=== PATIENT | male | born 1975 | race African-American/Black ===

== ENCOUNTER 2016-06-21 06:14 | Day surgery (SDC) | payer OTHER ==
[2016-06-21] MEDS ORDERED: LACTATED RINGERS 1,000 ML IV ONE (07:03)
[2016-06-21] MEDS: INSULIN REGULAR HUMAN 100 UNIT/1 ML 10 ML MDV ONE ×2 (07:48→08:15)
[2016-06-21] MEDS ORDERED: fentaNYL 250 MCG/5 ML VIAL IVP ONE (09:16)
[2016-06-21] MEDS ORDERED: MIDAZOLAM 2 MG/2 ML VIAL IVP ONE (09:16)
== END 2016-06-21 06:15 | disposition home or self-care (01) ==
PROC: 0DJD8ZZ Inspection of Lower Intestinal Tract, Via Natural or Artificial Opening Endoscopic (ICD-10-PCS; principal; 2016-06-21 07:30)
DX: K62.5 Hemorrhage of anus and rectum (principal); K60.2 Anal fissure, unspecified; K64.8 Other hemorrhoids; I10 Essential (primary) hypertension; E11.43 Type 2 diabetes mellitus with diabetic autonomic (poly)neuropathy; Z79.4 Long term (current) use of insulin
CPT/HCPCS: 45378; J1815; J3010; J7120

== ENCOUNTER 2016-09-07 19:34 | Outpatient (CLI) | payer OTHER | END 2016-09-07 19:35 | disposition home or self-care (01) | DX: I10 Essential (primary) hypertension (principal); J01.90 Acute sinusitis, unspecified; M54.5 Low back pain; E11.9 Type 2 diabetes mellitus without complications ==

== ENCOUNTER 2016-10-25 14:41 | Outpatient (CLI) | payer OTHER ==
--- NOTE | 2016-10-25 16:03 | Ultrasound Report ---
SCROTAL DUPLEX: 10/25/2016 CLINICAL INDICATION: Intermittent left testicular pain. TECHNIQUE: Real-time sonographic vascular imaging was performed by the event sales assistant through the scrotum utilizing both color-flow and Doppler spectral analysis. Multiple technical services representative static images were saved for review. FINDINGS: The right testicle measures 3.6 x 3.0 x 1.3 cm. Small calcifications are seen within the testicular parenchyma. No definite mass or abnormal blood flow is seen. No hydrocele or varicocele is appreciated. The right epididymis is unremarkable. The left testicle measures 4.2 x 2.8 x 2.1 cm. The testicle demonstrates normal echotexture and blood flow. No hydrocele or varicocele is seen. The epididymis is unremarkable. IMPRESSION: RIGHT TESTICULAR MICROLITHIASIS. SURVEILLANCE ULTRASOUND IN ONE YEAR IS RECOMMENDED. NORMAL APPEARANCE OF THE LEFT TESTICLE. JOB #: [id number] EXT JOB #: [id number] MARIUSZ
== END 2016-10-25 14:42 | disposition home or self-care (01) ==
LOC: DI 14:41
PROVIDERS: ATTEND Family Medicine
DX: N50.89 Other specified disorders of the male genital organs (principal)
CPT/HCPCS: 76870; 93975

== ENCOUNTER 2017-01-25 07:45 | Outpatient (CLI) | payer OTHER ==
[2017-01-25 12:54] LABS: BASOPHILS # (AUTO) 0.1 10^3/uL (0.0-0.1); BASOPHILS % (AUTO) 0.8 %; EOSINOPHILS # (AUTO) 0.3 10^3/uL (0.0-0.7); EOSINOPHILS % (AUTO) 3.5 %; HCT - HEMATOCRIT 41.2 % (42.0-52.0); LYMPHOCYTES # (AUTO) 2.5 10^3/uL (1.5-3.5); LYMPHOCYTES % (AUTO) 35.4 %; MEAN CORPUSCULAR HEMOGLOBIN 31.4 pg (27.0-31.0); MEAN CORPUSCULAR VOLUME 92.4 fL (80.0-94.0); MEAN PLATELET VOLUME 10.1 fL (7.4-11.4); MONOCYTES # (AUTO) 0.6 10^3/uL (0.0-1.0); MONOCYTES % (AUTO) 8.5 %; NEUTROPHILS # (AUTO) 3.7 10^3/uL (1.5-6.6); NEUTROPHILS % (AUTO) 51.8 %; NUCLEATED RED BLOOD CELLS AUTO 0.1 /100WBC; RED BLOOD COUNT 4.46 10^6/uL (4.70-6.10); UNCORRECTED WHITE BLOOD COUNT 7.1 x10^3/uL; WHITE BLOOD COUNT 7.1 x10^3/uL (4.8-10.8)
[2017-01-25 13:36] LABS: HEMOGLOBIN A1C 1.46 g/dL
[2017-01-25 13:53] LABS: ALBUMIN/GLOBULIN RATIO 1.7 (1.0-2.2); BILIRUBIN,TOTAL 0.4 mg/dL (0.2-1.0); BUN - BLOOD UREA NITROGEN 10 mg/dL (6-20); CALCIUM 8.8 mg/dL (8.5-10.3); CARBON DIOXIDE - CO2 26 mmol/L (21-32); CHLORIDE 107 mmol/L (101-111); CHOL/HDL RATIO 2.9 (<5.0); CHOLESTEROL 149 mg/dL; CREATININE 0.7 mg/dL (0.6-1.2); GFR - MDRD 150 (>89); GLUCOSE 153 mg/dL (70-100); HDL CHOLESTEROL 51 mg/dL; LDL/HDL RATIO 1.7 (<3.6); POTASSIUM 3.8 mmol/L (3.5-5.0); SODIUM 138 mmol/L (135-145); TOTAL PROTEIN 6.4 g/dL (6.7-8.2); TRIGLYCERIDES 56 mg/dL; VLDL CHOLESTEROL 11 mg/dL
== END 2017-01-25 07:46 | disposition home or self-care (01) ==
LOC: LAB.WCP 07:45
PROVIDERS: ATTEND Internal Medicine
DX: E11.40 Type 2 diabetes mellitus with diabetic neuropathy, unspecified (principal)
CPT/HCPCS: 36415; 80053; 80061; 82043; 82570; 83036; 84443; 85025

== ENCOUNTER 2017-01-28 18:10 | Outpatient (CLI) | payer OTHER | END 2017-01-28 18:11 | disposition home or self-care (01) | LOC: DI 18:10 | PROVIDERS: ATTEND Internal Medicine | DX: Z53.9 Procedure and treatment not carried out, unspecified reason (principal) ==

== ENCOUNTER 2017-03-04 15:45 | Outpatient (CLI) | payer OTHER ==
[2017-03-04] MEDS ORDERED: IOPAMIDOL-300 100 ML VIAL IVP ONE (18:44)
[2017-03-04] MEDS ORDERED: IOPAMIDOL-300 50 ML VIAL PO ONE (18:44)
--- NOTE | 2017-03-05 16:39 | CT Report ---
EXAM: CT ABDOMEN AND PELVIS EXAM DATE: 03/04/2017 06:44 p.m. CLINICAL HISTORY: Suprapubic abdomen pain. COMPARISONS: None. TECHNIQUE: Routine helical CT imaging was performed through the abdomen and pelvis. IV contrast: 100 mL of Isovue-300. Enteric contrast: Yes. Reconstructions: Coronal and sagittal. In accordance with CT protocol optimization, one or more of the following dose reduction techniques w ere utilized for this exam: automated exposure control, adjustment of mA and/or KV based on patient s ize, or use of iterative reconstructive technique. FINDINGS: Lung Bases: Unremarkable. Liver: Normal. No masses. Gallbladder/Bile Ducts: Unremarkable. Spleen: Normal. Pancreas: Normal. Adrenal Glands: Normal. Kidneys: Normal. No masses or hydronephrosis. Peritoneal Cavity/Bowel: Normal. No free fluid, free air or adenopathy. No masses or acute inflammato ry process. The appendix is well visualized and normal. Pelvic Organs: The prostate and bladder are unremarkable. Vasculature: No aneurysms or other significant abnormality. Bones: Anterior sacroiliac joint bridging noted. Other: None. IMPRESSION: Normal abdomen and pelvis CT. [facility] Referring Provider Line: [phone] SITE ID: [id number]
== END 2017-03-04 15:46 | disposition home or self-care (01) ==
LOC: DI 15:45
PROVIDERS: ATTEND Family Medicine
DX: R10.9 Unspecified abdominal pain (principal)
CPT/HCPCS: 74177

== ENCOUNTER 2017-06-12 20:21 | Emergency (ER) | payer OTHER ==
[2017-06-12 21:24] LABS: BASOPHILS # (AUTO) 0.1 10^3/uL (0.0-0.1); BASOPHILS % (AUTO) 1.3 %; EOSINOPHILS # (AUTO) 0.3 10^3/uL (0.0-0.7); EOSINOPHILS % (AUTO) 4.2 %; HGB - HEMOGLOBIN 14.5 g/dL (14.0-18.0); LYMPHOCYTES # (AUTO) 2.1 10^3/uL (1.5-3.5); LYMPHOCYTES % (AUTO) 28.8 %; MEAN CORPUSCULAR HEMOGLOBIN 31.3 pg (27.0-31.0); MEAN CORPUSCULAR HGB CONC 34.7 g/dL (32.0-36.0); MEAN CORPUSCULAR VOLUME 90.2 fL (80.0-94.0); MEAN PLATELET VOLUME 8.2 fL (7.4-11.4); MONOCYTES # (AUTO) 0.6 10^3/uL (0.0-1.0); MONOCYTES % (AUTO) 8.5 %; NEUTROPHILS # (AUTO) 4.1 10^3/uL (1.5-6.6); NEUTROPHILS % (AUTO) 57.2 %; PLT - PLATELET COUNT 220 10^3/uL (130-450); RED BLOOD COUNT 4.63 10^6/uL (4.70-6.10); RED CELL DISTRIBUTION WIDTH 13.1 % (12.0-15.0); WHITE BLOOD COUNT 7.2 x10^3/uL (4.8-10.8)
[2017-06-12 21:33] LABS: CALCIUM 9.1 mg/dL (8.5-10.3); CREATININE 0.7 mg/dL (0.6-1.2)
[2017-06-12] MEDS ORDERED: IOPAMIDOL-300 100 ML VIAL ONE (21:52)
[2017-06-12] MEDS ORDERED: IOPAMIDOL-300 100 ML VIAL IVP ONE (22:06)
[2017-06-12 22:32] VITALS: BP 168/100
--- NOTE | 2017-06-12 22:43 | CT Preliminary Report ---
Exam: CT ABDOMEN/PELVIS W/ IMPRESSION: 1. No solid organ injury. 2. Diverticulosis. The appendix. No inflammation. 3. No pneumoperitoneum, ascites or hemoperitoneum. [facility] SITE ID: [id number]
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
== END 2017-06-12 23:03 | disposition home or self-care (01) ==
LOC: ED 20:21
DX: S30.1XXA Contusion of abdominal wall, initial encounter (principal); V43.52XA Car driver injured in collision with other type car in traffic accident, initial encounter; Y92.411 Interstate highway as the place of occurrence of the external cause; E11.65 Type 2 diabetes mellitus with hyperglycemia; E11.42 Type 2 diabetes mellitus with diabetic polyneuropathy; Z79.4 Long term (current) use of insulin; Z79.82 Long term (current) use of aspirin
CPT/HCPCS: 36415; 74177; 80048; 85025; 99283; Q9967

== ENCOUNTER 2017-09-20 08:00 | Outpatient (CLI) | payer OTHER | END 2017-09-20 08:01 | disposition home or self-care (01) | LOC: LAB.WCP 08:00 | PROVIDERS: ATTEND Family Medicine | DX: Z79.891 Long term (current) use of opiate analgesic (principal) | CPT/HCPCS: 80307; 80361; 80365; 81599 ==

== ENCOUNTER 2017-09-28 08:00 | Outpatient (CLI) | payer OTHER ==
[2017-09-28 19:23] LABS: HGB - HEMOGLOBIN 13.8 g/dL (14.0-18.0); MEAN CORPUSCULAR HEMOGLOBIN 30.6 pg (27.0-31.0); MEAN CORPUSCULAR HGB CONC 33.1 g/dL (32.0-36.0); MEAN CORPUSCULAR VOLUME 92.3 fL (80.0-94.0); MEAN PLATELET VOLUME 9.6 fL (7.4-11.4); RED BLOOD COUNT 4.51 10^6/uL (4.70-6.10); RED CELL DISTRIBUTION WIDTH 13.1 % (12.0-15.0); WHITE BLOOD COUNT 8.3 x10^3/uL (4.8-10.8)
== END 2017-09-28 08:01 | disposition home or self-care (01) ==
LOC: LAB.WCP 08:00
PROVIDERS: ATTEND Family Medicine
DX: E11.621 Type 2 diabetes mellitus with foot ulcer (principal); L97.519 Non-pressure chronic ulcer of other part of right foot with unspecified severity
CPT/HCPCS: 36415; 85027

== ENCOUNTER 2017-10-05 10:20 | Outpatient (CLI) | payer OTHER ==
[2017-10-05 12:49] LABS: MEAN RETIC VALUE 118.1; RED BLOOD COUNT 4.58 10^6/uL (4.70-6.10)
[2017-10-05 13:28] LABS: FERRITIN 221.5 ng/mL (23.9-336.2)
[2017-10-05 13:31] LABS: FOLATE 14.7 ng/mL (5.90 - >24.8)
[2017-10-05 13:34] LABS: % IRON SATURATION 31 % (20-50); IRON 80 ug/dL (45-182); TOTAL IRON BINDING CAPACITY 256 ug/dL (250-450); TRANSFERRIN 183 mg/dL (180-329)
== END 2017-10-05 10:21 ==
LOC: LAB.WCP 10:20
PROVIDERS: ATTEND Family Medicine
DX: D64.9 Anemia, unspecified (principal)
CPT/HCPCS: 36415; 82607; 82728; 82746; 83540; 84466; 85044

== ENCOUNTER 2018-04-07 11:17 | Emergency (ER) | payer OTHER ==
[2018-04-07 12:44] LABS: BASOPHILS # (AUTO) 0.1 10^3/uL (0.0-0.1); BASOPHILS % (AUTO) 0.8 %; EOSINOPHILS # (AUTO) 0.2 10^3/uL (0.0-0.7); EOSINOPHILS % (AUTO) 1.9 %; HGB - HEMOGLOBIN 14.8 g/dL (14.0-18.0); LYMPHOCYTES # (AUTO) 1.7 10^3/uL (1.5-3.5); LYMPHOCYTES % (AUTO) 14.4 %; MEAN CORPUSCULAR HEMOGLOBIN 31.8 pg (27.0-31.0); MEAN CORPUSCULAR HGB CONC 34.4 g/dL (32.0-36.0); MEAN CORPUSCULAR VOLUME 92.2 fL (80.0-94.0); MEAN PLATELET VOLUME 8.5 fL (7.4-11.4); MONOCYTES # (AUTO) 1.2 10^3/uL (0.0-1.0); MONOCYTES % (AUTO) 10.2 %; NEUTROPHILS # (AUTO) 8.6 10^3/uL (1.5-6.6); NEUTROPHILS % (AUTO) 72.7 %; PLT - PLATELET COUNT 227 10^3/uL (130-450); RED BLOOD COUNT 4.65 10^6/uL (4.70-6.10); RED CELL DISTRIBUTION WIDTH 12.8 % (12.0-15.0); WHITE BLOOD COUNT 11.8 x10^3/uL (4.8-10.8)
[2018-04-07 13:00] LABS: ALBUMIN 4.2 g/dL (3.2-5.5); ALBUMIN/GLOBULIN RATIO 1.4 (1.0-2.2); BILIRUBIN,TOTAL 0.7 mg/dL (0.2-1.0); CALCIUM 8.7 mg/dL (8.5-10.3); CREATININE 0.9 mg/dL (0.6-1.2); TOTAL PROTEIN 7.1 g/dL (6.7-8.2)
[2018-04-07] MEDS ORDERED: CIPROFLOXACIN 250 MG TABLET PO STA (13:11)
[2018-04-07] MEDS ORDERED: oxyCODONE 5 MG TABLET PO STA (13:12)
[2018-04-07 13:27] LABS: BILIRUBIN,URINE NEGATIVE (NEGATIVE); GLUCOSE, URINE (UA) >=1000 mg/dL (NEGATIVE); KETONES,URINE (UA) NEGATIVE (NEGATIVE); LEUKOCYTE ESTERASE, URINE NEGATIVE (NEGATIVE); NITRITE,URINE NEGATIVE (NEGATIVE); OCCULT BLOOD,URINE NEGATIVE (NEGATIVE); PH,URINE 6.5 PH (5.0-7.5); PROTEIN,URINE NEGATIVE (NEGATIVE); UROBILINOGEN,URINE 0.2 (NORMAL) E.U./dL (NORMAL)
[2018-04-07 13:36] LABS: CLARITY,URINE CLEAR (CLEAR)
[2018-04-07 14:02] VITALS: BP 155/90
--- NOTE | 2018-04-07 14:31 | ED Physician Documentation ---
PD HPI MALE - Stated complaint Stated Complaint: BACK PX/MALE - Chief complaint Chief Complaint: Abd Pain - History obtained from History obtained from: Patient - History of Present Illness Timing - duration: Days (2) Timing - details: Still present Associated symptoms: Testiclar pain Similar symptoms before: Diagnosis (History of prostatitis.) - Additional information Additional information: The patient is a 43-year-old insulin-dependent diabetic male who presents with left testicular pain that started yesterday and is more severe today. He denies fever, nausea, vomiting, or dysuria. He reports history of prostatitis years ago, and states that this feels the same. Review of Systems Constitutional: denies: Fever Nose: denies: Congestion Respiratory: denies: Cough GI: denies: Abdominal Pain, Nausea, Vomiting : reports: Testicular pain (left). denies: Dysuria Skin: denies: Rash PD PAST MEDICAL HISTORY - Past Medical History Past Medical History: Yes Cardiovascular: Hypertension Respiratory: None Endocrine/Autoimmune: Type 2 diabetes, Other GI: GERD : None HEENT: None Psych: Anxiety Musculoskeletal: Chronic back pain, Other Derm: None - Past Surgical History Past Surgical History: No Ortho: Other - Present Medications Home Medications: Ambulatory Orders Medication Instructions Recorded Confirmed HYDROcod/ACETAM 5/325 [Vicodin 1 each PO TID PRN 08/09/13 04/08/18 5/325] Insulin Lispro [Humalog] 72 unit [id number] DAILY 08/09/13 04/08/18 Aspirin [Aspir 81] 81 mg PO DAILY 12/12/13 04/08/18 Ergocalciferol [Vitamin D2] 50,000 units PO TH@0900 04/08/18 04/08/18 Gabapentin 300 mg PO QPM 04/08/18 04/08/18 Lisinopril 10 mg PO DAILY 04/08/18 04/08/18 Sertraline HCl 100 mg PO DAILY 04/08/18 04/08/18 - Allergies Allergies/Adverse Reactions: Allergies Allergy/AdvReac Type Severity Reaction Status Date / Time azithromycin AdvReac Nausea Verified 04/08/18 11:09 - Social History Does the pt smoke?: No Smoking Status: Never smoker Does the pt drink ETOH?: Yes Does the pt have substance abuse?: No - Immunizations Immunizations are current?: Yes - POLST Patient has POLST: No PD ED PE NORMAL - Vitals Vital signs reviewed: Yes (initially hypertensive.) - General General: Alert and oriented X 3, Well developed/nourished - HEENT HEENT: Atraumatic, Pharynx benign - Cardiac Cardiac: RRR - Respiratory Respiratory: No respiratory distress - Abdomen Abdomen: Soft, Non tender - Male Male : Other (There is no scrotal swelling or erythema. The left testicle is tender to palpation, particularly posteriorly, along the epididymis.) - Derm Derm: No rash - Neuro Neuro: Alert and oriented X 3, Normal speech Results - Vitals Vitals: Oxygen O2 Source Room air - Labs Labs: Laboratory Tests 04/07/18 04/07/18 04/07/18 12:05 12:35 12:35 WBC 11.8 H RBC 4.65 L Hgb 14.8 Hct 42.9 MCV 92.2 MCH 31.8 H MCHC 34.4 RDW 12.8 Plt Count 227 MPV 8.5 Neut # (Auto) 8.6 H Lymph # (Auto) 1.7 [place] # (Auto) 1.2 H Eos # (Auto) 0.2 Baso # (Auto) 0.1 Absolute Nucleated RBC 0.00 Nucleated RBC % 0.0 Sodium 136 Potassium 3.8 Chloride 102 Carbon Dioxide 26 Anion Gap 8.0 BUN 13 Creatinine 0.9 Estimated GFR (MDRD) 111 Glucose 280 H POC Whole Bld Glucose 287 H Calcium 8.7 Total Bilirubin 0.7 AST 20 ALT 26 Alkaline Phosphatase 68 Total Protein 7.1 Albumin 4.2 Globulin 2.9 Albumin/Globulin Ratio 1.4 Lipase 20 L Urine Color Urine Clarity Urine pH Ur Specific [place] Urine Protein Urine Glucose (UA) Urine Ketones Urine Occult Blood Urine Nitrite Urine Bilirubin Urine Urobilinogen Ur Leukocyte Esterase Ur Microscopic Review Urine Culture Comments 04/07/18 12:50 WBC RBC Hgb Hct MCV MCH MCHC RDW Plt Count MPV Neut # (Auto) Lymph # (Auto) [place] # (Auto) Eos # (Auto) Baso # (Auto) Absolute Nucleated RBC Nucleated RBC % Sodium Potassium Chloride Carbon Dioxide Anion Gap BUN Creatinine Estimated GFR (MDRD) Glucose POC Whole Bld Glucose Calcium Total Bilirubin AST ALT Alkaline Phosphatase Total Protein Albumin Globulin Albumin/Globulin Ratio Lipase Urine Color YELLOW Urine Clarity CLEAR Urine pH 6.5 Ur Specific [place] 1.015 Urine Protein NEGATIVE Urine Glucose (UA) >=1000 H Urine Ketones NEGATIVE Urine Occult Blood NEGATIVE Urine Nitrite NEGATIVE Urine Bilirubin NEGATIVE Urine Urobilinogen 0.2 (NORMAL) Ur Leukocyte Esterase NEGATIVE Ur Microscopic Review NOT INDICATED Urine Culture Comments NOT INDICATED PD MEDICAL DECISION MAKING - ED course Complexity details: considered differential, d/w patient, d/w family ED course: The patient's presentation is most consistent with left epididymitis. His presentation does not suggest testicular torsion or inguinal hernia. Treatment in the emergency department included administration of ciprofloxacin 500 mg orally and Percocet 1 tablet orally. I discussed with him and his the expected course of illness, antibiotic treatment and outpatient follow-up, as well as potentially worrisome signs or symptoms that should prompt reevaluation in the emergency department. He is being discharged with prescriptions for L evaquin and for Percocet. Departure - Departure Disposition: 01 Home, Self Care Clinical Impression: Epididymitis Condition: Stable Instructions: ED Epididymitis Follow-Up: Yaritza Obrien PA [Primary Care Provider] - Comments: Take Levaquin daily as prescribed. You can use Percocet as prescribed if needed for pain. You can also use ibuprofen, up to 800 mg 3 times daily for its anti-inflammatory effect. Elevate your scrotum on a towel roll when lying down. Follow-up with your primary physician within 1-2 weeks. Call to schedule appointment. Return to the emergency department if you develop increasing pain or testicular swelling, or otherwise worsening symptoms. Forms: Activity restrictions Discharge Date/Time: 04/07/18 14:57
== END 2018-04-07 14:57 | disposition home or self-care (01) ==
LOC: ED 11:17
DX: N45.1 Epididymitis (principal); E11.9 Type 2 diabetes mellitus without complications; Z79.4 Long term (current) use of insulin; I10 Essential (primary) hypertension; Z79.82 Long term (current) use of aspirin
CPT/HCPCS: 36415; 80053; 81003; 83690; 85025; 99283; A9270; 81001; 87086

== ENCOUNTER 2018-04-08 10:49 | Inpatient (IN) | payer OTHER ==
[2018-04-08 11:15] LABS: BILIRUBIN,URINE NEGATIVE (NEGATIVE); GLUCOSE, URINE (UA) >=1000 mg/dL (NEGATIVE); KETONES,URINE (UA) NEGATIVE (NEGATIVE); LEUKOCYTE ESTERASE, URINE NEGATIVE (NEGATIVE); NITRITE,URINE NEGATIVE (NEGATIVE); OCCULT BLOOD,URINE NEGATIVE (NEGATIVE); PH,URINE 5.5 PH (5.0-7.5); PROTEIN,URINE NEGATIVE (NEGATIVE); UROBILINOGEN,URINE 0.2 (NORMAL) E.U./dL (NORMAL)
[2018-04-08 11:16] LABS: CLARITY,URINE CLEAR (CLEAR)
--- NOTE | 2018-04-08 13:02 | ED Physician Documentation ---
PD HPI ABD PAIN - Stated complaint Stated Complaint: LOW BODY PX - Chief complaint Chief Complaint: Abd Pain - History obtained from History obtained from: Patient - History of Present Illness Timing - onset: Other (2 days L testicular pain radiating to groin and abd. Pain is severe and Percocet is not helping. He has had prostatitis in the past and this is somewhat similar. He denies fevers. He was seen yesterday and started on Levaquin for presumed epididymitis.) Review of Systems Ten Systems: 10 systems reviewed and negative Constitutional: denies: Fever, Chills Cardiac: denies: Chest pain / pressure, Palpitations Respiratory: denies: Dyspnea, Cough GI: reports: Abdominal Pain, Nausea, Vomiting. denies: Constipation, Diarrhea PD PAST MEDICAL HISTORY - Past Medical History Cardiovascular: Hypertension Respiratory: None Endocrine/Autoimmune: Type 2 diabetes, Other GI: GERD : None HEENT: None Psych: Anxiety Musculoskeletal: Chronic back pain, Other Derm: None - Past Surgical History Past Surgical History: No Ortho: Other - Present Medications Home Medications: Ambulatory Orders Medication Instructions Recorded Confirmed HYDROcod/ACETAM 5/325 [Vicodin 1 each PO TID 08/09/13 03/09/17 5/325] Insulin Lispro [Humalog] 65 unit SQ DAILY 08/09/13 03/09/17 Aspirin [Aspir 81] 1 tab.ec PO DAILY 12/12/13 03/09/17 EPINEPHrine [Epipen] 1 pkg SQ ONCE PRN 12/12/13 03/09/17 ALPRAZolam [Alprazolam] 0.5 mg PO PRN PRN 03/09/17 03/09/17 Albuterol Sulfate [Proair Hfa 1 - 2 puffs INH Q4H PRN 03/09/17 03/09/17 Inhaler] Lovastatin 10 mg PO DAILY 03/09/17 03/09/17 Omeprazole 20 mg PO BID 03/09/17 03/09/17 Sertraline HCl [Zoloft] 100 mg PO DAILY 03/09/17 03/09/17 Levofloxacin [Levaquin] 500 mg PO DAILY #10 tablet 04/07/18 Oxycodone HCl/Acetaminophen 1 - 2 each PO Q6H PRN #14 tablet 04/07/18 [Percocet 5-325 mg Tablet] - Allergies Allergies/Adverse Reactions: Allergies Allergy/AdvReac Type Severity Reaction Status Date / Time azithromycin AdvReac Nausea Verified 04/08/18 11:09 - Social History Does the pt smoke?: No Smoking Status: Never smoker Does the pt drink ETOH?: Yes Does the pt have substance abuse?: No - Family History Family history: reports: Non contributory - Immunizations Immunizations are current?: Yes - POLST Patient has POLST: No PD ED PE NORMAL - Vitals Vital signs reviewed: Yes - General General: Alert and oriented X 3, Other (He definitely appears uncomfortable, moaning in pain standing by the bedside) - HEENT HEENT: PERRL, EOMI - Neck Neck: Supple, no meningeal sign, No bony TTP - Cardiac Cardiac: RRR, No murmur - Respiratory Respiratory: No respiratory distress, Clear bilaterally - Abdomen Abdomen: Non tender - Male Male : Other (Left testicle is mildly full and tender with normal lie) - Rectal Rectal: Other (Tender prostate but the whole rectal exam is tender, it does not seem to be focally the prostate.) - Back Back: No CVA TTP, No spinal TTP - Derm Derm: Normal color, Warm and dry - Extremities Extremities: No deformity, No tenderness to palpate, No edema, No calf tenderness / cord - Neuro Neuro: Alert and oriented X 3, Normal speech Results - Vitals Vitals: Vital Signs - 24 hr 04/08/18 04/08/18 04/08/18 11:06 12:52 15:17 Temperature 35.8 C L 37.1 C Heart Rate 97 98 82 Respiratory 20 22 16 Rate Blood Pressure 148/82 H 161/93 H 140/78 H O2 Saturation 98 99 98 04/08/18 15:20 Temperature 36.9 C Heart Rate Respiratory Rate Blood Pressure O2 Saturation Oxygen O2 Source Room air - Labs Labs: Laboratory Tests 04/08/18 04/08/18 04/08/18 11:11 13:23 13:23 WBC 13.1 H RBC 4.59 L Hgb 14.6 Hct 42.0 MCV 91.4 MCH 31.8 H MCHC 34.8 RDW 12.7 Plt Count 230 MPV 8.7 Neut # (Auto) 10.1 H Lymph # (Auto) 1.4 L [place] # (Auto) 1.3 H Eos # (Auto) 0.1 Baso # (Auto) 0.1 Absolute Nucleated RBC 0.00 Nucleated RBC % 0.0 Sodium 133 L Potassium 4.3 Chloride 102 Carbon Dioxide 22 Anion Gap 9.0 BUN 11 Creatinine 0.8 Estimated GFR (MDRD) 127 Glucose 408 H POC Whole Bld Glucose Lactic Acid Calcium 8.8 Total Bilirubin 0.6 AST 22 ALT 23 Alkaline Phosphatase 67 Total Protein 7.4 Albumin 4.0 Globulin 3.4 Albumin/Globulin Ratio 1.2 Lipase 20 L Urine Color YELLOW Urine Clarity CLEAR Urine pH 5.5 Ur Specific [place] 1.010 Urine Protein NEGATIVE Urine Glucose (UA) >=1000 H Urine Ketones NEGATIVE Urine Occult Blood NEGATIVE Urine Nitrite NEGATIVE Urine Bilirubin NEGATIVE Urine Urobilinogen 0.2 (NORMAL) Ur Leukocyte Esterase NEGATIVE Ur Microscopic Review NOT INDICATED Urine Culture Comments NOT INDICATED 04/08/18 04/08/18 13:23 15:16 WBC RBC Hgb Hct MCV MCH MCHC RDW Plt Count MPV Neut # (Auto) Lymph # (Auto) [place] # (Auto) Eos # (Auto) Baso # (Auto) Absolute Nucleated RBC Nucleated RBC % Sodium Potassium Chloride Carbon Dioxide Anion Gap BUN Creatinine Estimated GFR (MDRD) Glucose POC Whole Bld Glucose 274 H Lactic Acid 1.7 Calcium Total Bilirubin AST ALT Alkaline Phosphatase Total Protein Albumin Globulin Albumin/Globulin Ratio Lipase Urine Color Urine Clarity Urine pH Ur Specific [place] Urine Protein Urine Glucose (UA) Urine Ketones Urine Occult Blood Urine Nitrite Urine Bilirubin Urine Urobilinogen Ur Leukocyte Esterase Ur Microscopic Review Urine Culture Comments - Rads (name of study) CT A/P Radiology: EMP read contemporaneously (Inflammation of the rectum and the distal perirectal space with left lateral wall rectal abscess but a small) PD MEDICAL DECISION MAKING - ED course ED course: This is a morbidly obese poorly controlled type II diabetic who presents with worsening pain in the groin. Diagnosed clinically with epididymitis yesterday but worse pain today. Differential was broad and included Rimma's. As such both ultrasound and CT were done with findings showing a rectal abscess with rectal cellulitis. Given his size and comorbidities probably needs inpatient admission for IV antibiotics, potential drainage if it does not go down on its own. Spoke with Dr. Solis, the on-call surgeon at 3:[address] Richey the fundraising sale representative for admission at 3:25 PM Departure - Departure Disposition: [facility] DC/Xfer Clinical Impression: Rectal abscess, Rectal cellulitis Condition: Stable
[2018-04-08] MEDS ORDERED: HYDROmorphone 1 MG/ML CARPUJECT IVP STA ×2 (13:09→16:46)
[2018-04-08] MEDS ORDERED: ONDANSETRON 4 MG/2 ML VIAL IVP STA (13:09)
[2018-04-08] MEDS ORDERED: IOVERSOL 320 100 ML VIAL IVP ONE ×2 (13:20→13:57)
[2018-04-08 13:29] LABS: BASOPHILS # (AUTO) 0.1 10^3/uL (0.0-0.1); BASOPHILS % (AUTO) 0.9 %; EOSINOPHILS # (AUTO) 0.1 10^3/uL (0.0-0.7); EOSINOPHILS % (AUTO) 1.1 %; HGB - HEMOGLOBIN 14.6 g/dL (14.0-18.0); LYMPHOCYTES # (AUTO) 1.4 10^3/uL (1.5-3.5); LYMPHOCYTES % (AUTO) 11.1 %; MEAN CORPUSCULAR HEMOGLOBIN 31.8 pg (27.0-31.0); MEAN CORPUSCULAR HGB CONC 34.8 g/dL (32.0-36.0); MEAN CORPUSCULAR VOLUME 91.4 fL (80.0-94.0); MEAN PLATELET VOLUME 8.7 fL (7.4-11.4); MONOCYTES # (AUTO) 1.3 10^3/uL (0.0-1.0); MONOCYTES % (AUTO) 9.9 %; NEUTROPHILS # (AUTO) 10.1 10^3/uL (1.5-6.6); PLT - PLATELET COUNT 230 10^3/uL (130-450); RED BLOOD COUNT 4.59 10^6/uL (4.70-6.10); RED CELL DISTRIBUTION WIDTH 12.7 % (12.0-15.0); WHITE BLOOD COUNT 13.1 x10^3/uL (4.8-10.8)
[2018-04-08 13:44] LABS: ALBUMIN/GLOBULIN RATIO 1.2 (1.0-2.2); BILIRUBIN,TOTAL 0.6 mg/dL (0.2-1.0); CALCIUM 8.8 mg/dL (8.5-10.3); CREATININE 0.8 mg/dL (0.6-1.2); TOTAL PROTEIN 7.4 g/dL (6.7-8.2)
--- NOTE | 2018-04-08 14:29 | CT Report ---
Reason: IV only, LLQ pain, go through mid thigh? NSTI Procedure Date: 04/08/2018 Accession Number: [id number] / [id number] Procedure: CT - Abdomen/Pelvis W/ CPT Code: FULL RESULT: EXAM: CT ABDOMEN AND PELVIS EXAM DATE: 04/08/2018 01:53 PM. CLINICAL HISTORY: IV only, LLQ pain, go through mid thigh? NSTI. COMPARISONS: ABDOMEN/PELVIS W/ 06/12/2017 10:06 PM. TECHNIQUE: Routine helical CT imaging was performed through the abdomen and pelvis. IV contrast: optiray 320 100 ml. Enteric contrast: No. Reconstructions: Coronal and sagittal. In accordance with CT protocol optimization, one or more of the following dose reduction techniques were utilized for this exam: automated exposure control, adjustment of mA and/or KV based on patient size, or use of iterative reconstructive technique. FINDINGS: Lung Bases: There is a small clustered nodular density in the left lower lobe on images 2 and 3. Liver: Normal. No masses. Gallbladder/Bile Ducts: Unremarkable. Spleen: Normal. Pancreas: Normal. Adrenal Glands: Normal. Kidneys: There is a small cyst in the upper pole of the left kidney. Kidneys appear otherwise normal. Peritoneal Cavity/Bowel: The stomach and small bowel appear within normal limits. There is no colonic dilation or obstruction. The appendix appears normal. There is new thickening of the wall of the rectum. There is a moderate amount of perirectal fat stranding. There is a small hypodense structure in the left lateral wall of the lower rectum measuring 23 x 9 x 21 mm on series 3 image 84, possible intramural abscess. No perianal abscess. Pelvic Organs: Normal. The bladder and visualized pelvic organs are within normal limits. Vasculature: No aneurysms or other significant abnormality. Bones: No significant abnormality. Other: None. IMPRESSION: 1. New acute inflammatory changes of the rectum and distal perirectal space. 2. New small hypodense intramural structure in the left lateral wall of the rectum, possible small intramural abscess measuring 23 x 9 x 21 mm. 3. No intraperitoneal abscess. No perianal abscess. RADIA
--- NOTE | 2018-04-08 15:15 | Ultrasound Report ---
Reason: L testicle pain Procedure Date: 04/08/2018 Accession Number: [id number] / [id number] Procedure: US - Testicle w/Doppler CPT Code: FULL RESULT: EXAM: SCROTAL ULTRASOUND EXAM DATE: 04/08/2018 03:02 PM. CLINICAL HISTORY: L testicle pain. COMPARISON: 10/25/2016. TECHNIQUE: Real-time scanning was performed with static images obtained. Color-flow images were utilized. FINDINGS: Right: Testis: 3.1 x 2.2 x 2.2 cm. Small nodular intratesticular calcifications and some calcification in the region of the tunica albuginea are without juany change. Otherwise, normal size and echotexture. No mass or abnormal blood flow. Epididymis: 0.9 x 0.6 x 1.1 cm. Normal size and echotexture. No mass or abnormal blood flow. Hydrocele: None. Varicocele: None. Left: Testis: 3.6 x 2.1 x 2.8 cm. Normal size and echotexture. No mass, calcification, or abnormal blood flow. Epididymis: 1.1 x 0.7 x 1.2 cm. Normal size and echotexture. No mass or abnormal blood flow. Hydrocele: None. Varicocele: None. IMPRESSION: 1. No acute abnormality of the testicle/scrotum demonstrated. 2. Right testicular calcifications are without gross change. RADIA
[2018-04-08] MEDS ORDERED: levoFLOXacin 750 MG/150 ML 750 MG/150 ML BAG IV ONE (15:19)
[2018-04-08] MEDS ORDERED: metroNIDAZOLE 500 MG/100 ML 500 MG/100 ML BAG IV ONE (15:19)
[2018-04-08] MEDS ORDERED: TEMAZEPAM 15 MG CAPSULE PO PRN (15:32)
[2018-04-08] MEDS ORDERED: PROCHLORPERAZINE 10 MG/2 ML VIAL IVP PRN (15:32)
[2018-04-08] MEDS ORDERED: SODIUM CHLORIDE FLUSH 0.9% 10 ML SYRINGE IVP PRN (15:32)
[2018-04-08] MEDS ORDERED: ACETAMINOPHEN 325 MG TABLET PO PRN (15:32)
[2018-04-08] MEDS ORDERED: SODIUM CHLORIDE 0.9% 1,000 ML IV SCH (16:00)
[2018-04-08] MEDS ORDERED: HYDROcod/ACETAM 5/325 MG TABLET PO PRN (16:14)
[2018-04-08] MEDS ORDERED: HYDROmorphone 2 MG/ML VIAL IVP PRN (17:00)
--- NOTE | 2018-04-08 17:02 | CONSULTATION NOTE ---
Referring Provider Name of Referring Provider:: Dr. Granda Consult Date: 04/08/18 Chief Complaint - Chief Complaint Chief Complaint: left sided pelvic pain History of Present Illness - Admitted From Admitted From:: er - History Obtained From Records Reviewed: yes History obtained from: pt, records Exam Limitations: none - History of Present Illness HPI Comment/Other: 43 yo male with 2 day hx of left sided pelvic pain, described as pain in his left testis, left hip, and rectum, similar to pain when he was diagnosed with prostatitis several years ago. No fever, chills, change in bowel habits, melena, BRBPR, wt changes. Only thing that alleviates sx is sitz baths. Most comfortable standing when sx are severe. He is an IDDM using an insulin pump and his blood sugars have been in the 250-400 range the past several days. Recent A1c of 9 per pt. No dysuria, frequency, hematuria. Hx nl colonoscopy several years ago during evaluation of rectal bleeding. Evaluation in the ER yesterday was nondiagnostic and he returned today with persistent/worsening pain; Reevaluation today included non focal exam and a rectal exam showing diffuse tenderness. Scrotal US was neg and an abd/pelvic CT showed an intramural lower rectal wall abscess in the left lateral position. Surgical consult was requested. History - Past Medical History Cardiovascular: reports: Hypertension Respiratory: reports: None Endocrine/Autoimmune: reports: Type 2 diabetes, Other GI: reports: GERD : reports: Other (hx prostatitis) HEENT: reports: None Psych: reports: Anxiety Musculoskeletal: reports: Chronic back pain, Other Derm: reports: None MRSA Hx?: No - Past Surgical History Ortho: reports: Other (right shoulder and right wrist surgery) HEENT: reports: Tonsil/Adenoidectomy - Substance History Use: Uses substance without health or social issues: Alcohol (12 pack beer/week), Cannabis (daily) - POLST Patient has POLST: No Meds/Allgy - Home Medications Home Medications: Ambulatory Orders Medication Instructions Recorded Confirmed HYDROcod/ACETAM 5/325 [Vicodin 1 each PO TID PRN 08/09/13 04/08/18 5/325] Insulin Lispro [Humalog] 72 unit [id number] DAILY 08/09/13 04/08/18 Aspirin [Aspir 81] 81 mg PO DAILY 12/12/13 04/08/18 Ergocalciferol [Vitamin D2] 50,000 units PO TH@0900 04/08/18 04/08/18 Gabapentin 300 mg PO QPM 04/08/18 04/08/18 Lisinopril 10 mg PO DAILY 04/08/18 04/08/18 Sertraline HCl 100 mg PO DAILY 04/08/18 04/08/18 - Allergies Allergies/Adverse Reactions: Allergies Allergy/AdvReac Type Severity Reaction Status Date / Time azithromycin AdvReac Nausea Verified 04/08/18 11:09 Review of Systems - Constitutional Constitutional: denies: Fatigue, Fever, Chills - Gastrointestinal Gastrointestinal: reports: Reflux/heartburn. denies: Abdominal pain, Abdominal distention, Constipation, Diarrhea, Change in bowel habits, Rectal bleeding, Black stools, Bloody stools, Nausea, Vomiting, Coffee grounds emesis - Genitourinary Genitourinary: denies: Dysuria, Frequency, Urgency, Hematuria - Musculoskeletal Musculoskeletal: reports: Back pain (chronic, worse lower back past few days) - Hematologic/Lymphatic Hematologic/Lymphatic: denies: Bruising, Blood clots, Bleeding tendencies - All Other Systems All Other Systems: reports: Reviewed and negative Exam - Vital Signs Reviewed Vital Signs: Yes Vital Signs: Vital Signs x48h Temp Pulse Resp BP Pulse Ox 04/08/18 15:20 36.9 C 04/08/18 15:17 82 16 140/78 H 98 04/08/18 12:52 37.1 C 98 22 161/93 H 99 04/08/18 11:06 35.8 C L 97 20 148/82 H 98 - Physical Exam General Appearance: positive: Alert, Moderate distress Eyes Bilateral: positive: Normal inspection, PERRL, EOMI, Conjunctivae nml, No scleral icterus ENT: positive: ENT inspection nml, Pharynx nml, No signs of dehydration Neck: positive: Nml inspection, No JVD, Trachea midline. negative: Lymphadenopathy (R), Lymphadenopathy (L) Respiratory: positive: Chest non-tender, No respiratory distress, Breath sounds nml. negative: Wheezes, Rales, Rhonchi Cardiovascular: positive: Regular rate & rhythm, No murmur, No gallop Peripheral Pulses: positive: 2+ (DP bilat) Abdomen: positive: Non-tender, No organomegaly, Nml bowel sounds, No distention, Other (obese) Rectal: positive: Tenderness (exquisitely tender fluctuant lower rectal mass, 2 cm diameter, left anterolateral quadrant), Mass (exquisitely tender fluctuant l ower rectal mass, 2 cm diameter, left anterolateral quadrant) Back: positive: Nml inspection Skin: positive: Color nml, No rash, Warm, Dry Extremities: positive: Non-tender, Nml appearance, No pedal edema. negative: Calf tenderness Neurologic/Psychiatric: positive: Oriented x3 Conclusion/Plan - Diagnosis Diagnosis: Rectal wall abscess. IDDM with poor control, exacerbated by abscess - Plan Plan: To OR for EUA, I & D. PAR conf with pt and consent obtained. Procedure will be performed as soon as it can be arranged. - Lab Results Fish Bones: 04/08/18 13:23 04/08/18 13:23 - Diagnostic Imaging Results Diagnostic Imaging Results: positive: Final report reviewed, Read independently Diagnostic Imaging Results Comments: See HPI
--- NOTE | 2018-04-08 17:22 | ANESTHESIA ---
Pre-Anesthesia VS, & Labs - Diagnosis Diagnosis Rectal wall abscess IDDM with poor control, exacerbated by abscess - Procedure I&D rectal abcess Vital Signs: Temp Pulse Resp BP Pulse Ox 36.9 C 82 16 140/78 H 98 04/08/18 15:20 04/08/18 15:17 04/08/18 15:17 04/08/18 15:17 04/08/18 15:17 Height 6 ft Weight (kg) 133.81 kg Body Mass Index 40.0 - NPO >8 hours - Lab Results Current Lab Results: Laboratory Tests 04/08/18 16:54: POC Whole Bld Glucose 260 H 04/08/18 15:16: POC Whole Bld Glucose 274 H 04/08/18 13:23: Lactic Acid 1.7 04/08/18 13:23: Sodium 133 L, Potassium 4.3, Chloride 102, Carbon Dioxide 22, Anion Gap 9.0, BUN 11, Creatinine 0.8, Estimated GFR (MDRD) 127, Glucose 408 H, Calcium 8.8, Total Bilirubin 0.6, AST 22, ALT 23, Alkaline Phosphatase 67, Total Protein 7.4, Albumin 4.0, Globulin 3.4, Albumin/Globulin Ratio 1.2, Lipase 20 L 04/08/18 13:23: WBC 13.1 H, RBC 4.59 L, Hgb 14.6, Hct 42.0, MCV 91.4, MCH 31.8 H , MCHC 34.8, RDW 12.7, Plt Count 230, MPV 8.7, Neut # (Auto) 10.1 H, Lymph # (Auto) 1.4 L, [place] # (Auto) 1.3 H, Eos # (Auto) 0.1, Baso # (Auto) 0.1, Absolute Nucleated RBC 0.00, Nucleated RBC % 0.0 Lab results reviewed: Yes Fish Bones: 04/08/18 13:23 04/08/18 13:23 Home Medications and Allergies Home Medications: Ambulatory Orders Ergocalciferol [Vitamin D2] 50,000 units PO TH@0900 04/08/18 Gabapentin 300 mg PO QPM 04/08/18 Lisinopril 10 mg PO DAILY 04/08/18 Sertraline HCl 100 mg PO DAILY 04/08/18 Active Medications Acetaminophen (Tylenol) 650 mg PO Q4HR PRN PRN Reason: Pain or Fever > 38C (100.4F) Hydrocodone Bitart/Acetaminophen ([place] 5/325) 1 tab PO TID PRN PRN Reason: PAIN Famotidine (Pepcid) 20 mg PO BID KATHERIN Gabapentin (Neurontin) 300 mg PO QPM KATHERIN Hydromorphone HCl (Dilaudid (Vial)) 2 mg IVP Q2H PRN PRN Reason: PAIN 8-10 Last Admin: 04/08/18 16:49 Dose: 2 mg Sodium Chloride (Normal Saline 0.9%) 1,000 mls @ 80 mls/hr IV .[id number] [facility] Insulin Aspart (Novolog) 1 - 9 unit SUBQ 0800,1200,1700,2100 KATHERIN; Protocol Lisinopril (Zestril) 10 mg PO DAILY KATHERIN Polyethylene Glycol (Miralax) 17 gm PO DAILY [facility] Prochlorperazine Edisylate (Compazine Inj) 10 mg IVP Q6HR PRN PRN Reason: Nausea / Vomiting Sertraline HCl (Zoloft) 100 mg PO DAILY [facility] Sodium Chloride (Normal Saline Flush 0.9%) 10 ml IVP PRN PRN PRN Reason: NEEDED PER PROVIDER ORDERS Sodium Chloride (Normal Saline Flush 0.9%) 10 ml IVP 0100,0900,1700 KATHERIN Temazepam (Restoril) 15 mg PO QPM PRN PRN Reason: Insomnia HYDROcod/ACETAM 5/325 [Vicodin 5/325] 1 each PO TID PRN 08/09/13 Insulin Lispro [Humalog] 72 unit [id number] DAILY 08/09/13 Aspirin [Aspir 81] 81 mg PO DAILY 12/12/13 Ergocalciferol [Vitamin D2] 50,000 units PO TH@0900 04/08/18 Gabapentin 300 mg PO QPM 04/08/18 Lisinopril 10 mg PO DAILY 04/08/18 Sertraline HCl 100 mg PO DAILY 04/08/18 Allergies/Adverse Reactions: Allergies Allergy/AdvReac Type Severity Reaction Status Date / Time azithromycin AdvReac Nausea Verified 04/08/18 11:09 Anes History & Medical History - Anesthetic History Anesthesia Complications: reports: No previous complications Family history of Anesthesia Complications: Denies Family history of Malignant Hyperthermia: Denies - Medical History Cardiovascular: reports: Hypertension Pulmonary: reports: None Gastrointestinal: reports: GERD Urinary: reports: Other (hx prostatitis) Musculoskeletal: reports: Chronic back pain, Other Endocrine/Autoimmune: reports: Type 2 diabetes, Other Blood Disorders: reports: None Skin: reports: None Smoking Status: Never smoker - Surgical History Eyes Ears Nose Throat (EENT): Tonsil/Adenoidectomy Orthopedic: Other (right shoulder and right wrist surgery) Exam General: Alert, Oriented x3, Cooperative Dental: WNL Mouth Opening: Greater than 4 Fingerbreadths Neck Mobility: Normal Mallampati classification: II Thyromental Distance: 4-6 cm Respiratory: Lungs clear, Normal breath sounds, No respiratory distress Cardiovascular: Regular rate Neurological: Normal speech Mental/Cognitive Status: Alert/Oriented X3 Plan Anesthesia Type: MAC Consent for Procedure(s) Verified and Reviewed: Yes Code Status: Attempt Resuscitation ASA classification: 2-Mild systemic disease Is this case an emergency?: Yes
[2018-04-08] MEDS ORDERED: BUPIVACAINE 0.5% PF 30 ML VIAL ONE (17:37)
[2018-04-08] MEDS ORDERED: LIDOCAINE 1%-EPI 1:100000 30 ML MDV ONE (17:38)
[2018-04-08] MEDS ORDERED: KETAMINE 500 MG/10 ML VIAL IVP ONE (18:00)
[2018-04-08] MEDS ORDERED: KETOROLAC 30 MG/ML VIAL IVP ONE (18:00)
[2018-04-08] MEDS ORDERED: LIDOCAINE-MPF 2% 5 ML VIAL IM ONE (18:00)
[2018-04-08] MEDS ORDERED: PROPOFOL 200 MG/20 ML VIAL IVP ONE (18:00)
[2018-04-08] MEDS ORDERED: MIDAZOLAM 2 MG/2 ML VIAL IVP ONE (18:00)
[2018-04-08] MEDS ORDERED: LIDOCAINE 1%-EPI 1:100000 30 ML MDV SUBQ ONE (18:01)
[2018-04-08] MEDS ORDERED: BUPIVACAINE 0.5% PF 30 ML VIAL SUBQ ONE (18:01)
[2018-04-08] MEDS ORDERED: LIDOCAINE JELLY 2% 30 ML TUBE TOP ONE (18:16)
--- NOTE | 2018-04-08 18:33 | OPERATIVE REPORT ---
Operative Report - General Procedure Date: 04/08/18 Planned Procedure: I & D Rectal abscess Pre-Op Diagnosis: Rectal Abscess Procedure Performed: I & D Perirectal Abscess Post Op Diagnosis: Rectal Abscess - Procedure Note Primary Surgeon: Kenn Solis MD [facility] Anesthesia Provider: Prem Taylor CRNA Anesthesia Technique: Local, MAC Pathology: none Estimated Blood Loss (mL): 25 Complications: None - Other Other Information/Narrative: After informed consent, pt was taken to the OR, placed prone/jacknife with buttocks taped apart, sedated and monitored. He perianal skin was prepped with iodophor solution and 30 ml of a 50:50 combination of lidocaine 1% plain and bupivicaine 0.50% with epi was used for local anesthesia. He was reprepped and draped in the usual sterile fashion. His anal canal was gently dilated and a univalved anal speculum was used to perform anoscopy with findings of an antramural suprasphincteric left lateral fluctuant mass consistent witha perirectal abscess. Using a 15# blade and metzenbaum scissors the abscess cavity was entered and drained into the lumen of the lower rectum. Loculations were broken up bluntly with a finger. Hemostasis was achieved with pressure and time. A wick of Gel-foam soaked in viscous lidocaine was inserted into the anal canal and lower rectum and the procedure was terminated without apparent complication. Dry sterile dressings were applied, the procedure was terminated and patient transferred to the [facility] in satisfactory condition. Sponge and needle and instrument counts were correct x 2. No drains were used.
[2018-04-08] MEDS ORDERED: ONDANSETRON 4 MG/2 ML VIAL IVP PRN (18:36)
[2018-04-08] MEDS ORDERED: PIPERACILLIN/TAZOBACTAM 4.5 GM in SODIUM CHLORIDE 0.9% MINIBAG 100 ML IV SCH (19:00)
[2018-04-08] MEDS: SODIUM CHLORIDE FLUSH 0.9% 10 ML SYRINGE IVP SCH (19:02)
[2018-04-08] MEDS: INSULIN ASPART 300 UNIT/3 ML PEN SUBQ SCH ×2 (19:30→21:54)
[2018-04-08] MEDS ORDERED: FAMOTIDINE 20 MG TABLET PO SCH (21:00)
[2018-04-08] MEDS ORDERED: GABAPENTIN 300 MG CAPSULE PO SCH (21:00)
[2018-04-08] MEDS ORDERED: FAMOTIDINE 20 MG TABLET ONE (21:49)
[2018-04-08] MEDS ORDERED: GABAPENTIN 300 MG CAPSULE ONE (21:50)
[2018-04-08] MEDS ORDERED: INSULIN ASPART 300 UNIT/3 ML PEN SUBQ ONE (21:50)
[2018-04-08] MEDS: INSULIN GLARGINE 300 UNIT/3 ML PEN SUBQ SCH (21:53)
--- NOTE | 2018-04-08 23:04 | HISTORY & PHYSICAL EXAMINATION ---
DATE OF SERVICE: 04/08/2018 Physician: Monserrat Chaudhari MD CHIEF COMPLAINT: Back pain and buttock pain. HISTORY OF PRESENT ILLNESS: The patient is a pleasant 43-year-old male with past medical history of poorly controlled insulin-dependent diabetes with complications of neuropathy and diabetic foot. He also has chronic back pain and degenerative disk disease of the spine. Often has low back pain radiating to his left side, lower extremity and testis; therefore, when he started to develop back pain a few days ago initially he thought it was due to chronic degenerative disk problem. In any case, he developed low back pain about 3 days ago. The pain radiated to his testes and subsequently started to localize more into deep in his buttock. He came to the ER first on 04/07/2018 at which time he was diagnosed with epididymitis and was started on Levaquin. He was hemodynamically stable; therefore, he was discharged from the ER. Subsequently, his pain got worse and he came back on 04/08/2018. At that time, he underwent ultrasound of the testes which did not show any acute abnormality. Therefore, he was further imaged with a CT scan of the abdomen and pelvis. There was new acute inflammatory change in the rectum and in the distal perirectal space. There was a 2.3 x 0.9 x 2.1 cm small intramural rectal abscess. Regarding laboratory, his white blood cell count was elevated at 13.1, went up from previous day being 11.8. Blood glucose on admission was 408, subsequently checked,it was 274. Lactic acid was 17. Vital signs showed a heart rate of 106, blood pressure was 150/87, respiratory rate was 16, oxygen saturation 100% on room air. Patient was taken to the OR by Dr. Kenn Solis and the abscess was drained. Initially, the patient was on Levaquin and Flagyl. Subsequently following the surgery, Dr. Solis started Zosyn. I saw the patient after he was out of the OR. He felt somewhat better. We discussed his diabetic control. He told me that his most recent hemoglobin A1c was 9.5. He usually runs an insulin pump with about 90 units daily insulin use. Currently, the insulin pump is actually out of insulin and it was turned off prior to surgery. The patient reported that most recently he had been fighting upper respiratory infections, plus he had a diabetic foot a few months ago; therefore, his most recent A1c is higher than usual all these problems he has been dealing with likely caused his poor diabetic control. PAST MEDICAL HISTORY 1. Obesity. 2. Insulin-dependent diabetes diagnosed at age 22 possibly late onset type 1. 3. Neuropathy. 4. Diabetic foot. 5. Chronic back pain secondary to degenerative disk disease of the spine. 6. Prostatitis. 7. Hypertension. 8. Dyslipidemia. OUTPATIENT MEDICATIONS 1. Insulin pump delivering about 90 units insulin daily. 2. Lisinopril. 3. Aspirin. 4. Gabapentin. 5. Vitamin D. 6. Vicodin. 7. Zoloft. SOCIAL HISTORY: The patient used to smoke cigars, currently he is not a smoker. 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 CODE STATUS: FULL CODE. FAMILY HISTORY: Positive for diabetes, coronary artery disease and cerebrovascular accident in the mother and coronary artery disease in the father. PRIMARY CARE PROVIDER: AIRAM Menjivar REVIEW OF SYSTEMS: Please see pertinent positives listed above at history of present illness, the patient did not report additional complaints on the 12- point review. In particular, he denied fever, and he reported regular bowel movements. PHYSICAL EXAMINATION VITAL SIGNS: Please see listed above at history of present illness. GENERAL: The patient is a well-developed male who was not in distress. NEUROLOGIC: Alert and oriented, nonfocal. PSYCHIATRIC: Cooperative, pleasant to talk to. SKIN: The patient had dark skin, I could not appreciate jaundice or rash. CVS: S1, S2 regular, no pathologic murmur. RESPIRATORY: Clear to auscultation bilaterally without wheeze or crackles. ABDOMEN: Benign, nontender, without guarding or rebound. Bowel tones hypoactive. LYMPH: No lymphedema. NAILS: With onychomycosis and some broken nails. MUSCULOSKELETAL: On the feet there are some calluses and healed wounds. No open wound. ASSESSMENT AND PLAN: The patient is a 43-year-old male with poorly controlled diabetes, who is getting admitted with a rectal abscess. ACTIVE ISSUE/PLAN 1. Regarding, poorly controlled diabetes it is, probably late onset type 1. The patient is using an insulin pump with usually 90 units insulin per 24 hours. Considering that he is insulin-dependent, his basal insulin requirement would be anywhere between 50%-30% of the daily use. Therefore, even if he would not be eating, he would use at least 30 units of insulin. Considering that, as his insulin pump ran out and he cannot restart it tonight, we will cover him with long-acting insulin. I ordered 20 units insulin Lantus twice daily, that will give about 40 units daily insulin, and the rest of his need will be covered on insulin sliding scale. 2. Rectal abscess, status post surgical drainage. Currently on Zosyn, which will be continued. We will add lactobacillus for bowel prophylaxis. 3. Systemic inflammatory response, the patient was tachycardic on admission. He has leukocytosis, and the source of infection is rectal abscess. He will be borderline for the diagnosis of sepsis, but he definitely rules in for systemic inflammatory response. 4. Hyperglycemia without electrolyte abnormality, no diabetic ketoacidosis, will be managed with insulin. 5. Multiple chronic medical problems including back pain, hypertension, dyslipidemia. Hemodynamically stable. Spent in the care of this patient was 50 minutes. ATTESTATION: I certify that the reasonable expectation for this patient is to stay in the hospital for at least 2 days. He meets inpatient criteria, having a rectal abscess, poorly controlled diabetes, and systemic inflammatory response. He will most likely be discharged within 96 hours or transferred to another facility. TD: 04/08/2018 20:49 MARIUSZ
[2018-04-08] MEDS ORDERED: SODIUM CHLORIDE FLUSH 0.9% 10 ML SYRINGE ONE (23:41)
[2018-04-09] MEDS: SODIUM CHLORIDE FLUSH 0.9% 10 ML SYRINGE IVP SCH ×3 (02:16→16:26)
[2018-04-09] MEDS ORDERED: SODIUM CHLORIDE FLUSH 0.9% 10 ML SYRINGE ONE (03:44)
[2018-04-09] MEDS ORDERED: HYDROcod/ACETAM 5/325 MG TABLET ONE (03:52)
[2018-04-09] MEDS ORDERED: PIPERACILLIN/TAZOBACTAM 4.5 GM in SODIUM CHLORIDE 0.9% MINIBAG 100 ML IV SCH (04:00)
[2018-04-09 06:08] LABS: BASOPHILS # (AUTO) 0.1 10^3/uL (0.0-0.1); BASOPHILS % (AUTO) 0.8 %; EOSINOPHILS # (AUTO) 0.2 10^3/uL (0.0-0.7); EOSINOPHILS % (AUTO) 1.7 %; HGB - HEMOGLOBIN 13.8 g/dL (14.0-18.0); LYMPHOCYTES # (AUTO) 1.7 10^3/uL (1.5-3.5); LYMPHOCYTES % (AUTO) 18.7 %; MEAN CORPUSCULAR HEMOGLOBIN 32.2 pg (27.0-31.0); MEAN CORPUSCULAR HGB CONC 34.3 g/dL (32.0-36.0); MEAN CORPUSCULAR VOLUME 93.8 fL (80.0-94.0); MEAN PLATELET VOLUME 8.7 fL (7.4-11.4); MONOCYTES # (AUTO) 1.1 10^3/uL (0.0-1.0); NEUTROPHILS # (AUTO) 6.1 10^3/uL (1.5-6.6); NEUTROPHILS % (AUTO) 66.8 %; PLT - PLATELET COUNT 214 10^3/uL (130-450); RED BLOOD COUNT 4.28 10^6/uL (4.70-6.10); RED CELL DISTRIBUTION WIDTH 12.9 % (12.0-15.0); WHITE BLOOD COUNT 9.1 x10^3/uL (4.8-10.8)
[2018-04-09 06:22] LABS: CALCIUM 8.4 mg/dL (8.5-10.3); CREATININE 0.8 mg/dL (0.6-1.2)
[2018-04-09 06:30] LABS: HB2 TOTAL 14.9 g/dL; HEMOGLOBIN A1C 1.34 g/dL; HEMOGLOBIN A1C % 10.4 % (4.6-6.2)
[2018-04-09] MEDS ORDERED: INSULIN ASPART 300 UNIT/3 ML PEN SUBQ SCH ×2 (08:00→17:00)
--- NOTE | 2018-04-09 08:09 | PROVIDER PROGRESS NOTE ---
Subjective - General Admit Date: 04/08/18 Procedure Date: 04/08/18 Post Op Days: 1 Procedure Performed: I & D Rectal abscess - Review of Systems Wound/Incisions: positive: Drainage (minimal bloody drainage per pt) General: positive: No symptoms Gastrointestinal: positive: No symptoms, Hematochezia (minimal), Other (mild rectal discomfot at this time) Genitourinary: positive: No symptoms All Other Systems: positive: Reviewed and negative Objective - Patient Data Reviewed Vital Signs: Yes Vital Signs: Vital Signs x48h Temp Pulse Resp BP Pulse Ox 04/09/18 04:34 36.5 C 87 18 140/79 H 99 Weight: Weight 04/07/18 04/08/18 04/09/18 23:59 23:59 23:59 Weight (kg) 128.5 kg 129.5 kg Intake & Output: Intake and Output Totals x24h 04/07/18 04/08/18 04/09/18 23:59 23:59 23:59 Intake Total 921.3 300 Balance 921.3 300 - Lab Results Lab Results: 04/09/18 05:35 04/09/18 05:35 Other Lab Results: Lab Results x24hrs 04/09/18 04/09/18 04/09/18 Range/Units 05:35 05:35 05:35 WBC 9.1 (4.8-10.8) x10^3/uL RBC 4.28 L (4.70-6.10) 10^6/uL Hgb 13.8 L (14.0-18.0) g/dL Hct 40.1 L (42.0-52.0) % MCV 93.8 (80.0-94.0) fL MCH 32.2 H (27.0-31.0) pg MCHC 34.3 (32.0-36.0) g/dL RDW 12.9 (12.0-15.0) % Plt Count 214 (130-450) 10^3/uL MPV 8.7 (7.4-11.4) fL Neut # (Auto) 6.1 (1.5-6.6) 10^3/uL Lymph # (Auto) 1.7 (1.5-3.5) 10^3/uL [place] # (Auto) 1.1 H (0.0-1.0) 10^3/uL Eos # (Auto) 0.2 (0.0-0.7) 10^3/uL Baso # (Auto) 0.1 (0.0-0.1) 10^3/uL Absolute Nucleated RBC 0.01 x10^3/uL Nucleated RBC % 0.1 /100WBC Sodium 132 L (135-145) mmol/L Potassium 3.9 (3.5-5.0) mmol/L Chloride 101 (101-111) mmol/L Carbon Dioxide 23 (21-32) mmol/L Anion Gap 8.0 (6-13) BUN 8 (6-20) mg/dL Creatinine 0.8 (0.6-1.2) mg/dL Estimated GFR (MDRD) 127 (>89) Glucose 262 H (70-100) mg/dL POC Whole Bld Glucose (70 - 100) mg/dL Glycated Hemoglobin 10.4 H (4.6-6.2) % Estim Average Glucose 252 H (70-100) Lactic Acid (0.5-2.2) mmol/L Calcium 8.4 L (8.5-10.3) mg/dL Total Bilirubin (0.2-1.0) mg/dL AST (10-42) IU/L ALT (10-60) IU/L Alkaline Phosphatase (42-121) IU/L Total Protein (6.7-8.2) g/dL Albumin (3.2-5.5) g/dL Globulin (2.1-4.2) g/dL Albumin/Globulin Ratio (1.0-2.2) Lipase (22-51) U/L Urine Color Urine Clarity (CLEAR) Urine pH (5.0-7.5) PH Ur Specific [place] (1.002-1.030) Urine Protein (NEGATIVE) mg/dL Urine Glucose (UA) (NEGATIVE) mg/dL Urine Ketones (NEGATIVE) mg/dL Urine Occult Blood (NEGATIVE) Urine Nitrite (NEGATIVE) Urine Bilirubin (NEGATIVE) Urine Urobilinogen (NORMAL) E.U./dL Ur Leukocyte Esterase (NEGATIVE) Ur Microscopic Review Urine Culture Comments 04/09/18 04/08/18 04/08/18 Range/Units 03:52 21:53 19:14 WBC (4.8-10.8) x10^3/uL RBC (4.70-6.10) 10^6/uL Hgb (14.0-18.0) g/dL Hct (42.0-52.0) % MCV (80.0-94.0) fL MCH (27.0-31.0) pg MCHC (32.0-36.0) g/dL RDW (12.0-15.0) % Plt Count (130-450) 10^3/uL MPV (7.4-11.4) fL Neut # (Auto) (1.5-6.6) 10^3/uL Lymph # (Auto) (1.5-3.5) 10^3/uL [place] # (Auto) (0.0-1.0) 10^3/uL Eos # (Auto) (0.0-0.7) 10^3/uL Baso # (Auto) (0.0-0.1) 10^3/uL Absolute Nucleated RBC x10^3/uL Nucleated RBC % /100WBC Sodium (135-145) mmol/L Potassium (3.5-5.0) mmol/L Chloride (101-111) mmol/L Carbon Dioxide (21-32) mmol/L Anion Gap (6-13) BUN (6-20) mg/dL Creatinine (0.6-1.2) mg/dL Estimated GFR (MDRD) (>89) Glucose (70-100) mg/dL POC Whole Bld Glucose 308 H 331 H 282 H (70 - 100) mg/dL Glycated Hemoglobin (4.6-6.2) % Estim Average Glucose (70-100) Lactic Acid (0.5-2.2) mmol/L Calcium (8.5-10.3) mg/dL Total Bilirubin (0.2-1.0) mg/dL AST (10-42) IU/L ALT (10-60) IU/L Alkaline Phosphatase (42-121) IU/L Total Protein (6.7-8.2) g/dL Albumin (3.2-5.5) g/dL Globulin (2.1-4.2) g/dL Albumin/Globulin Ratio (1.0-2.2) Lipase (22-51) U/L Urine Color Urine Clarity (CLEAR) Urine pH (5.0-7.5) PH Ur Specific [place] (1.002-1.030) Urine Protein (NEGATIVE) mg/dL Urine Glucose (UA) (NEGATIVE) mg/dL Urine Ketones (NEGATIVE) mg/dL Urine Occult Blood (NEGATIVE) Urine Nitrite (NEGATIVE) Urine Bilirubin (NEGATIVE) Urine Urobilinogen (NORMAL) E.U./dL Ur Leukocyte Esterase (NEGATIVE) Ur Microscopic Review Urine Culture Comments 04/08/18 04/08/18 04/08/18 Range/Units 17:27 16:54 15:16 WBC (4.8-10.8) x10^3/uL RBC (4.70-6.10) 10^6/uL Hgb (14.0-18.0) g/dL Hct (42.0-52.0) % MCV (80.0-94.0) fL MCH (27.0-31.0) pg MCHC (32.0-36.0) g/dL RDW (12.0-15.0) % Plt Count (130-450) 10^3/uL MPV (7.4-11.4) fL Neut # (Auto) (1.5-6.6) 10^3/uL Lymph # (Auto) (1.5-3.5) 10^3/uL [place] # (Auto) (0.0-1.0) 10^3/uL Eos # (Auto) (0.0-0.7) 10^3/uL Baso # (Auto) (0.0-0.1) 10^3/uL Absolute Nucleated RBC x10^3/uL Nucleated RBC % /100WBC Sodium (135-145) mmol/L Potassium (3.5-5.0) mmol/L Chloride (101-111) mmol/L Carbon Dioxide (21-32) mmol/L Anion Gap (6-13) BUN (6-20) mg/dL Creatinine (0.6-1.2) mg/dL Estimated GFR (MDRD) (>89) Glucose (70-100) mg/dL POC Whole Bld Glucose 251 H 260 H 274 H (70 - 100) mg/dL Glycated Hemoglobin (4.6-6.2) % Estim Average Glucose (70-100) Lactic Acid (0.5-2.2) mmol/L Calcium (8.5-10.3) mg/dL Total Bilirubin (0.2-1.0) mg/dL AST (10-42) IU/L ALT (10-60) IU/L Alkaline Phosphatase (42-121) IU/L Total Protein (6.7-8.2) g/dL Albumin (3.2-5.5) g/dL Globulin (2.1-4.2) g/dL Albumin/Globulin Ratio (1.0-2.2) Lipase (22-51) U/L Urine Color Urine Clarity (CLEAR) Urine pH (5.0-7.5) PH Ur Specific [place] (1.002-1.030) Urine Protein (NEGATIVE) mg/dL Urine Glucose (UA) (NEGATIVE) mg/dL Urine Ketones (NEGATIVE) mg/dL Urine Occult Blood (NEGATIVE) Urine Nitrite (NEGATIVE) Urine Bilirubin (NEGATIVE) Urine Urobilinogen (NORMAL) E.U./dL Ur Leukocyte Esterase (NEGATIVE) Ur Microscopic Review Urine Culture Comments 04/08/18 04/08/18 04/08/18 Range/Units 13:23 13:23 13:23 WBC 13.1 H (4.8-10.8) x10^3/uL RBC 4.59 L (4.70-6.10) 10^6/uL Hgb 14.6 (14.0-18.0) g/dL Hct 42.0 (42.0-52.0) % MCV 91.4 (80.0-94.0) fL MCH 31.8 H (27.0-31.0) pg MCHC 34.8 (32.0-36.0) g/dL RDW 12.7 (12.0-15.0) % Plt Count 230 (130-450) 10^3/uL MPV 8.7 (7.4-11.4) fL Neut # (Auto) 10.1 H (1.5-6.6) 10^3/uL Lymph # (Auto) 1.4 L (1.5-3.5) 10^3/uL [place] # (Auto) 1.3 H (0.0-1.0) 10^3/uL Eos # (Auto) 0.1 (0.0-0.7) 10^3/uL Baso # (Auto) 0.1 (0.0-0.1) 10^3/uL Absolute Nucleated RBC 0.00 x10^3/uL Nucleated RBC % 0.0 /100WBC Sodium 133 L (135-145) mmol/L Potassium 4.3 (3.5-5.0) mmol/L Chloride 102 (101-111) mmol/L Carbon Dioxide 22 (21-32) mmol/L Anion Gap 9.0 (6-13) BUN 11 (6-20) mg/dL Creatinine 0.8 (0.6-1.2) mg/dL Estimated GFR (MDRD) 127 (>89) Glucose 408 H (70-100) mg/dL POC Whole Bld Glucose (70 - 100) mg/dL Glycated Hemoglobin (4.6-6.2) % Estim Average Glucose (70-100) Lactic Acid 1.7 (0.5-2.2) mmol/L Calcium 8.8 (8.5-10.3) mg/dL Total Bilirubin 0.6 (0.2-1.0) mg/dL AST 22 (10-42) IU/L ALT 23 (10-60) IU/L Alkaline Phosphatase 67 (42-121) IU/L Total Protein 7.4 (6.7-8.2) g/dL Albumin 4.0 (3.2-5.5) g/dL Globulin 3.4 (2.1-4.2) g/dL Albumin/Globulin Ratio 1.2 (1.0-2.2) Lipase 20 L (22-51) U/L Urine Color Urine Clarity (CLEAR) Urine pH (5.0-7.5) PH Ur Specific [place] (1.002-1.030) Urine Protein (NEGATIVE) mg/dL Urine Glucose (UA) (NEGATIVE) mg/dL Urine Ketones (NEGATIVE) mg/dL Urine Occult Blood (NEGATIVE) Urine Nitrite (NEGATIVE) Urine Bilirubin (NEGATIVE) Urine Urobilinogen (NORMAL) E.U./dL Ur Leukocyte Esterase (NEGATIVE) Ur Microscopic Review Urine Culture Comments 04/08/18 Range/Units 11:11 WBC (4.8-10.8) x10^3/uL RBC (4.70-6.10) 10^6/uL Hgb (14.0-18.0) g/dL Hct (42.0-52.0) % MCV (80.0-94.0) fL MCH (27.0-31.0) pg MCHC (32.0-36.0) g/dL RDW (12.0-15.0) % Plt Count (130-450) 10^3/uL MPV (7.4-11.4) fL Neut # (Auto) (1.5-6.6) 10^3/uL Lymph # (Auto) (1.5-3.5) 10^3/uL [place] # (Auto) (0.0-1.0) 10^3/uL Eos # (Auto) (0.0-0.7) 10^3/uL Baso # (Auto) (0.0-0.1) 10^3/uL Absolute Nucleated RBC x10^3/uL Nucleated RBC % /100WBC Sodium (135-145) mmol/L Potassium (3.5-5.0) mmol/L Chloride (101-111) mmol/L Carbon Dioxide (21-32) mmol/L Anion Gap (6-13) BUN (6-20) mg/dL Creatinine (0.6-1.2) mg/dL Estimated GFR (MDRD) (>89) Glucose (70-100) mg/dL POC Whole Bld Glucose (70 - 100) mg/dL Glycated Hemoglobin (4.6-6.2) % Estim Average Glucose (70-100) Lactic Acid (0.5-2.2) mmol/L Calcium (8.5-10.3) mg/dL Total Bilirubin (0.2-1.0) mg/dL AST (10-42) IU/L ALT (10-60) IU/L Alkaline Phosphatase (42-121) IU/L Total Protein (6.7-8.2) g/dL Albumin (3.2-5.5) g/dL Globulin (2.1-4.2) g/dL Albumin/Globulin Ratio (1.0-2.2) Lipase (22-51) U/L Urine Color YELLOW Urine Clarity CLEAR (CLEAR) Urine pH 5.5 (5.0-7.5) PH Ur Specific [place] 1.010 (1.002-1.030) Urine Protein NEGATIVE (NEGATIVE) mg/dL Urine Glucose (UA) >=1000 H (NEGATIVE) mg/dL Urine Ketones NEGATIVE (NEGATIVE) mg/dL Urine Occult Blood NEGATIVE (NEGATIVE) Urine Nitrite NEGATIVE (NEGATIVE) Urine Bilirubin NEGATIVE (NEGATIVE) Urine Urobilinogen 0.2 (NORMAL) (NORMAL) E.U./dL Ur Leukocyte Esterase NEGATIVE (NEGATIVE) Ur Microscopic Review NOT INDICATED Urine Culture Comments NOT INDICATED - Current Medications Current Medications: Current Medications Generic Name Dose Route Start Last Admin Trade Name Freq PRN Reason Stop Dose Admin Famotidine 20 mg 04/08/18 21:00 04/08/18 21:52 Pepcid PO 20 mg BID KATHERIN Administration Gabapentin 300 mg 04/08/18 21:00 04/08/18 21:52 Neurontin PO 300 mg QPM KATHERIN Administration Piperacillin Sod/Tazobactam 100 mls @ 25 mls/hr 04/09/18 04:00 04/09/18 03:55 Sod 4.5 gm/ Sodium Chloride IV 25 mls/hr Q8H KATHERIN Administration Insulin Glargine 20 unit 04/08/18 21:00 04/08/18 21:53 Lantus Solostar SUBQ 20 unit BID KATHERIN Administration Sodium Chloride 10 ml 04/08/18 17:00 04/09/18 02:16 Normal Saline Flush 0.9% IVP Not Given 0100,0900,1700 KATHERIN - Physical Exam General Appearance: positive: No acute distress Abdomen: positive: Non-tender ABX Reporting Has patient been on IV antibiotics over the past 48 hours?: No Impression/Plan - Problem List Problem List: PO Day #1 s/p I & D rectal abscess; doing well. Rec: advance diet and activity as tolerated; sitz baths; oral analgesics prn. prophylaxis against thrush (pt had in past with antibiotics).
[2018-04-09] MEDS ORDERED: ACETAMINOPHEN 325 MG TABLET PO PRN (08:30)
[2018-04-09] MEDS ORDERED: PROCHLORPERAZINE 10 MG/2 ML VIAL IVP PRN (08:30)
[2018-04-09] MEDS ORDERED: TEMAZEPAM 15 MG CAPSULE PO PRN (08:31)
[2018-04-09] MEDS: HYDROcod/ACETAM 5/325 MG TABLET PO PRN ×3 (08:31→19:23)
[2018-04-09] MEDS: INSULIN GLARGINE 300 UNIT/3 ML PEN SUBQ SCH ×2 (08:32→20:49)
[2018-04-09] MEDS ORDERED: POLYETHYLENE GLYCOL 3350 17 GM PACKET PO SCH (09:00)
[2018-04-09] MEDS ORDERED: SERTRALINE 50 MG TABLET PO SCH (09:00)
[2018-04-09] MEDS ORDERED: LISINOPRIL 5 MG TABLET PO SCH (09:00)
[2018-04-09] MEDS: FAMOTIDINE 20 MG TABLET PO SCH ×2 (09:25→20:19)
[2018-04-09] MEDS: LISINOPRIL 5 MG TABLET PO SCH (09:26)
[2018-04-09] MEDS: SERTRALINE 50 MG TABLET PO SCH (09:26)
[2018-04-09] MEDS: POLYETHYLENE GLYCOL 3350 17 GM PACKET PO SCH (09:26)
[2018-04-09] MEDS: HYDROmorphone 2 MG/ML VIAL IVP PRN (09:33)
[2018-04-09] MEDS: metroNIDAZOLE 500 MG/100 ML 500 MG/100 ML BAG IV SCH ×2 (09:33→16:25)
[2018-04-09] MEDS: ONDANSETRON 4 MG/2 ML VIAL IVP PRN (10:01)
[2018-04-09] MEDS: PIPERACILLIN/TAZOBACTAM 4.5 GM in SODIUM CHLORIDE 0.9% MINIBAG 100 ML IV SCH ×2 (11:14→20:19)
[2018-04-09] MEDS: SACCHAROMYCES BOULARDII 250 MG CAPSULE PO SCH ×2 (11:14→16:25)
[2018-04-09] MEDS: INSULIN ASPART 300 UNIT/3 ML PEN SUBQ SCH ×3 (12:08→20:50)
[2018-04-09] MEDS: NYSTATIN 500000 UNITS/5 ML UDC PO SCH ×3 (13:55→20:19)
--- NOTE | 2018-04-09 13:56 | PROVIDER PROGRESS NOTE ---
Assessment/Plan - Problem List (1) Rectal abscess Assessment/Plan: Surgeon input appreciated. Pt to have Sitz baths, may eat solids, ambulate. Narcotics for pain control. Continue iv antibiotics for 2-3 days then transition to Cipro and Flagyl po for a planned 10 day total course. (2) Uncontrolled diabetes mellitus Assessment/Plan: Ciontinue carb-controlled diet, fingerstick checks and Insulin coverage. No resumption of Insulin pump yet. (3) Nasal sinus congestion Assessment/Plan: Wif and children also have URI symptoms. Will treat symptomatically for a viral sunusitis with Afrin nasal spray decongestant. - Current Meds Current Meds: Current Medications Generic Name Dose Route Start Last Admin Trade Name Freq PRN Reason Stop Dose Admin Hydrocodone Bitart/Acetaminophen 1 tab 04/09/18 07:34 04/09/18 13:53 [place] 5/325 PO 1 tab TID PRN Administration PAIN Famotidine 20 mg 04/09/18 09:00 04/09/18 09:25 Pepcid PO 20 mg BID KATHERIN Administration Hydromorphone HCl 2 mg 04/09/18 07:37 04/09/18 09:33 Dilaudid (Vial) IVP 2 mg Q2H PRN Administration PAIN 8-10 Piperacillin Sod/Tazobactam 100 mls @ 25 mls/hr 04/09/18 12:00 04/09/18 11:14 Sod 4.5 gm/ Sodium Chloride IV 25 mls/hr Q8H KATHERIN Administration Metronidazole 500 mg in 100 mls @ 100 mls/hr 04/09/18 09:00 04/09/18 10:38 Flagyl 500 Mg/100 Ml IV Infused Q8H KATHERIN Infusion Insulin Aspart 3 - 11 unit 04/09/18 12:07 04/09/18 12:08 Novolog SUBQ 7 unit 0800,1200,1700,2100 KATHERIN Administration Protocol Insulin Glargine 20 unit 04/08/18 21:00 04/09/18 08:32 Lantus Solostar SUBQ 20 unit BID KATHERIN Administration Lisinopril 10 mg 04/09/18 09:00 04/09/18 09:26 Zestril PO 10 mg DAILY KATHERIN Administration Nystatin 5 ml 04/09/18 13:00 04/09/18 13:55 Mycostatin PO 5 ml QID KATHERIN Administration Ondansetron HCl 4 mg 04/09/18 08:31 04/09/18 10:01 Zofran Inj IVP 4 mg Q6HR PRN Administration Nausea / Vomiting Polyethylene Glycol 17 gm 04/09/18 09:00 04/09/18 09:26 Miralax PO 17 gm DAILY KATHERIN Administration Saccharomyces Boulardii 250 mg 04/09/18 10:50 04/09/18 11:14 Florastor PO 250 mg BIDWM KATHERIN Administration Sertraline HCl 100 mg 04/09/18 09:00 04/09/18 09:26 Zoloft PO 100 mg DAILY KATHERIN Administration Sodium Chloride 10 ml 04/09/18 09:00 04/09/18 09:27 Normal Saline Flush 0.9% IVP 10 ml 0100,0900,1700 KATHERIN Administration - Lab Result Fish Bone Diagrams: 04/10/18 05:42 04/10/18 05:42 - Additional Planning My Orders: My Active Orders 04/08/18 15:32 IO [RC] IOSHIFT Initiate Bowel Care Protocol [RC] .protocol Initiate Line Care Protocol [RC] .protocol Initiate Line Care Protocol [RC] QSHIFT Initiate Personal Care Protoco [RC] .protocol Oxygen Therapy [RC] Routine Vital Signs [RC] 0800,1600,0000 Code Status [OTHERS] Routine Condition of Patient [OTHERS] Routine DVT Prophylaxis [OTHERS] Routine 04/08/18 15:35 Daily Weight [RC] 0600 IV Insert [RC] .ONCE 04/08/18 15:36 SCDs [RC] QSHIFT Telemetry- [RC] Routine 04/08/18 15:37 General Surgery Consult [CONS] Routine 04/08/18 15:38 Blood Glucose Checks - Eating [RC] 0800,1200,1700,2100 Initiate Hypoglycemia Protocol [RC] .protocol 04/08/18 Dinner Carb-controlled Diet [DIET] 04/09/18 07:34 HYDROcod/ACETAM 5/325 [[place] 5/325] 1 tab PO TID PRN 04/09/18 07:37 HYDROmorphone (VIAL) [Dilaudid (Vial)] 2 mg IVP Q2H PRN 04/09/18 08:30 Acetaminophen [Tylenol] 650 mg PO Q4HR PRN Prochlorperazine Inj [Compazine Inj] 10 mg IVP Q6HR PRN 04/09/18 08:31 Sodium Chloride Flush 0.9% [Normal Saline Flush 0.9%] 10 ml IVP PRN PRN Temazepam [Restoril] 15 mg PO QPM PRN 04/09/18 09:00 Famotidine [Pepcid] 20 mg PO BID Lisinopril [Zestril] 10 mg PO DAILY Polyethylene Glycol 3350 [Miralax] 17 gm PO DAILY Sertraline [Zoloft] 100 mg PO DAILY Sodium Chloride Flush 0.9% [Normal Saline Flush 0.9%] 10 ml IVP 0100,0900,1700 metroNIDAZOLE 500 MG/100 ML [Flagyl 500 mg/100 ml] 500 mg in 100 ml IV Q8H 04/09/18 10:50 Saccharomyces Boulardii [Florastor] 250 mg PO BIDWM 04/09/18 12:07 Insulin Aspart [NovoLOG] 3 - 11 unit SUBQ 0800,1200,1700,2100 04/09/18 13:00 Nystatin [Mycostatin] 5 ml PO QID 04/09/18 21:00 Gabapentin [Neurontin] 300 mg PO QPM 04/10/18 05:00 BMP - BASIC METABOLIC PANEL [CHEM] DAILYLAB CBC - COMP BLD CT W/AUTO DIFF [HEME] DAILYLAB 04/11/18 05:00 BMP - BASIC METABOLIC PANEL [CHEM] DAILYLAB CBC - COMP BLD CT W/AUTO DIFF [HEME] DAILYLAB 04/12/18 05:00 BMP - BASIC METABOLIC PANEL [CHEM] DAILYLAB CBC - COMP BLD CT W/AUTO DIFF [HEME] DAILYLAB Subjective - Subjective Patient Reports: Feeling Better, Nausea, Other (Food tastes "different" and is nauseating him. Has moderate rectal pain in certain sitting positions, no BM yet.) Nursing Reports: Other (Wants nasal decongestant) Objective Vital Signs: Vital Signs - 24 hr 04/08/18 04/08/18 04/08/18 15:17 15:20 18:25 Temperature 36.9 C 36.3 C L Heart Rate 82 106 H Heart Rate [ Brachial] Respiratory 16 16 Rate Blood Pressure 140/78 H 157/87 H Blood Pressure [Left Brachial artery] Blood Pressure [Right Brachial artery] O2 Saturation 98 100 04/08/18 04/08/18 04/08/18 18:35 18:45 19:00 Temperature 36.8 C 36.7 C Heart Rate 106 H 98 Heart Rate [ 83 Brachial] Respiratory 16 16 16 Rate Blood Pressure 150/91 H 153/86 H Blood Pressure 148/70 H [Left Brachial artery] Blood Pressure [Right Brachial artery] O2 Saturation 99 99 99 04/08/18 04/08/18 04/09/18 20:12 22:11 00:00 Temperature 36.6 C 36.6 C 36.6 C Heart Rate Heart Rate [ 78 95 79 Brachial] Respiratory 16 16 18 Rate Blood Pressure Blood Pressure 152/79 H 147/91 H 141/81 H [Left Brachial artery] Blood Pressure [Right Brachial artery] O2 Saturation 97 100 99 04/09/18 04/09/18 04/09/18 04:34 08:00 12:45 Temperature 36.5 C 36.4 C L 36.6 C Heart Rate Heart Rate [ 87 94 83 Brachial] Respiratory 18 18 20 Rate Blood Pressure Blood Pressure [Left Brachial artery] Blood Pressure 140/79 H 149/89 H 168/108 H [Right Brachial artery] O2 Saturation 99 100 99 Oxygen O2 Source Room air I&O (Last 24 Hrs): Intake and Output Totals x24h 04/07/18 04/08/18 04/09/18 23:59 23:59 23:59 Intake Total 921.3 920 Output Total 400 Balance 921.3 520 General: Alert, Oriented x3 HEENT: Mucous membr. moist/pink Neck: Supple, No JVD Neuro: Non Focal Cardiovascular: Regular rate, No murmurs Respiratory: No respiratory distress, Breath sounds nml Abdomen: Normal bowel sounds, Soft, No tenderness Extremities: No edema - Results Results: Laboratory Results WBC 9.1 x10^3/uL (4.8-10.8) 04/09/18 05:35 RBC 4.28 10^6/uL (4.70-6.10) L 04/09/18 05:35 Hgb 13.8 g/dL (14.0-18.0) L 04/09/18 05:35 Hct 40.1 % (42.0-52.0) L 04/09/18 05:35 MCV 93.8 fL (80.0-94.0) 04/09/18 05:35 MCH 32.2 pg (27.0-31.0) H 04/09/18 05:35 MCHC 34.3 g/dL (32.0-36.0) 04/09/18 05:35 RDW 12.9 % (12.0-15.0) 04/09/18 05:35 Plt Count 214 10^3/uL (130-450) 04/09/18 05:35 MPV 8.7 fL (7.4-11.4) 04/09/18 05:35 Neut # (Auto) 6.1 10^3/uL (1.5-6.6) 04/09/18 05:35 Lymph # (Auto) 1.7 10^3/uL (1.5-3.5) 04/09/18 05:35 [place] # (Auto) 1.1 10^3/uL (0.0-1.0) H 04/09/18 05:35 Eos # (Auto) 0.2 10^3/uL (0.0-0.7) 04/09/18 05:35 Baso # (Auto) 0.1 10^3/uL (0.0-0.1) 04/09/18 05:35 Absolute Nucleated RBC 0.01 x10^3/uL 04/09/18 05:35 Nucleated RBC % 0.1 /100WBC 04/09/18 05:35 Sodium 132 mmol/L (135-145) L 04/09/18 05:35 Potassium 3.9 mmol/L (3.5-5.0) 04/09/18 05:35 Chloride 101 mmol/L (101-111) 04/09/18 05:35 Carbon Dioxide 23 mmol/L (21-32) 04/09/18 05:35 Anion Gap 8.0 (6-13) 04/09/18 05:35 BUN 8 mg/dL (6-20) 04/09/18 05:35 Creatinine 0.8 mg/dL (0.6-1.2) 04/09/18 05:35 Estimated GFR (MDRD) 127 (>89) 04/09/18 05:35 Glucose 262 mg/dL (70-100) H 04/09/18 05:35 POC Whole Bld Glucose 256 mg/dL (70 - 100) H 04/09/18 11:40 Glycated Hemoglobin 10.4 % (4.6-6.2) H 04/09/18 05:35 Estim Average Glucose 252 (70-100) H 04/09/18 05:35 Lactic Acid 1.7 mmol/L (0.5-2.2) 04/08/18 13:23 Calcium 8.4 mg/dL (8.5-10.3) L 04/09/18 05:35 Total Bilirubin 0.6 mg/dL (0.2-1.0) 04/08/18 13:23 AST 22 IU/L (10-42) 04/08/18 13:23 ALT 23 IU/L (10-60) 04/08/18 13:23 Alkaline Phosphatase 67 IU/L (42-121) 04/08/18 13:23 Total Protein 7.4 g/dL (6.7-8.2) 04/08/18 13:23 Albumin 4.0 g/dL (3.2-5.5) 04/08/18 13:23 Globulin 3.4 g/dL (2.1-4.2) 04/08/18 13:23 Albumin/Globulin Ratio 1.2 (1.0-2.2) 04/08/18 13:23 Lipase 20 U/L (22-51) L 04/08/18 13:23 Urine Color YELLOW 04/08/18 11:11 Urine Clarity CLEAR (CLEAR) 04/08/18 11:11 Urine pH 5.5 PH (5.0-7.5) 04/08/18 11:11 Ur Specific [place] 1.010 (1.002-1.030) 04/08/18 11:11 Urine Protein NEGATIVE mg/dL (NEGATIVE) 04/08/18 11:11 Urine Glucose (UA) >=1000 mg/dL (NEGATIVE) H 04/08/18 11:11 Urine Ketones NEGATIVE mg/dL (NEGATIVE) 04/08/18 11:11 Urine Occult Blood NEGATIVE (NEGATIVE) 04/08/18 11:11 Urine Nitrite NEGATIVE (NEGATIVE) 04/08/18 11:11 Urine Bilirubin NEGATIVE (NEGATIVE) 04/08/18 11:11 Urine Urobilinogen 0.2 (NORMAL) E.U./dL (NORMAL) 04/08/18 11:11 Ur Leukocyte Esterase NEGATIVE (NEGATIVE) 04/08/18 11:11 Ur Microscopic Review NOT INDICATED 04/08/18 11:11 Urine Culture Comments NOT INDICATED 04/08/18 11:11 - Procedures Procedures: Procedures INSPECTION OF LOWER INTESTINAL TRACT, ENDO (06/21/16) ABX Reporting Has patient been on IV antibiotics over the past 48 hours?: Yes
[2018-04-09] MEDS ORDERED: OXYMETAZOLINE NASAL SPRAY NAS PRN (17:48)
[2018-04-09] MEDS: GABAPENTIN 300 MG CAPSULE PO SCH (20:19)
[2018-04-10] MEDS: metroNIDAZOLE 500 MG/100 ML 500 MG/100 ML BAG IV SCH (01:40)
[2018-04-10] MEDS: SODIUM CHLORIDE FLUSH 0.9% 10 ML SYRINGE IVP SCH ×3 (01:41→17:07)
[2018-04-10] MEDS: PIPERACILLIN/TAZOBACTAM 4.5 GM in SODIUM CHLORIDE 0.9% MINIBAG 100 ML IV SCH (04:02)
[2018-04-10] MEDS: ONDANSETRON 4 MG/2 ML VIAL IVP PRN (04:33)
[2018-04-10] MEDS: SODIUM CHLORIDE FLUSH 0.9% 10 ML SYRINGE IVP PRN ×2 (04:33→05:30)
[2018-04-10] MEDS: HYDROmorphone 2 MG/ML VIAL IVP PRN (04:33)
[2018-04-10 05:53] LABS: BASOPHILS # (AUTO) 0.1 10^3/uL (0.0-0.1); BASOPHILS % (AUTO) 0.7 %; EOSINOPHILS # (AUTO) 0.2 10^3/uL (0.0-0.7); EOSINOPHILS % (AUTO) 2.5 %; HGB - HEMOGLOBIN 14.8 g/dL (14.0-18.0); LYMPHOCYTES # (AUTO) 2.3 10^3/uL (1.5-3.5); LYMPHOCYTES % (AUTO) 31.3 %; MEAN CORPUSCULAR HEMOGLOBIN 32.3 pg (27.0-31.0); MEAN CORPUSCULAR HGB CONC 35.1 g/dL (32.0-36.0); MEAN CORPUSCULAR VOLUME 92.1 fL (80.0-94.0); MEAN PLATELET VOLUME 8.1 fL (7.4-11.4); MONOCYTES # (AUTO) 0.9 10^3/uL (0.0-1.0); MONOCYTES % (AUTO) 11.9 %; NEUTROPHILS # (AUTO) 3.9 10^3/uL (1.5-6.6); NEUTROPHILS % (AUTO) 53.6 %; PLT - PLATELET COUNT 240 10^3/uL (130-450); RED BLOOD COUNT 4.59 10^6/uL (4.70-6.10); RED CELL DISTRIBUTION WIDTH 12.7 % (12.0-15.0); WHITE BLOOD COUNT 7.2 x10^3/uL (4.8-10.8)
[2018-04-10 06:03] LABS: CALCIUM 8.8 mg/dL (8.5-10.3); CREATININE 0.9 mg/dL (0.6-1.2)
[2018-04-10] MEDS: FAMOTIDINE 20 MG TABLET PO SCH ×2 (07:48→21:42)
[2018-04-10] MEDS: SACCHAROMYCES BOULARDII 250 MG CAPSULE PO SCH ×2 (07:48→17:15)
[2018-04-10] MEDS: LISINOPRIL 5 MG TABLET PO SCH (07:48)
[2018-04-10] MEDS: POLYETHYLENE GLYCOL 3350 17 GM PACKET PO SCH ×2 (07:49→11:05)
[2018-04-10] MEDS: NYSTATIN 500000 UNITS/5 ML UDC PO SCH ×4 (07:49→21:50)
[2018-04-10] MEDS: SERTRALINE 50 MG TABLET PO SCH (07:49)
[2018-04-10] MEDS: INSULIN ASPART 300 UNIT/3 ML PEN SUBQ SCH ×4 (07:50→21:46)
[2018-04-10] MEDS: INSULIN GLARGINE 300 UNIT/3 ML PEN SUBQ SCH ×2 (07:52→21:44)
--- NOTE | 2018-04-10 08:47 | PROVIDER PROGRESS NOTE ---
Subjective - General Admit Date: 04/08/18 Procedure Date: 04/08/18 Post Op Days: 2 Procedure Performed: I & D Rectal abscess - Review of Systems Wound/Incisions: positive: No drainage General: positive: No symptoms Gastrointestinal: positive: Nausea, Vomiting, Flatus, Constipation, Other (mild rectal discomfot at this time, worse with passing flatus; no bm since admit). negative: Abdominal pain, Diarrhea, Melena, Hematochezia Genitourinary: positive: No symptoms All Other Systems: positive: Reviewed and negative Objective - Patient Data Reviewed Vital Signs: Yes Vital Signs: Vital Signs x48h Temp Pulse Resp BP Pulse Ox 04/10/18 08:00 37.2 C 84 18 144/81 H 99 Weight: Weight 04/08/18 04/09/18 04/10/18 23:59 23:59 23:59 Weight (kg) 128.5 kg 129.5 kg 130 kg Intake & Output: Intake and Output Totals x24h 04/08/18 04/09/18 04/10/18 23:59 23:59 23:59 Intake Total 921.3 1420 200 Output Total 400 Balance 921.3 1020 200 - Lab Results Lab Results: 04/10/18 05:42 04/10/18 05:42 Other Lab Results: Lab Results x24hrs 04/10/18 04/10/18 04/10/18 Range/Units 07:27 05:42 05:42 WBC 7.2 (4.8-10.8) x10^3/uL RBC 4.59 L (4.70-6.10) 10^6/uL Hgb 14.8 (14.0-18.0) g/dL Hct 42.3 (42.0-52.0) % MCV 92.1 (80.0-94.0) fL MCH 32.3 H (27.0-31.0) pg MCHC 35.1 (32.0-36.0) g/dL RDW 12.7 (12.0-15.0) % Plt Count 240 (130-450) 10^3/uL MPV 8.1 (7.4-11.4) fL Neut # (Auto) 3.9 (1.5-6.6) 10^3/uL Lymph # (Auto) 2.3 (1.5-3.5) 10^3/uL [place] # (Auto) 0.9 (0.0-1.0) 10^3/uL Eos # (Auto) 0.2 (0.0-0.7) 10^3/uL Baso # (Auto) 0.1 (0.0-0.1) 10^3/uL Absolute Nucleated RBC 0.01 x10^3/uL Nucleated RBC % 0.1 /100WBC Sodium 133 L (135-145) mmol/L Potassium 3.5 (3.5-5.0) mmol/L Chloride 103 (101-111) mmol/L Carbon Dioxide 23 (21-32) mmol/L Anion Gap 7.0 (6-13) BUN 7 (6-20) mg/dL Creatinine 0.9 (0.6-1.2) mg/dL Estimated GFR (MDRD) 111 (>89) Glucose 208 H (70-100) mg/dL POC Whole Bld Glucose 219 H (70 - 100) mg/dL Calcium 8.8 (8.5-10.3) mg/dL 04/09/18 04/09/18 04/09/18 Range/Units 20:38 16:33 11:40 WBC (4.8-10.8) x10^3/uL RBC (4.70-6.10) 10^6/uL Hgb (14.0-18.0) g/dL Hct (42.0-52.0) % MCV (80.0-94.0) fL MCH (27.0-31.0) pg MCHC (32.0-36.0) g/dL RDW (12.0-15.0) % Plt Count (130-450) 10^3/uL MPV (7.4-11.4) fL Neut # (Auto) (1.5-6.6) 10^3/uL Lymph # (Auto) (1.5-3.5) 10^3/uL [place] # (Auto) (0.0-1.0) 10^3/uL Eos # (Auto) (0.0-0.7) 10^3/uL Baso # (Auto) (0.0-0.1) 10^3/uL Absolute Nucleated RBC x10^3/uL Nucleated RBC % /100WBC Sodium (135-145) mmol/L Potassium (3.5-5.0) mmol/L Chloride (101-111) mmol/L Carbon Dioxide (21-32) mmol/L Anion Gap (6-13) BUN (6-20) mg/dL Creatinine (0.6-1.2) mg/dL Estimated GFR (MDRD) (>89) Glucose (70-100) mg/dL POC Whole Bld Glucose 252 H 234 H 256 H (70 - 100) mg/dL Calcium (8.5-10.3) mg/dL - Current Medications Current Medications: Current Medications Generic Name Dose Route Start Last Admin Trade Name Freq PRN Reason Stop Dose Admin Acetaminophen 650 mg 04/09/18 08:30 04/09/18 17:18 Tylenol PO 650 mg Q4HR PRN Administration Pain or Fever > 38C (100.4F) Hydrocodone Bitart/Acetaminophen 1 tab 04/09/18 07:34 04/09/18 19:23 [place] 5/325 PO 1 tab TID PRN Administration PAIN Famotidine 20 mg 04/09/18 09:00 04/10/18 07:48 Pepcid PO 20 mg BID KATHERIN Administration Gabapentin 300 mg 04/09/18 21:00 04/09/18 20:19 Neurontin PO 300 mg QPM KATHERIN Administration Hydromorphone HCl 2 mg 04/09/18 07:37 04/10/18 04:33 Dilaudid (Vial) IVP 2 mg Q2H PRN Administration PAIN 8-10 Piperacillin Sod/Tazobactam 100 mls @ 25 mls/hr 04/09/18 12:00 04/10/18 04:02 Sod 4.5 gm/ Sodium Chloride IV 25 mls/hr Q8H KATHERIN Administration Insulin Aspart 3 - 11 unit 04/09/18 12:07 04/10/18 07:50 Novolog SUBQ 5 unit 0800,1200,1700,2100 KATHERIN Administration Protocol Insulin Glargine 20 unit 04/08/18 21:00 04/10/18 07:52 Lantus Solostar SUBQ 20 unit BID KATHERIN Administration Lisinopril 10 mg 04/09/18 09:00 04/10/18 07:48 Zestril PO 10 mg DAILY KATHERIN Administration Nystatin 5 ml 04/09/18 13:00 04/10/18 07:49 Mycostatin PO 5 ml QID KATHERIN Administration Ondansetron HCl 4 mg 04/09/18 08:31 04/10/18 04:33 Zofran Inj IVP 4 mg Q6HR PRN Administration Nausea / Vomiting Oxymetazoline HCl 2 sprays 04/09/18 17:48 04/09/18 20:19 Afrin BERNIE 2 sprays BID PRN Administration Nasal Congestion Polyethylene Glycol 17 gm 04/09/18 09:00 04/10/18 07:49 Miralax PO 17 gm DAILY KATHERIN Administration Prochlorperazine Edisylate 10 mg 04/09/18 08:30 04/10/18 05:29 Compazine Inj IVP 10 mg Q6HR PRN Administration Nausea / Vomiting Saccharomyces Boulardii 250 mg 04/09/18 10:50 04/10/18 07:48 Florastor PO 250 mg BIDWM KATHERIN Administration Sertraline HCl 100 mg 04/09/18 09:00 04/10/18 07:49 Zoloft PO 100 mg DAILY KATHERIN Administration Sodium Chloride 10 ml 04/09/18 09:00 04/10/18 07:49 Normal Saline Flush 0.9% IVP 10 ml 0100,0900,1700 KATHERIN Administration Sodium Chloride 10 ml 04/09/18 08:31 04/10/18 05:30 Normal Saline Flush 0.9% IVP 10 ml PRN PRN Administration NEEDED PER PROVIDER ORDERS Temazepam 15 mg 04/09/18 08:31 04/09/18 20:23 Restoril PO 15 mg QPM PRN Administration Insomnia - Physical Exam General Appearance: positive: No acute distress, Alert Abdomen: positive: Non-tender ABX Reporting Has patient been on IV antibiotics over the past 48 hours?: Yes Impression/Plan - Problem List Problem List: PO Day 2 s/p I & D rectal abscess; clinically doing well. PO N/V likely due to medications (narcotics, antibiotics...) Rec: change to po antibiotics, increase dose of Miralax, hopefully home soon if continues to improve.
[2018-04-10] MEDS: CIPROFLOXACIN 250 MG TABLET PO SCH ×2 (09:37→21:42)
[2018-04-10] MEDS: metroNIDAZOLE 250 MG TABLET PO SCH ×2 (09:37→17:15)
[2018-04-10] MEDS ORDERED: metroNIDAZOLE 500 MG/100 ML 500 MG/100 ML BAG IV SCH (11:00)
--- NOTE | 2018-04-10 17:10 | PROVIDER PROGRESS NOTE ---
Assessment/Plan - Problem List (1) Rectal abscess Assessment/Plan: Switching to po antibiotics today: Cipro and Flagyl. Continue pain meds prn but off Dilaudid (due to nausea) Probable DCh home tomorrow if stable today. (2) Uncontrolled diabetes mellitus Assessment/Plan: Continue carb-controlled diet, fingerstick glu checks and Insulin coverage. (3) Nasal sinus congestion Assessment/Plan: Continue symptomatic nasal decongestant spray, which helped. - Current Meds Current Meds: Current Medications Generic Name Dose Route Start Last Admin Trade Name Freq PRN Reason Stop Dose Admin Acetaminophen 650 mg 04/09/18 08:30 04/09/18 17:18 Tylenol PO 650 mg Q4HR PRN Administration Pain or Fever > 38C (100.4F) Ciprofloxacin 500 mg 04/10/18 09:00 04/10/18 09:37 Cipro PO 500 mg BID KATHERIN Administration Famotidine 20 mg 04/09/18 09:00 04/10/18 07:48 Pepcid PO 20 mg BID KATHERIN Administration Gabapentin 300 mg 04/09/18 21:00 04/09/18 20:19 Neurontin PO 300 mg QPM KATHERIN Administration Insulin Aspart 3 - 11 unit 04/09/18 12:07 04/10/18 17:06 Novolog SUBQ 9 unit 0800,1200,1700,2100 KATHERIN Administration Protocol Insulin Glargine 20 unit 04/08/18 21:00 04/10/18 07:52 Lantus Solostar SUBQ 20 unit BID KATHERIN Administration Lisinopril 10 mg 04/09/18 09:00 04/10/18 07:48 Zestril PO 10 mg DAILY KATHERIN Administration Metronidazole 500 mg 04/10/18 09:00 04/10/18 09:37 Flagyl PO 500 mg Q8H KATHERIN Administration Nystatin 5 ml 04/09/18 13:00 04/10/18 14:19 Mycostatin PO 5 ml QID KATHERIN Administration Oxymetazoline HCl 2 sprays 04/09/18 17:48 04/09/18 20:19 Afrin BERNIE 2 sprays BID PRN Administration Nasal Congestion Polyethylene Glycol 34 gm 04/10/18 09:00 04/10/18 11:05 Miralax PO 17 gm DAILY KATHERIN Administration Prochlorperazine Edisylate 10 mg 04/09/18 08:30 04/10/18 05:29 Compazine Inj IVP 10 mg Q6HR PRN Administration Nausea / Vomiting Saccharomyces Boulardii 250 mg 04/09/18 10:50 04/10/18 07:48 Florastor PO 250 mg BIDWM KATHERIN Administration Sertraline HCl 100 mg 04/09/18 09:00 04/10/18 07:49 Zoloft PO 100 mg DAILY KATHERIN Administration Sodium Chloride 10 ml 04/09/18 09:00 04/10/18 17:07 Normal Saline Flush 0.9% IVP 10 ml 0100,0900,1700 KATHERIN Administration Sodium Chloride 10 ml 04/09/18 08:31 04/10/18 05:30 Normal Saline Flush 0.9% IVP 10 ml PRN PRN Administration NEEDED PER PROVIDER ORDERS Temazepam 15 mg 04/09/18 08:31 04/09/18 20:23 Restoril PO 15 mg QPM PRN Administration Insomnia - Lab Result Fish Bone Diagrams: 04/10/18 05:42 04/10/18 05:42 - Additional Planning My Orders: My Active Orders 04/09/18 17:48 Oxymetazoline [Afrin] 2 sprays BERNIE BID PRN 04/09/18 21:00 Gabapentin [Neurontin] 300 mg PO QPM 04/11/18 05:00 BMP - BASIC METABOLIC PANEL [CHEM] DAILYLAB CBC - COMP BLD CT W/AUTO DIFF [HEME] DAILYLAB 04/12/18 05:00 BMP - BASIC METABOLIC PANEL [CHEM] DAILYLAB CBC - COMP BLD CT W/AUTO DIFF [HEME] DAILYLAB Subjective - Subjective Patient Reports: Feeling Better, Other (Had a BM: firm nodule and streaks of brown-red blood) Objective Vital Signs: Vital Signs - 24 hr 04/10/18 04/10/18 04/10/18 00:00 08:00 15:28 Temperature 36.7 C 37.2 C 36.7 C Heart Rate [ 74 84 84 Brachial] Respiratory 16 18 24 Rate Blood Pressure 114/71 144/81 H 139/80 H [Right Brachial artery] O2 Saturation 99 99 97 Oxygen O2 Source Room air I&O (Last 24 Hrs): Intake and Output Totals x24h 04/08/18 04/09/18 04/10/18 23:59 23:59 23:59 Intake Total 921.3 1420 520 Output Total 400 Balance 921.3 1020 520 General: Alert, Oriented x3 HEENT: Mucous membr. moist/pink Neck: Supple Neuro: Non Focal Cardiovascular: Regular rate, No murmurs Respiratory: No respiratory distress, Breath sounds nml Abdomen: Normal bowel sounds Extremities: No edema - Results Results: Laboratory Results WBC 7.2 x10^3/uL (4.8-10.8) 04/10/18 05:42 RBC 4.59 10^6/uL (4.70-6.10) L 04/10/18 05:42 Hgb 14.8 g/dL (14.0-18.0) 04/10/18 05:42 Hct 42.3 % (42.0-52.0) 04/10/18 05:42 MCV 92.1 fL (80.0-94.0) 04/10/18 05:42 MCH 32.3 pg (27.0-31.0) H 04/10/18 05:42 MCHC 35.1 g/dL (32.0-36.0) 04/10/18 05:42 RDW 12.7 % (12.0-15.0) 04/10/18 05:42 Plt Count 240 10^3/uL (130-450) 04/10/18 05:42 MPV 8.1 fL (7.4-11.4) 04/10/18 05:42 Neut # (Auto) 3.9 10^3/uL (1.5-6.6) 04/10/18 05:42 Lymph # (Auto) 2.3 10^3/uL (1.5-3.5) 04/10/18 05:42 [place] # (Auto) 0.9 10^3/uL (0.0-1.0) 04/10/18 05:42 Eos # (Auto) 0.2 10^3/uL (0.0-0.7) 04/10/18 05:42 Baso # (Auto) 0.1 10^3/uL (0.0-0.1) 04/10/18 05:42 Absolute Nucleated RBC 0.01 x10^3/uL 04/10/18 05:42 Nucleated RBC % 0.1 /100WBC 04/10/18 05:42 Sodium 133 mmol/L (135-145) L 04/10/18 05:42 Potassium 3.5 mmol/L (3.5-5.0) 04/10/18 05:42 Chloride 103 mmol/L (101-111) 04/10/18 05:42 Carbon Dioxide 23 mmol/L (21-32) 04/10/18 05:42 Anion Gap 7.0 (6-13) 04/10/18 05:42 BUN 7 mg/dL (6-20) 04/10/18 05:42 Creatinine 0.9 mg/dL (0.6-1.2) 04/10/18 05:42 Estimated GFR (MDRD) 111 (>89) 04/10/18 05:42 Glucose 208 mg/dL (70-100) H 04/10/18 05:42 POC Whole Bld Glucose 279 mg/dL (70 - 100) H 04/10/18 16:37 Glycated Hemoglobin 10.4 % (4.6-6.2) H 04/09/18 05:35 Estim Average Glucose 252 (70-100) H 04/09/18 05:35 Lactic Acid 1.7 mmol/L (0.5-2.2) 04/08/18 13:23 Calcium 8.8 mg/dL (8.5-10.3) 04/10/18 05:42 Total Bilirubin 0.6 mg/dL (0.2-1.0) 04/08/18 13:23 AST 22 IU/L (10-42) 04/08/18 13:23 ALT 23 IU/L (10-60) 04/08/18 13:23 Alkaline Phosphatase 67 IU/L (42-121) 04/08/18 13:23 Total Protein 7.4 g/dL (6.7-8.2) 04/08/18 13:23 Albumin 4.0 g/dL (3.2-5.5) 04/08/18 13:23 Globulin 3.4 g/dL (2.1-4.2) 04/08/18 13:23 Albumin/Globulin Ratio 1.2 (1.0-2.2) 04/08/18 13:23 Lipase 20 U/L (22-51) L 04/08/18 13:23 Urine Color YELLOW 04/08/18 11:11 Urine Clarity CLEAR (CLEAR) 04/08/18 11:11 Urine pH 5.5 PH (5.0-7.5) 04/08/18 11:11 Ur Specific [place] 1.010 (1.002-1.030) 04/08/18 11:11 Urine Protein NEGATIVE mg/dL (NEGATIVE) 04/08/18 11:11 Urine Glucose (UA) >=1000 mg/dL (NEGATIVE) H 04/08/18 11:11 Urine Ketones NEGATIVE mg/dL (NEGATIVE) 04/08/18 11:11 Urine Occult Blood NEGATIVE (NEGATIVE) 04/08/18 11:11 Urine Nitrite NEGATIVE (NEGATIVE) 04/08/18 11:11 Urine Bilirubin NEGATIVE (NEGATIVE) 04/08/18 11:11 Urine Urobilinogen 0.2 (NORMAL) E.U./dL (NORMAL) 04/08/18 11:11 Ur Leukocyte Esterase NEGATIVE (NEGATIVE) 04/08/18 11:11 Ur Microscopic Review NOT INDICATED 04/08/18 11:11 Urine Culture Comments NOT INDICATED 04/08/18 11:11 - Procedures Procedures: Procedures INSPECTION OF LOWER INTESTINAL TRACT, ENDO (06/21/16)
[2018-04-10] MEDS: HYDROcod/ACETAM 5/325 MG TABLET PO PRN (17:14)
[2018-04-10] MEDS: GABAPENTIN 300 MG CAPSULE PO SCH (21:43)
[2018-04-11] MEDS: metroNIDAZOLE 250 MG TABLET PO SCH ×2 (00:30→08:10)
[2018-04-11] MEDS: HYDROcod/ACETAM 5/325 MG TABLET PO PRN (00:46)
[2018-04-11] MEDS: SODIUM CHLORIDE FLUSH 0.9% 10 ML SYRINGE IVP SCH ×2 (02:11→08:08)
[2018-04-11 06:05] LABS: BASOPHILS # (AUTO) 0.1 10^3/uL (0.0-0.1); EOSINOPHILS # (AUTO) 0.1 10^3/uL (0.0-0.7); EOSINOPHILS % (AUTO) 1.7 %; HGB - HEMOGLOBIN 14.9 g/dL (14.0-18.0); LYMPHOCYTES % (AUTO) 31.5 %; MEAN CORPUSCULAR HEMOGLOBIN 32.2 pg (27.0-31.0); MEAN CORPUSCULAR HGB CONC 35.5 g/dL (32.0-36.0); MEAN CORPUSCULAR VOLUME 90.9 fL (80.0-94.0); MEAN PLATELET VOLUME 7.9 fL (7.4-11.4); MONOCYTES # (AUTO) 0.8 10^3/uL (0.0-1.0); MONOCYTES % (AUTO) 11.9 %; NEUTROPHILS # (AUTO) 3.4 10^3/uL (1.5-6.6); NEUTROPHILS % (AUTO) 53.9 %; PLT - PLATELET COUNT 263 10^3/uL (130-450); RED BLOOD COUNT 4.62 10^6/uL (4.70-6.10); RED CELL DISTRIBUTION WIDTH 12.8 % (12.0-15.0); WHITE BLOOD COUNT 6.4 x10^3/uL (4.8-10.8)
[2018-04-11 06:16] LABS: CALCIUM 8.8 mg/dL (8.5-10.3); CREATININE 0.8 mg/dL (0.6-1.2)
[2018-04-11] MEDS: INSULIN ASPART 300 UNIT/3 ML PEN SUBQ SCH (08:04)
[2018-04-11] MEDS: CIPROFLOXACIN 250 MG TABLET PO SCH (08:06)
[2018-04-11] MEDS: INSULIN GLARGINE 300 UNIT/3 ML PEN SUBQ SCH (08:06)
[2018-04-11] MEDS: LISINOPRIL 5 MG TABLET PO SCH (08:06)
[2018-04-11] MEDS: SACCHAROMYCES BOULARDII 250 MG CAPSULE PO SCH (08:06)
[2018-04-11] MEDS: SERTRALINE 50 MG TABLET PO SCH (08:06)
[2018-04-11] MEDS: FAMOTIDINE 20 MG TABLET PO SCH (08:07)
[2018-04-11] MEDS: NYSTATIN 500000 UNITS/5 ML UDC PO SCH (08:07)
[2018-04-11] MEDS: POLYETHYLENE GLYCOL 3350 17 GM PACKET PO SCH (08:07)
--- NOTE | 2018-04-11 09:09 | PROVIDER PROGRESS NOTE ---
Subjective - General Admit Date: 04/08/18 Procedure Date: 04/08/18 Post Op Days: 3 Procedure Performed: I & D Rectal abscess - Review of Systems Wound/Incisions: positive: No drainage General: positive: Other (mild rectal discomfort) Gastrointestinal: positive: Nausea, Flatus, Other (several loose stools yesterday). negative: Abdominal pain, Melena, Hematochezia Genitourinary: positive: No symptoms Objective - Patient Data Reviewed Vital Signs: Yes Vital Signs: Vital Signs x48h Temp Pulse Resp BP Pulse Ox 04/11/18 08:00 37.1 C 89 18 153/87 H 98 Weight: Weight 04/09/18 04/10/18 04/11/18 23:59 23:59 23:59 Weight (kg) 129.5 kg 130 kg 127.5 kg Intake & Output: Intake and Output Totals x24h 04/09/18 04/10/18 04/11/18 23:59 23:59 23:59 Intake Total 1420 870 250 Output Total 400 50 Balance 1020 870 200 - Lab Results Lab Results: 04/11/18 05:41 04/11/18 05:41 Other Lab Results: Lab Results x24hrs 04/11/18 04/11/18 04/11/18 Range/Units 07:42 05:41 05:41 WBC 6.4 (4.8-10.8) x10^3/uL RBC 4.62 L (4.70-6.10) 10^6/uL Hgb 14.9 (14.0-18.0) g/dL Hct 42.0 (42.0-52.0) % MCV 90.9 (80.0-94.0) fL MCH 32.2 H (27.0-31.0) pg MCHC 35.5 (32.0-36.0) g/dL RDW 12.8 (12.0-15.0) % Plt Count 263 (130-450) 10^3/uL MPV 7.9 (7.4-11.4) fL Neut # (Auto) 3.4 (1.5-6.6) 10^3/uL Lymph # (Auto) 2.0 (1.5-3.5) 10^3/uL [place] # (Auto) 0.8 (0.0-1.0) 10^3/uL Eos # (Auto) 0.1 (0.0-0.7) 10^3/uL Baso # (Auto) 0.1 (0.0-0.1) 10^3/uL Absolute Nucleated RBC 0.01 x10^3/uL Nucleated RBC % 0.1 /100WBC Sodium 132 L (135-145) mmol/L Potassium 3.9 (3.5-5.0) mmol/L Chloride 100 L (101-111) mmol/L Carbon Dioxide 22 (21-32) mmol/L Anion Gap 10.0 (6-13) BUN 9 (6-20) mg/dL Creatinine 0.8 (0.6-1.2) mg/dL Estimated GFR (MDRD) 127 (>89) Glucose 244 H (70-100) mg/dL POC Whole Bld Glucose 247 H (70 - 100) mg/dL Calcium 8.8 (8.5-10.3) mg/dL 04/11/18 04/10/18 04/10/18 Range/Units 00:11 20:44 16:37 WBC (4.8-10.8) x10^3/uL RBC (4.70-6.10) 10^6/uL Hgb (14.0-18.0) g/dL Hct (42.0-52.0) % MCV (80.0-94.0) fL MCH (27.0-31.0) pg MCHC (32.0-36.0) g/dL RDW (12.0-15.0) % Plt Count (130-450) 10^3/uL MPV (7.4-11.4) fL Neut # (Auto) (1.5-6.6) 10^3/uL Lymph # (Auto) (1.5-3.5) 10^3/uL [place] # (Auto) (0.0-1.0) 10^3/uL Eos # (Auto) (0.0-0.7) 10^3/uL Baso # (Auto) (0.0-0.1) 10^3/uL Absolute Nucleated RBC x10^3/uL Nucleated RBC % /100WBC Sodium (135-145) mmol/L Potassium (3.5-5.0) mmol/L Chloride (101-111) mmol/L Carbon Dioxide (21-32) mmol/L Anion Gap (6-13) BUN (6-20) mg/dL Creatinine (0.6-1.2) mg/dL Estimated GFR (MDRD) (>89) Glucose (70-100) mg/dL POC Whole Bld Glucose 259 H 286 H 279 H (70 - 100) mg/dL Calcium (8.5-10.3) mg/dL 04/10/18 Range/Units 11:21 WBC (4.8-10.8) x10^3/uL RBC (4.70-6.10) 10^6/uL Hgb (14.0-18.0) g/dL Hct (42.0-52.0) % MCV (80.0-94.0) fL MCH (27.0-31.0) pg MCHC (32.0-36.0) g/dL RDW (12.0-15.0) % Plt Count (130-450) 10^3/uL MPV (7.4-11.4) fL Neut # (Auto) (1.5-6.6) 10^3/uL Lymph # (Auto) (1.5-3.5) 10^3/uL [place] # (Auto) (0.0-1.0) 10^3/uL Eos # (Auto) (0.0-0.7) 10^3/uL Baso # (Auto) (0.0-0.1) 10^3/uL Absolute Nucleated RBC x10^3/uL Nucleated RBC % /100WBC Sodium (135-145) mmol/L Potassium (3.5-5.0) mmol/L Chloride (101-111) mmol/L Carbon Dioxide (21-32) mmol/L Anion Gap (6-13) BUN (6-20) mg/dL Creatinine (0.6-1.2) mg/dL Estimated GFR (MDRD) (>89) Glucose (70-100) mg/dL POC Whole Bld Glucose 258 H (70 - 100) mg/dL Calcium (8.5-10.3) mg/dL - Current Medications Current Medications: Current Medications Generic Name Dose Route Start Last Admin Trade Name Freq PRN Reason Stop Dose Admin Acetaminophen 650 mg 04/09/18 08:30 04/09/18 17:18 Tylenol PO 650 mg Q4HR PRN Administration Pain or Fever > 38C (100.4F) Hydrocodone Bitart/Acetaminophen 2 tab 04/10/18 08:51 04/11/18 00:46 [place] 5/325 PO 2 tab TID PRN Administration PAIN Ciprofloxacin 500 mg 04/10/18 09:00 04/11/18 08:06 Cipro PO 500 mg BID KATHERIN Administration Famotidine 20 mg 04/09/18 09:00 04/11/18 08:07 Pepcid PO 20 mg BID KATHERIN Administration Gabapentin 300 mg 04/09/18 21:00 04/10/18 21:43 Neurontin PO 300 mg QPM KATHERIN Administration Insulin Aspart 3 - 11 unit 04/09/18 12:07 04/11/18 08:04 Novolog SUBQ 7 unit 0800,1200,1700,2100 KATHERIN Administration Protocol Insulin Glargine 20 unit 04/08/18 21:00 04/11/18 08:06 Lantus Solostar SUBQ 20 unit BID KATHERIN Administration Lisinopril 10 mg 04/09/18 09:00 04/11/18 08:06 Zestril PO 10 mg DAILY KATHERIN Administration Metronidazole 500 mg 04/10/18 09:00 04/11/18 08:10 Flagyl PO 500 mg Q8H KATHERIN Administration Nystatin 5 ml 04/09/18 13:00 04/11/18 08:07 Mycostatin PO 5 ml QID KATHERIN Administration Oxymetazoline HCl 2 sprays 04/09/18 17:48 04/09/18 20:19 Afrin BERNIE 2 sprays BID PRN Administration Nasal Congestion Polyethylene Glycol 34 gm 04/10/18 09:00 04/11/18 08:07 Miralax PO Not Given DAILY KATHERIN Prochlorperazine Edisylate 10 mg 04/09/18 08:30 04/10/18 05:29 Compazine Inj IVP 10 mg Q6HR PRN Administration Nausea / Vomiting Saccharomyces Boulardii 250 mg 04/09/18 10:50 04/11/18 08:06 Florastor PO 250 mg BIDWM KATHERIN Administration Sertraline HCl 100 mg 04/09/18 09:00 04/11/18 08:06 Zoloft PO 100 mg DAILY KATHERIN Administration Sodium Chloride 10 ml 04/09/18 09:00 04/11/18 08:08 Normal Saline Flush 0.9% IVP Not Given 0100,0900,1700 KATHERIN Sodium Chloride 10 ml 04/09/18 08:31 04/10/18 05:30 Normal Saline Flush 0.9% IVP 10 ml PRN PRN Administration NEEDED PER PROVIDER ORDERS Temazepam 15 mg 04/09/18 08:31 04/09/18 20:23 Restoril PO 15 mg QPM PRN Administration Insomnia - Physical Exam Wound/Incisions: positive: No drainage General Appearance: positive: No acute distress, Alert (ambulating well, taking sitz baths feeling much better; still mild nausea) ABX Reporting Has patient been on IV antibiotics over the past 48 hours?: No Impression/Plan - Problem List Problem List: PO Day 3 s/p I & D perirectal abscess. Doing well clinically. Rec: home today; sitz baths, laxatives as needed; outpt f/u my office next week. No further antibiotics.
--- NOTE | 2018-04-11 09:27 | Discharge Plan ---
Discharge Plan Disposition: 01 Home, Self Care Condition: Stable Diet: Diabetic Activity Restrictions: Activity as Tolerated Shower Restrictions: No (add sitz baths three times a day) Driving Restrictions: No Additional Instructions or Follow Up instructions: You were admitted to the hospital because because of rectal pain. We found you to have a rectal abscess. We also have found you to have your diabetes uncontrolled. 6 months ago your A1c was under 7%. Since them you have had a bad summer and your sugars have gone up. Most likely this also contributed to the formation of the rectal abscess. Current A1c is >10%. Treatment consisted of incision and debridement of the abscess. You were on IV antibiotics and then given oral antibiotics. Dr. Solis, the surgeon, does not feel you need any more antibiotics. Please see your primary care provider, Yaritza Obrien, in follow-up in the next week. Dr. Solis would also like to see you in the next week. Dr. Solis does not feel you need any packing or bandages. He just needs you to do sitz bath 3 times a day. Pain medicine is already at home since you have chronic back pain and have a prescription at home. There will be no new medicine. Other than the sitz bath, and keeping strict control of your glucose, there are no new instructions. If you have any fever, increased rectal pain, continued lack of control with your diabetes, please call Yaritza Obrien to be seen as soon as possible. No Smoking: If you smoke, Please STOP! Call for help. Follow-up with: Yaritza Obrien PA [Primary Care Provider] -
[2018-04-11 10:19] VITALS: BP 152/80
--- NOTE | 2018-04-11 10:40 | DISCHARGE SUMMARY ---
"Discharge Summary Admit Date: 04/08/18 Discharge Date: 04/11/18 Discharging Provider: Mindy Munoz MD Primary Care Provider: AIRAM Menjivar Code Status: Attempt Resuscitation Condition at Discharge: Stable Discharge Disposition: 01 Home, Self Care - DIAGNOSES Discharge Diagnoses with Status of Each Condition: 1. Rectal abscess, intramural, left lateral wall 2. Type 2 diabetes mellitus, with complications of retinopathy, neuropathy, on long-term use of insulin, uncontrolled with hyperglycemia 3. Chronic back pain secondary to degenerative disc disease 4. Hypertension 5. Dyslipidemia 6. Morbid obesity 7. Nasal congestion - HPI History of Present Illness: He is a pleasant 43-year-old male with a past medical history of poorly controlled diabetes mellitus since the age of 22. He is treated as a type II but may be late onset type I. Complications include neuropathy, diabetic foot, diabetic foot infection, and retinopathy. He is last A1c was over 9% because his been a rough summer. Prior to that his A1c was 6%. He often has low back pain radiating to his left side, lower extremities, and left testicle. He developed back pain a few days ago and was thought it was the same pain he a lways had. The pain radiated to his testicle on the left side and then subsequently started to localize more into the deep area of his left buttock. He was seen in the ER April 07 and he was diagnosed with epididymitis and started on Levaquin. Discharge from the ED. Pain continued to get worse and he came back April 08. Ultrasound of testes showed no acute abnormality. CT scan of the abdomen and pelvis was done and he had a new intramural rectal abscess. White cell count was 13.1. Glucose 408. Lactic creatinine was stable at 0.8. He was admitted to the hospital for treatment of his rectal abscess, and control of his severely elevated glucose. Acid 1.7. - CONSULTS | PROCEDURES Consultations: General surgery, Dr. Kenn Solis Procedures: 1. Incision and debridement perirectal abscess April 08, [address] of abdomen and pelvis showing a nodular density in the left lower lobe, right intramural abscess in the left lateral wall of the rectum at 23 x 9 x 21 mm. 2. 3 scrotal ultrasound, left testicle, without any acute abnormality of the testicle, scrotum and stable right testicular calcifications - HOSPITAL COURSE Hospital Course: The patient did not have a fever during his stay. White cell count was elevated at 13.1 on admission and was 6.4 by the time of discharge. He was initially on IV antibiotics accompanying his incision and debridement. Those were initially Levaquin and Flagyl IV. He was then changed to Cipro and Flagyl p.o. On the day of discharge Dr. Solis felt that the patient no longer needed antibiotics. The site of infection was taking care of and not needing further treatment. He is requesting the patient do sitz baths up to 3 times a day. Continue to take his usual pain medicines that he has at home. Make sure he takes a stool softener so that he does not get constipated. Blood pressure was mildly elevated during his stay. He was 140-153 systolic. Diastolic was 79-87. At home he is on lisinopril 10 mg a day. I would recommend that the patient be increased to 20 mg a day and be followed up by his primary care provider for a goal of close to 120/70. A1c was 10.4%. The patient explained that his A1c a week ago was over 9%. 6 months ago he was 6%. He said he had a very stressful summer with regards to personal situation and work. He knows what to do to get back on track and to control his sugars. He understands the link between elevated glucose and complications. He does not feel the need to do diabetic education classes. He has chronic back pain. That was well controlled during his stay. There is no increase in the use of medications for that. The left lower quadrant and left testicular pain has resolved. He will be resumed on his usual pain medicines at home. He did use flonase during his stay here for nasal congestion and may need to do it once he gets home and use OTC. Nausea and loose stools from antibiotics also occurred but it is hoped that will resolved since he is not being sent home on abx. He strongly encouraged to diet, exercise and lose at least 10% of his body weight. He is currently 6 foot tall and weighs 127.5 kg. - ALLERGIES Allergies/Adverse Reactions: Allergies Allergy/AdvReac Type Severity Reaction Status Date / Time azithromycin AdvReac Nausea Verified 04/08/18 11:09 - MEDICATIONS Home Medications: Ambulatory Orders Medication Instructions Recorded Confirmed HYDROcod/ACETAM 5/325 [[place] 5/325] 1 each PO TID PRN 08/09/13 04/08/18 Insulin Lispro [Humalog] 72 unit [id number] DAILY 08/09/13 04/08/18 Aspirin [Aspir 81] 81 mg PO DAILY 12/12/13 04/08/18 Ergocalciferol [Vitamin D2] 50,000 units PO TH@0900 04/08/18 04/08/18 Gabapentin 300 mg PO QPM 04/08/18 04/08/18 Lisinopril 10 mg PO DAILY 04/08/18 04/08/18 Sertraline HCl 100 mg PO DAILY 04/08/18 04/08/18 - PHYSICAL EXAM AT DISCHARGE General Appearance: positive: No acute distress, Alert, Other (Morbidly obese pleasant black male) Eyes Bilateral: positive: PERRL, EOMI ENT: positive: Pharynx nml Neck: positive: No JVD. negative: Stiff neck, Carotid bruit Respiratory: positive: Chest non-tender. negative: Wheezes, Rales, Rhonchi Cardiovascular: positive: Regular rate & rhythm. negative: Systolic murmur, Gallop/S4, Friction rub Peripheral Pulses: positive: 0 Abdomen: positive: Non-tender, No organomegaly, Nml bowel sounds, No distention, Other (Large abdominal pannus) Rectal: positive: Tenderness Extremities: positive: Full ROM, Nml appearance Neurologic/Psychiatric: positive: Oriented x3, CN's nml (2-12), Motor nml, Mood/affect nml, Sensory loss. negative: Sensation nml, Facial droop, Slurred/abnml speech Reflexes: Bicep (R): 1+, Bicep (L): 1+, Knee (R): 1+, Knee (L): 1+, Ankle (R): 0, Ankle (L): 0 Babinski Reflex: Right: Down, Left: Down - LABS Result Diagrams: 04/11/18 05:41 04/11/18 05:41 - TIME SPENT Time Spent in Discharge (Minutes): 35"
== END 2018-04-11 10:56 | disposition home or self-care (01) | DRG 345 ==
LOC: ED 10:49 → MS2 15:32 → UNDOADMIN 15:32 → SDS 17:20 → MS2 17:21
PROVIDERS: ADMIT Internal Medicine; ATTEND Specialist
PROC: 0D9P8ZZ Drainage of Rectum, Via Natural or Artificial Opening Endoscopic (ICD-10-PCS; principal; 2018-04-08 07:00)
DX: K61.1 Rectal abscess (principal); Z68.41 Body mass index [BMI] 40.0-44.9, adult; R11.2 Nausea with vomiting, unspecified; T40.2X5A Adverse effect of other opioids, initial encounter; T36.95XA Adverse effect of unspecified systemic antibiotic, initial encounter; Y92.230 Patient room in hospital as the place of occurrence of the external cause; E11.65 Type 2 diabetes mellitus with hyperglycemia; E66.01 Morbid (severe) obesity due to excess calories; E11.319 Type 2 diabetes mellitus with unspecified diabetic retinopathy without macular edema; E11.40 Type 2 diabetes mellitus with diabetic neuropathy, unspecified; M54.5 Low back pain; G89.29 Other chronic pain; I10 Essential (primary) hypertension; E78.5 Hyperlipidemia, unspecified; R09.81 Nasal congestion; K21.9 Gastro-esophageal reflux disease without esophagitis; Z96.41 Presence of insulin pump (external) (internal); Z79.4 Long term (current) use of insulin; Z79.899 Other long term (current) drug therapy; Z63.79 Other stressful life events affecting family and household; Z79.891 Long term (current) use of opiate analgesic; Z79.82 Long term (current) use of aspirin; Z87.438 Personal history of other diseases of male genital organs; Z87.891 Personal history of nicotine dependence
CPT/HCPCS: 36415; 74177; 76870; 80048; 80053; 81001; 81003; 83036; 83605; 83690; 85025; 87086; 93975; 96374; 96375; 99284; 99285

== ENCOUNTER 2018-04-15 22:26 | Observation (INO) | payer OTHER ==
--- NOTE | 2018-04-15 22:55 | ED Physician Documentation ---
PD HPI GI BLEED - Stated complaint Stated Complaint: MALE - Chief complaint Chief Complaint: Abd Pain - History obtained from History obtained from: Patient, Family - History of Present Illness Timing - onset: Today Timing - duration: Hours Timing - details: Abrupt onset, Still present Associated symptoms: BRBPR Contributing factors: Other (armand-rectal abscess I&D one week ago.) Improved by: Laying still Similar symptoms before: Has not had sx before Recently seen: Surgery - Additional information Additional information: 43-year-old male who developed a perirectal abscess required incision and drainage here in the hospital 1 week ago was doing well improving until this evening when he went to have a bowel movement and passed blood. He has subsequently passed a fair amount of blood 6 times. He does save the last bowel movement in the hat in the bathroom and there is more than 300 mL's of bright red blood in the hat. Review of Systems Constitutional: denies: Fever, Chills Nose: denies: Congestion Throat: denies: Sore throat Respiratory: denies: Dyspnea GI: reports: Bloody / black stool. denies: Abdominal Pain, Nausea, Vomiting : denies: Dysuria, Frequency Musculoskeletal: denies: Neck pain, Back pain, Extremity pain PD PAST MEDICAL HISTORY - Past Medical History Past Medical History: No Cardiovascular: Hypertension Respiratory: None Neuro: None Endocrine/Autoimmune: Type 2 diabetes, Other GI: GERD : Other HEENT: None Psych: Anxiety Musculoskeletal: Chronic back pain, Other Derm: None - Past Surgical History Past Surgical History: No General: Bowel surgery Ortho: Other HEENT: Tonsil/Adenoidectomy - Present Medications Home Medications: Ambulatory Orders Medication Instructions Recorded Confirmed HYDROcod/ACETAM 5/325 [[place] 5/325] 1 each PO TID PRN 08/09/13 04/08/18 Insulin Lispro [Humalog] 72 unit [id number] DAILY 08/09/13 04/08/18 Aspirin [Aspir 81] 81 mg PO DAILY 12/12/13 04/08/18 Ergocalciferol [Vitamin D2] 50,000 units PO TH@0900 04/08/18 04/08/18 Gabapentin 300 mg PO QPM 04/08/18 04/08/18 Lisinopril 10 mg PO DAILY 04/08/18 04/08/18 Sertraline HCl 100 mg PO DAILY 04/08/18 04/08/18 - Allergies Allergies/Adverse Reactions: Allergies Allergy/AdvReac Type Severity Reaction Status Date / Time azithromycin AdvReac Nausea Verified 04/15/18 22:34 - Social History Does the pt smoke?: No Smoking Status: Never smoker Does the pt drink ETOH?: Yes Does the pt have substance abuse?: Yes Substance Use and Type: Marijuana - Immunizations Immunizations are current?: Yes - POLST Patient has POLST: No PD ED PE NORMAL - Vitals Vital signs reviewed: Yes (normal ) - General General: Alert and oriented X 3, No acute distress, Well developed/nourished - HEENT HEENT: Atraumatic, PERRL, EOMI - Respiratory Respiratory: No respiratory distress - Rectal Rectal: Other (There are small external hemmohroids that are not bleeding. There are soft internal hemmorhoids and I am not able to palpate a deficit in the rectum from the prior surgery and the tip of the glove is covered in bright red blood. ) - Derm Derm: Normal color, Warm and dry, No rash - Extremities Extremities: No deformity, No edema - Neuro Neuro: Alert and oriented X 3, material handler 2-12 intact, No motor deficit, No sensory deficit, Normal speech Eye Opening: Spontaneous Motor: Obeys Commands Verbal: Oriented GCS Score: 15 - Psych Psych: Normal mood, Normal affect Results - Vitals Vitals: Vital Signs - 24 hr 04/15/18 04/16/18 22:29 00:17 Temperature 36.2 C L Heart Rate 96 104 H Respiratory 16 20 Rate Blood Pressure 124/80 133/85 H O2 Saturation 100 100 Oxygen O2 Source Room air - Labs Labs: Laboratory Tests 04/15/18 04/15/18 04/15/18 23:55 23:55 23:55 WBC 9.1 RBC 4.02 L Hgb 13.3 L Hct 37.4 L MCV 93.0 MCH 33.2 H MCHC 35.7 RDW 12.6 Plt Count 260 MPV 7.8 Neut # (Auto) 5.3 Lymph # (Auto) 2.5 [place] # (Auto) 0.8 Eos # (Auto) 0.3 Baso # (Auto) 0.1 Absolute Nucleated RBC 0.01 Nucleated RBC % 0.1 Sodium 136 Potassium 3.5 Chloride 104 Carbon Dioxide 24 Anion Gap 8.0 BUN 9 Creatinine 0.8 Estimated GFR (MDRD) 127 Glucose 251 H Calcium 8.5 Total Bilirubin 0.4 AST 20 ALT 23 Alkaline Phosphatase 71 Troponin I < 0.04 Total Protein 6.4 L Albumin 3.6 Globulin 2.8 Albumin/Globulin Ratio 1.3 Lipase 26 Blood Type Antibody Screen 04/15/18 23:55 WBC RBC Hgb Hct MCV MCH MCHC RDW Plt Count MPV Neut # (Auto) Lymph # (Auto) [place] # (Auto) Eos # (Auto) Baso # (Auto) Absolute Nucleated RBC Nucleated RBC % Sodium Potassium Chloride Carbon Dioxide Anion Gap BUN Creatinine Estimated GFR (MDRD) Glucose Calcium Total Bilirubin AST ALT Alkaline Phosphatase Troponin I Total Protein Albumin Globulin Albumin/Globulin Ratio Lipase Blood Type O POSITIVE Antibody Screen NEGATIVE PD MEDICAL DECISION MAKING - ED course Complexity details: reviewed old records, reviewed results, re-evaluated patient, considered differential, d/w patient, d/w family ED course: 43-year-old male with a recent perirectal abscess incised and drained here at the hospital 1 week ago has developed acute bleeding. He has a significant amount of hemorrhage bleeding over 750 mL's of blood in the emergency department. He has had a drop in his hematocrit of about [address] Robbins is consulted in the case and recommends admission in the hospital to the hospitalist service for a bowel prep to be able to ascertain the area of bleeding. The patient is administered tranexamic acid both bolus and a in an infusion. A second line is placed and blood is ordered [address] Carmona is consulted in the case and will order the prep and repeat blood counts. Departure - Departure Disposition: ED Place in Observation Clinical Impression: Rectal bleeding
[2018-04-16 00:13] LABS: BASOPHILS # (AUTO) 0.1 10^3/uL (0.0-0.1); BASOPHILS % (AUTO) 0.9 %; EOSINOPHILS # (AUTO) 0.3 10^3/uL (0.0-0.7); EOSINOPHILS % (AUTO) 3.7 %; HGB - HEMOGLOBIN 13.3 g/dL (14.0-18.0); LYMPHOCYTES # (AUTO) 2.5 10^3/uL (1.5-3.5); LYMPHOCYTES % (AUTO) 27.8 %; MEAN CORPUSCULAR HEMOGLOBIN 33.2 pg (27.0-31.0); MEAN CORPUSCULAR HGB CONC 35.7 g/dL (32.0-36.0); MEAN PLATELET VOLUME 7.8 fL (7.4-11.4); MONOCYTES # (AUTO) 0.8 10^3/uL (0.0-1.0); MONOCYTES % (AUTO) 9.2 %; NEUTROPHILS # (AUTO) 5.3 10^3/uL (1.5-6.6); NEUTROPHILS % (AUTO) 58.4 %; PLT - PLATELET COUNT 260 10^3/uL (130-450); RED BLOOD COUNT 4.02 10^6/uL (4.70-6.10); RED CELL DISTRIBUTION WIDTH 12.6 % (12.0-15.0); WHITE BLOOD COUNT 9.1 x10^3/uL (4.8-10.8)
[2018-04-16 00:24] LABS: ALBUMIN 3.6 g/dL (3.2-5.5); ALBUMIN/GLOBULIN RATIO 1.3 (1.0-2.2); BILIRUBIN,TOTAL 0.4 mg/dL (0.2-1.0); CALCIUM 8.5 mg/dL (8.5-10.3); CREATININE 0.8 mg/dL (0.6-1.2); TOTAL PROTEIN 6.4 g/dL (6.7-8.2)
[2018-04-16] MEDS ORDERED: TRANEXAMIC ACID 1,000 MG in SODIUM CHLORIDE 0.9% 500 ML IV ONE (00:30)
[2018-04-16] MEDS ORDERED: TRANEXAMIC ACID 1,000 MG in SODIUM CHLORIDE 0.9% 100ML 100 ML IV STA (00:35)
[2018-04-16] MEDS ORDERED: ZOLPIDEM 5 MG TABLET PO PRN (00:57)
[2018-04-16] MEDS ORDERED: ACETAMINOPHEN 325 MG TABLET PO PRN (00:57)
[2018-04-16] MEDS ORDERED: HYDROcod/ACETAM 5/325 MG TABLET PO PRN (00:57)
[2018-04-16] MEDS ORDERED: PROCHLORPERAZINE 10 MG/2 ML VIAL IVP PRN (00:57)
[2018-04-16] MEDS ORDERED: ONDANSETRON 4 MG/2 ML VIAL IVP PRN (00:57)
[2018-04-16] MEDS ORDERED: MORPHINE 2 MG/ML CARPUJECT IVP PRN (00:57)
[2018-04-16] MEDS ORDERED: ONDANSETRON 4 MG/2 ML VIAL IVP STA (01:00)
[2018-04-16] MEDS ORDERED: TEMAZEPAM 15 MG CAPSULE PO PRN (01:30)
--- NOTE | 2018-04-16 01:35 | HISTORY & PHYSICAL EXAMINATION ---
Chief Complaint - Chief Complaint Chief Complaint: Rectal bleeding History of Present Illness - Admitted From Admitted From:: Emergency department coming from home - History Obtained From Records Reviewed: Current ER visit notes as well as previous hospital stay History obtained from: Patient and Dr. Max, ED physician Exam Limitations: None - History of Present Illness HPI Comment/Other: This is a pleasant 43-year-old who has a history of type 2 diabetes, insulin-dependent, hypertension who recently had a incision and drainage of a perirectal abscess last week who presents to the emergency room after presenting with bright red blood per rectum at approximately 8:00 this evening without any known provocation. Patient had the rectal abscess incision and drainage in the hospital last week and as far as he can tell had no postoperative complications and had routine healing and was compliant with his instructions to continue to use MiraLAX and avoid constipation and straining. He does admit that throughout the week there may have been times where he was pushing a little bit however today his bowel movements have been soft and he was not straining at all at the time that he noticed the rectal bleeding. There was no pain, he had only slight dizziness and lightheadedness, but no shortness of breath, chest pain, or significant weakness. He presented to the emergency room where initial labs show a slight drop in his hemoglobin and hematocrit from the previous levels last week, and normal heart rate and blood pressure. Dr. Ernst, general surgery, was consulted and he recommended admitting the patient for probable colonoscopy tomorrow. History - Past Medical History Cardiovascular: reports: Hypertension Respiratory: reports: None Neuro: reports: None Endocrine/Autoimmune: reports: Type 2 diabetes, Other GI: reports: GERD, Other (Perirectal abscess) : reports: Other HEENT: reports: None Psych: reports: Anxiety Musculoskeletal: reports: Chronic back pain, Other Derm: reports: None MRSA Hx?: No - Past Surgical History General: reports: Bowel surgery Ortho: reports: Other HEENT: reports: Tonsil/Adenoidectomy - Substance History Use: Uses substance without health or social issues: Alcohol (12 pack beer/week), Cannabis (daily) - POLST Patient has POLST: No Meds/Allgy - Home Medications Home Medications: Ambulatory Orders Medication Instructions Recorded Confirmed HYDROcod/ACETAM 5/325 [[place] 5/325] 1 each PO TID PRN 08/09/13 04/08/18 Insulin Lispro [Humalog] 72 unit [id number] DAILY 08/09/13 04/08/18 Aspirin [Aspir 81] 81 mg PO DAILY 12/12/13 04/08/18 Ergocalciferol [Vitamin D2] 50,000 units PO TH@0900 04/08/18 04/08/18 Gabapentin 300 mg PO QPM 04/08/18 04/08/18 Lisinopril 10 mg PO DAILY 04/08/18 04/08/18 Sertraline HCl 100 mg PO DAILY 04/08/18 04/08/18 - Allergies Allergies/Adverse Reactions: Allergies Allergy/AdvReac Type Severity Reaction Status Date / Time azithromycin AdvReac Nausea Verified 04/15/18 22:34 Review of Systems - Constitutional Constitutional: denies: Fatigue, Weakness - Cardiovascular Cariovascular: denies: Chest pain - Respiratory Respiratory: denies: SOB at rest - Gastrointestinal Gastrointestinal: reports: Change in bowel habits, Rectal bleeding. denies: Abdominal pain, Constipation, Diarrhea, Black stools, Nausea, Vomiting, Bile emesis, Juan David blood emesis - Genitourinary Genitourinary: denies: Dysuria - Musculoskeletal Musculoskeletal: reports: Back pain - Neurological Neurological: reports: Dizziness. denies: General weakness, Focal weakness - Hematologic/Lymphatic Hematologic/Lymphatic: denies: Blood clots Prior Level of Functionality: Independent Exam - Vital Signs Reviewed Vital Signs: Yes Vital Signs: Vital Signs x48h Temp Pulse Resp BP Pulse Ox 04/16/18 01:32 114 H 16 120/87 H 100 04/16/18 00:17 104 H 20 133/85 H 100 04/15/18 22:29 36.2 C L 96 16 124/80 100 - Physical Exam General Appearance: positive: No acute distress Eyes Bilateral: positive: Normal inspection ENT: positive: ENT inspection nml Neck: positive: Nml inspection Respiratory: positive: Chest non-tender, No respiratory distress, Breath sounds nml Cardiovascular: positive: Regular rate & rhythm, No murmur, No gallop Peripheral Pulses: positive: 2+ Abdomen: positive: Non-tender Rectal: positive: Other (Deferred given that patient just had a rectal exam by ED physician with no significant findings) Skin: positive: Color nml Extremities: positive: Non-tender Neurologic/Psychiatric: positive: Oriented x3, CN's nml (2-12), Motor nml, Sensation nml, Mood/affect nml Sepsis Event Note (H) - Evaluation Current Stage of Sepsis: Ruled out Conclusion/Plan - Problem List (1) Rectal bleeding Conclusion/Plan: Bright red blood per rectum likely related to recent abscess. Will monitor closely for worsening signs of hemodynamic instability and follow-up hemoglobin and hematocrit labs in the morning. In the meantime, bowel prep for colonoscopy and n.p.o. Dr Nieves notifed by Dr Max, who plans to scope pt in the am. If not bleeding found, may need transfer to facility with IR for possible ablation procedure. (2) Diabetes mellitus with hyperglycemia Conclusion/Plan: Blood sugar is elevated. We will continue his insulin pump and an insulin sliding scale. Qualifiers: Diabetes mellitus type: type 2 Diabetes mellitus prison insulin use: with long term care administrator use Qualified Code(s): E11.65 - Type 2 diabetes mellitus with h yperglycemia; Z79.4 - termite helper (current) use of insulin; Z79.4 - jail (current) use of insulin; Z79.4 - jail (current) use of insulin; Z79.4 - termite helper (current) use of insulin - Lab Results Lab results reviewed: Yes Fish Bones: 04/15/18 23:55 04/15/18 23:55 Core Measures - Anticipated LOS I expect patient to be DC'd or transferred within 96 hours.: Yes - DVT/VTE - Prophylaxis VTE/DVT Device ordered at admit?: Yes
[2018-04-16] MEDS: INSULIN REGULAR HUMAN 100 UNIT/1 ML 10 ML MDV SUBQ SCH ×4 (02:26→18:20)
--- NOTE | 2018-04-16 02:37 | CONSULTATION NOTE ---
Referring Provider Name of Referring Provider:: Dr. Sin Max Consult Date: 04/16/18 Chief Complaint - Chief Complaint Chief Complaint: Rectal bleeding History of Present Illness - Admitted From Admitted From:: ED - History Obtained From Records Reviewed: Yes History obtained from: Patient, Dr. Max, and chart. Exam Limitations: None - History of Present Illness HPI Comment/Other: I am called on consultation to evaluate this pleasant 43 year old male for rectal bleeding. Importantly, I performed a colonoscopy on him in June 2016 that revealed an anal fissure and some internal hemorrhoids. More recently, Dr. Kenn Solis performed a I&D of a rectal abscess. This was drained approximately 1 week ago transanally. The bleeding occurred without any pain and was described as quite severe. The patient has not had any fevers that he knows. History - Past Medical History Cardiovascular: reports: Hypertension Respiratory: reports: None Neuro: reports: None Endocrine/Autoimmune: reports: Type 2 diabetes, Other GI: reports: GERD, Other : reports: Other HEENT: reports: None Psych: reports: Anxiety Musculoskeletal: reports: Chronic back pain, Other Derm: reports: None MRSA Hx?: No - Past Surgical History General: reports: Bowel surgery Ortho: reports: Other HEENT: reports: Tonsil/Adenoidectomy - Substance History Use: Uses substance without health or social issues: Alcohol (12 pack beer/week), Cannabis (daily) - POLST Patient has POLST: No Meds/Allgy - Home Medications Home Medications: Ambulatory Orders Medication Instructions Recorded Confirmed HYDROcod/ACETAM 5/325 [[place] 5/325] 1 each PO TID PRN 08/09/13 04/16/18 Insulin Lispro [Humalog] 72 unit [id number] DAILY 08/09/13 04/16/18 Aspirin [Aspir 81] 81 mg PO DAILY 12/12/13 04/16/18 Ergocalciferol [Vitamin D2] 50,000 units PO TH@0900 04/08/18 04/16/18 Gabapentin 300 mg PO QPM 04/08/18 04/16/18 Lisinopril 10 mg PO DAILY 04/08/18 04/16/18 Sertraline HCl 100 mg PO DAILY 04/08/18 04/16/18 - Allergies Allergies/Adverse Reactions: Allergies Allergy/AdvReac Type Severity Reaction Status Date / Time azithromycin AdvReac Nausea Verified 04/15/18 22:34 Review of Systems - Constitutional Constitutional: reports: Other (Morbid obesity) - Gastrointestinal Gastrointestinal: reports: Other (GERD) Exam - Vital Signs Reviewed Vital Signs: Yes Vital Signs: Vital Signs x48h Temp Pulse Resp BP Pulse Ox 04/16/18 01:32 114 H 16 120/87 H 100 04/16/18 00:17 104 H 20 133/85 H 100 04/15/18 22:29 36.2 C L 96 16 124/80 100 - Physical Exam General Appearance: positive: Mild distress (Feeling cold.) Eyes Bilateral: positive: No lid inflammation, Conjunctivae nml, No scleral icterus ENT: positive: No signs of dehydration Neck: positive: Trachea midline Respiratory: positive: Chest non-tender, Breath sounds nml Cardiovascular: positive: Regular rate & rhythm Abdomen: positive: Nml bowel sounds, No distention Skin: positive: Color nml Extremities: positive: Non-tender, Nml appearance Neurologic/Psychiatric: positive: Oriented x3 Conclusion/Plan - Diagnosis Diagnosis: Rectal bleeding - Plan Plan: Colonoscopy with possible biopsies and/or polypectomies. Indications, procedure, alternatives (such as barium enema, Cologuard and even no procedure at all) and risks including but not limited to perforation requiring operative repair, bleeding with its risks, and were fully explained to him. He has had just performed a colonoscopy on him in June 2016 I asked him whether or not he wanted me to draw the pictures again and he declined. Conscious sedation was discussed at length with him as were its risks including but not limited to loss of airway, aspiration, respiratory depression, and not enough relief of pain and anxiety and he indicated that he wished to have conscious sedation for his procedure. I explained that MAC anesthesia is associated with a higher incidence of colon perforation. Review of his history does not reveal any significant systemic disease that would contraindicate use of conscious sedation or MAC anesthesia. All questions were fully answered. Verbal and written consent was obtained. The patient in preparation for his colonoscopy will be n.p.o. and his colon will be mechanically prepped. As the patient was quite cold, I obtained some warm blankets and "tucked him in." 45 minutes of [id number] time spent with the patient, the majority of which w as spent in discussion, coordination of care, and completion of the requisite paperwork - Lab Results Lab results reviewed: Yes Fish Bones: 04/17/18 00:19 04/15/18 23:55 Other Lab Results: Notably he has had a significant drop in his hemoglobin and hematocrit.
[2018-04-16] MEDS: SODIUM CHLORIDE 0.9% 1,000 ML IV SCH ×3 (02:40→21:26)
[2018-04-16] MEDS: SODIUM CHLORIDE FLUSH 0.9% 10 ML SYRINGE IVP SCH ×3 (02:40→15:53)
[2018-04-16] MEDS ORDERED: SODIUM/POTASSIUM/MAG SULFATES 354 ML PREP KIT PO SCH (03:00)
[2018-04-16] MEDS ORDERED: WITCH HAZEL/GLYCERIN 1 EACH MED..PAD TOP PRN (06:40)
[2018-04-16 06:46] LABS: HGB - HEMOGLOBIN 10.6 g/dL (14.0-18.0); MEAN CORPUSCULAR HEMOGLOBIN 32.2 pg (27.0-31.0); MEAN CORPUSCULAR HGB CONC 34.5 g/dL (32.0-36.0); MEAN CORPUSCULAR VOLUME 93.4 fL (80.0-94.0); MEAN PLATELET VOLUME 8.1 fL (7.4-11.4); RED BLOOD COUNT 3.28 10^6/uL (4.70-6.10); RED CELL DISTRIBUTION WIDTH 12.7 % (12.0-15.0); WHITE BLOOD COUNT 10.8 x10^3/uL (4.8-10.8)
[2018-04-16] MEDS: PANTOPRAZOLE 40 MG VIAL IVP SCH (07:39)
[2018-04-16] MEDS: SODIUM CHLORIDE FLUSH 0.9% 10 ML SYRINGE IVP PRN ×2 (07:39→20:15)
--- NOTE | 2018-04-16 10:32 | PROVIDER PROGRESS NOTE ---
Subjective - Prog Note Date Prog Note Date: 04/16/18 Prog Note Time: 10:30 - Subjective Subjective: Twice times try to get up to go to the bathroom and has had near syncope. Once as he walked to the toilet and the of the time when he was sitting on the to ilet. He is still having occasional small amounts of bright red blood per rectum. No chest pain no coughing no wheezing no shortness of breath. Very sleepy now. Was unable to do the prep last night because of complications with pharmacy delivery. As such as colonoscopy is canceled for this morning and who will be prepped today for do colonoscopy tomorrow. Current Medications - Current Medications Current Medications: Active Medications Acetaminophen (Tylenol) 650 mg PO Q4HR PRN PRN Reason: Pain 1 to 4 Hydrocodone Bitart/Acetaminophen ([place] 5/325) 1 tab PO Q4HR PRN PRN Reason: Pain 5 to 7 Gabapentin (Neurontin) 300 mg PO QPM [facility] Sodium Chloride (Normal Saline 0.9%) 1,000 mls @ 100 mls/hr IV .Q10H [facility] Last Admin: 04/16/18 02:40 Dose: 100 mls/hr Insulin Human Regular (Novolin R) 2 - 10 unit SUBQ Q6HR [facility]; Protocol Lisinopril (Zestril) 10 mg PO DAILY [facility] Morphine Sulfate (Morphine (Carpuject)) 2 mg IVP Q2HR PRN PRN Reason: Pain 8 to 10 Ondansetron HCl (Zofran Inj) 4 mg IVP Q6HR PRN PRN Reason: Nausea / Vomiting Pantoprazole Sodium (Protonix) 40 mg IVP QDAC [facility] Last Admin: 04/16/18 07:39 Dose: 40 mg Polyethylene Glycol (Miralax) 17 gm PO DAILY [facility] Prochlorperazine Edisylate (Compazine Inj) 10 mg IVP Q6HR PRN PRN Reason: Nausea / Vomiting Sertraline HCl (Zoloft) 100 mg PO DAILY [facility] [place] Sodium Chloride (Normal Saline Flush 0.9%) 10 ml IVP PRN PRN PRN Reason: NEEDED PER PROVIDER ORDERS Last Admin: 04/16/18 07:39 Dose: 10 ml Sodium Chloride (Normal Saline Flush 0.9%) 10 ml IVP 0100,0900,1700 [facility] Last Admin: 04/16/18 02:40 Dose: 10 ml Temazepam (Restoril) 15 mg PO QPM PRN PRN Reason: Insomnia Witch Mary/Glycerin (Tucks) 1 each TOP PRN PRN PRN Reason: ITCHING HYDROcod/ACETAM 5/325 [[place] 5/325] 1 each PO TID PRN 08/09/13 Insulin Lispro [Humalog] 72 unit [id number] DAILY 08/09/13 Aspirin [Aspir 81] 81 mg PO DAILY 12/12/13 Ergocalciferol [Vitamin D2] 50,000 units PO TH@0900 04/08/18 Gabapentin 300 mg PO QPM 04/08/18 Lisinopril 10 mg PO DAILY 04/08/18 Sertraline HCl 100 mg PO DAILY 04/08/18 Objective - Vital Signs/Intake & Output Reviewed Vital Signs: Yes Vital Signs: Vital Signs x48h Temp Pulse Resp BP Pulse Ox 04/16/18 08:00 96 16 04/16/18 07:16 37 C 103 H 16 125/60 100 Intake & Output: Intake & Output 04/13/18 04/14/18 04/15/18 04/16/18 23:59 23:59 23:59 23:59 Intake Total 620 Balance 620 - Objective General Appearance: positive: No acute distress, Other (Laying in a dark room, rolled over in his right side, asleep. Easily awakens but is still very tired. Denies any abdominal pain. But he says is ironic that he is about to get a prep this can make him "go down there, and that is where the problem is") Eyes Bilateral: positive: PERRL ENT: positive: Pharynx nml Neck: positive: No JVD. negative: Stiff neck, Carotid bruit Respiratory: positive: Chest non-tender. negative: Wheezes, Rales, Rhonchi Cardiovascular: positive: Regular rate & rhythm. negative: Gallop/S4, Friction rub Abdomen: positive: Non-tender, No organomegaly, Nml bowel sounds, No distention Skin: positive: Warm, Dry Extremities: positive: Non-tender, No pedal edema Neurologic/Psychiatric: positive: Oriented x3, CN's nml (2-12), Motor nml - Lab Results Fish Bones: 04/16/18 06:19 04/15/18 23:55 Other Labs: Lab Results x24hrs 04/16/18 04/16/18 04/16/18 Range/Units 07:18 06:19 04:40 WBC 10.8 (4.8-10.8) x10^3/uL RBC 3.28 L (4.70-6.10) 10^6/uL Hgb 10.6 L (14.0-18.0) g/dL Hct 30.6 L (42.0-52.0) % MCV 93.4 (80.0-94.0) fL MCH 32.2 H (27.0-31.0) pg MCHC 34.5 (32.0-36.0) g/dL RDW 12.7 (12.0-15.0) % Plt Count 235 (130-450) 10^3/uL MPV 8.1 (7.4-11.4) fL Neut # (Auto) (1.5-6.6) 10^3/uL Lymph # (Auto) (1.5-3.5) 10^3/uL [place] # (Auto) (0.0-1.0) 10^3/uL Eos # (Auto) (0.0-0.7) 10^3/uL Baso # (Auto) (0.0-0.1) 10^3/uL Absolute Nucleated RBC x10^3/uL Nucleated RBC % /100WBC Sodium (135-145) mmol/L Potassium (3.5-5.0) mmol/L Chloride (101-111) mmol/L Carbon Dioxide (21-32) mmol/L Anion Gap (6-13) BUN (6-20) mg/dL Creatinine (0.6-1.2) mg/dL Estimated GFR (MDRD) (>89) Glucose (70-100) mg/dL POC Whole Bld Glucose 307 H 282 H (70 - 100) mg/dL Calcium (8.5-10.3) mg/dL Total Bilirubin (0.2-1.0) mg/dL AST (10-42) IU/L ALT (10-60) IU/L Alkaline Phosphatase (42-121) IU/L Troponin I (<0.49) ng/mL Total Protein (6.7-8.2) g/dL Albumin (3.2-5.5) g/dL Globulin (2.1-4.2) g/dL Albumin/Globulin Ratio (1.0-2.2) Lipase (22-51) U/L Blood Type Blood Type Recheck Antibody Screen Crossmatch IS Only 04/16/18 04/16/18 04/15/18 Range/Units 01:30 01:11 23:55 WBC (4.8-10.8) x10^3/uL RBC (4.70-6.10) 10^6/uL Hgb (14.0-18.0) g/dL Hct (42.0-52.0) % MCV (80.0-94.0) fL MCH (27.0-31.0) pg MCHC (32.0-36.0) g/dL RDW (12.0-15.0) % Plt Count (130-450) 10^3/uL MPV (7.4-11.4) fL Neut # (Auto) (1.5-6.6) 10^3/uL Lymph # (Auto) (1.5-3.5) 10^3/uL [place] # (Auto) (0.0-1.0) 10^3/uL Eos # (Auto) (0.0-0.7) 10^3/uL Baso # (Auto) (0.0-0.1) 10^3/uL Absolute Nucleated RBC x10^3/uL Nucleated RBC % /100WBC Sodium (135-145) mmol/L Potassium (3.5-5.0) mmol/L Chloride (101-111) mmol/L Carbon Dioxide (21-32) mmol/L Anion Gap (6-13) BUN (6-20) mg/dL Creatinine (0.6-1.2) mg/dL Estimated GFR (MDRD) (>89) Glucose (70-100) mg/dL POC Whole Bld Glucose 234 H (70 - 100) mg/dL Calcium (8.5-10.3) mg/dL Total Bilirubin (0.2-1.0) mg/dL AST (10-42) IU/L ALT (10-60) IU/L Alkaline Phosphatase (42-121) IU/L Troponin I (<0.49) ng/mL Total Protein (6.7-8.2) g/dL Albumin (3.2-5.5) g/dL Globulin (2.1-4.2) g/dL Albumin/Globulin Ratio (1.0-2.2) Lipase (22-51) U/L Blood Type O POSITIVE Blood Type Recheck O POSITIVE Antibody Screen NEGATIVE Crossmatch IS Only See Detail 04/15/18 04/15/18 04/15/18 Range/Units 23:55 23:55 23:55 WBC (4.8-10.8) x10^3/uL RBC (4.70-6.10) 10^6/uL Hgb (14.0-18.0) g/dL Hct (42.0-52.0) % MCV (80.0-94.0) fL MCH (27.0-31.0) pg MCHC (32.0-36.0) g/dL RDW (12.0-15.0) % Plt Count (130-450) 10^3/uL MPV (7.4-11.4) fL Neut # (Auto) (1.5-6.6) 10^3/uL Lymph # (Auto) (1.5-3.5) 10^3/uL [place] # (Auto) (0.0-1.0) 10^3/uL Eos # (Auto) (0.0-0.7) 10^3/uL Baso # (Auto) (0.0-0.1) 10^3/uL Absolute Nucleated RBC x10^3/uL Nucleated RBC % /100WBC Sodium 136 (135-145) mmol/L Potassium 3.5 (3.5-5.0) mmol/L Chloride 104 (101-111) mmol/L Carbon Dioxide 24 (21-32) mmol/L Anion Gap 8.0 (6-13) BUN 9 (6-20) mg/dL Creatinine 0.8 (0.6-1.2) mg/dL Estimated GFR (MDRD) 127 (>89) Glucose 251 H (70-100) mg/dL POC Whole Bld Glucose (70 - 100) mg/dL Calcium 8.5 (8.5-10.3) mg/dL Total Bilirubin 0.4 (0.2-1.0) mg/dL AST 20 (10-42) IU/L ALT 23 (10-60) IU/L Alkaline Phosphatase 71 (42-121) IU/L Troponin I < 0.04 (<0.49) ng/mL Total Protein 6.4 L (6.7-8.2) g/dL Albumin 3.6 (3.2-5.5) g/dL Globulin 2.8 (2.1-4.2) g/dL Albumin/Globulin Ratio 1.3 (1.0-2.2) Lipase 26 (22-51) U/L Blood Type O POSITIVE Blood Type Recheck Antibody Screen NEGATIVE Crossmatch IS Only 04/15/18 Range/Units 23:55 WBC 9.1 (4.8-10.8) x10^3/uL RBC 4.02 L (4.70-6.10) 10^6/uL Hgb 13.3 L (14.0-18.0) g/dL Hct 37.4 L (42.0-52.0) % MCV 93.0 (80.0-94.0) fL MCH 33.2 H (27.0-31.0) pg MCHC 35.7 (32.0-36.0) g/dL RDW 12.6 (12.0-15.0) % Plt Count 260 (130-450) 10^3/uL MPV 7.8 (7.4-11.4) fL Neut # (Auto) 5.3 (1.5-6.6) 10^3/uL Lymph # (Auto) 2.5 (1.5-3.5) 10^3/uL [place] # (Auto) 0.8 (0.0-1.0) 10^3/uL Eos # (Auto) 0.3 (0.0-0.7) 10^3/uL Baso # (Auto) 0.1 (0.0-0.1) 10^3/uL Absolute Nucleated RBC 0.01 x10^3/uL Nucleated RBC % 0.1 /100WBC Sodium (135-145) mmol/L Potassium (3.5-5.0) mmol/L Chloride (101-111) mmol/L Carbon Dioxide (21-32) mmol/L Anion Gap (6-13) BUN (6-20) mg/dL Creatinine (0.6-1.2) mg/dL Estimated GFR (MDRD) (>89) Glucose (70-100) mg/dL POC Whole Bld Glucose (70 - 100) mg/dL Calcium (8.5-10.3) mg/dL Total Bilirubin (0.2-1.0) mg/dL AST (10-42) IU/L ALT (10-60) IU/L Alkaline Phosphatase (42-121) IU/L Troponin I (<0.49) ng/mL Total Protein (6.7-8.2) g/dL Albumin (3.2-5.5) g/dL Globulin (2.1-4.2) g/dL Albumin/Globulin Ratio (1.0-2.2) Lipase (22-51) U/L Blood Type Blood Type Recheck Antibody Screen Crossmatch IS Only ABX Reporting Has patient been on IV antibiotics over the past 48 hours?: No Sepsis Event Note (H) - Evaluation Current Stage of Sepsis: Ruled out Assessment/Plan - Problem List (1) Rectal bleeding Impression: He had an episode of near syncope with going to the bathroom. And then another episode sitting on the toilet. Not having large amounts of blood. Hemoglobin is gone from 13-10. : Check hemogram at noon Already typed and cross, transfuse when goes below 7 grams hgb Surgery consult for colonoscopy. 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 Be added to the schedule for tomorrow. (2) Rectal abscess Impression: s/p I&D. on abx and to continue. (3) Diabetes mellitus with hyperglycemia Impression: Glucose has been 234 at 1 in the morning, 280 4:58 in the morning, and up to 3 of 7 by 7:30 in the morning. Plan: Lantus 10 units now. On a pump. Q. 6-hour glucose checks before clear liquid diet, sliding scale as necessary. Consider adding fixed dose insulin before meals Qualifiers: Diabetes mellitus type: type 2 Diabetes mellitus snf insulin use: with snf use Qualified Code(s): E11.65 - Type 2 diabetes mellitus with hyperglycemia; Z79.4 - [facility] (current) use of insulin; Z79.4 - ferry terminal agent (current) use of insulin; Z79.4 - ferry terminal agent (current) use of insulin; Z79.4 - [facility] (current) use of insulin
[2018-04-16] MEDS ORDERED: INSULIN GLARGINE 300 UNIT/3 ML PEN SUBQ SCH ×2 (11:00→21:00)
[2018-04-16] MEDS: LISINOPRIL 5 MG TABLET PO SCH (11:01)
[2018-04-16] MEDS: POLYETHYLENE GLYCOL 3350 17 GM PACKET PO SCH (11:23)
[2018-04-16 11:57] LABS: HGB - HEMOGLOBIN 9.9 g/dL (14.0-18.0); MEAN CORPUSCULAR HEMOGLOBIN 31.9 pg (27.0-31.0); MEAN CORPUSCULAR HGB CONC 34.8 g/dL (32.0-36.0); MEAN CORPUSCULAR VOLUME 91.7 fL (80.0-94.0); MEAN PLATELET VOLUME 8.2 fL (7.4-11.4); RED BLOOD COUNT 3.1 10^6/uL (4.70-6.10); RED CELL DISTRIBUTION WIDTH 12.4 % (12.0-15.0); WHITE BLOOD COUNT 12.5 x10^3/uL (4.8-10.8)
[2018-04-16] MEDS: SERTRALINE 50 MG TABLET PO SCH (12:20)
[2018-04-16 18:18] LABS: HGB - HEMOGLOBIN 9.3 g/dL (14.0-18.0)
[2018-04-16] MEDS: SODIUM/POTASSIUM/MAG SULFATES 354 ML PREP KIT PO SCH (18:20)
[2018-04-16 18:37] LABS: HB2 TOTAL 9.8 g/dL; HEMOGLOBIN A1C 0.86 g/dL; HEMOGLOBIN A1C % 10.2 % (4.6-6.2)
[2018-04-16] MEDS: LORazepam 2 MG/ML VIAL IVP PRN (20:14)
[2018-04-16] MEDS ORDERED: GABAPENTIN 300 MG CAPSULE PO SCH (21:00)
[2018-04-17] MEDS: INSULIN REGULAR HUMAN 100 UNIT/1 ML 10 ML MDV SUBQ SCH ×3 (00:16→12:10)
[2018-04-17 00:34] LABS: HGB - HEMOGLOBIN 7.7 g/dL (14.0-18.0)
[2018-04-17] MEDS: SODIUM CHLORIDE 0.9% 1,000 ML IV SCH ×2 (02:34→14:36)
[2018-04-17] MEDS: SODIUM/POTASSIUM/MAG SULFATES 354 ML PREP KIT PO SCH (05:51)
[2018-04-17] MEDS: SODIUM CHLORIDE FLUSH 0.9% 10 ML SYRINGE IVP SCH ×2 (05:51→08:48)
[2018-04-17] MEDS: LORazepam 2 MG/ML VIAL IVP PRN ×2 (05:51→07:17)
[2018-04-17 06:22] LABS: MEAN CORPUSCULAR HEMOGLOBIN 31.3 pg (27.0-31.0); MEAN CORPUSCULAR HGB CONC 33.1 g/dL (32.0-36.0); MEAN CORPUSCULAR VOLUME 94.4 fL (80.0-94.0); RED BLOOD COUNT 2.14 10^6/uL (4.70-6.10); RED CELL DISTRIBUTION WIDTH 12.7 % (12.0-15.0); WHITE BLOOD COUNT 16.3 x10^3/uL (4.8-10.8)
[2018-04-17 06:23] LABS: HGB - HEMOGLOBIN 6.7 g/dL (14.0-18.0)
--- NOTE | 2018-04-17 06:49 | PROVIDER PROGRESS NOTE ---
Hospitalist Cross-cover Note - Cross-Cover Note Cross-Cover Note: I have been following the patient throughout the night with respect to his continually dropping hemoglobin and hematocrit. We decided to add a midnight check given the significant drop on his last check. He also been having significant vomiting requiring and IV Compazine. He was also quite anxious requiring an Ativan. When I evaluated him at the bedside at approximately 11 PM he was too obtunded and lethargic to carry on a conversation regarding his wishes for the plan. I returned to evaluate him this morning after the morning labs which demonstrate a drop again and hemoglobin this time to a 6.7 and hematocrit of 23. The patient is tachycardic though he has been throughout the admission. His blood pressure is maintaining. His mentation is completely normal at baseline and he is relatively asymptomatic however, he is concerned that he just started another round of bowel prep and when he does have bowel movements he gets quite syncopal, lightheaded, and generally feels unwell throughout. We discussed the option of a transfusion including the pros and cons and while I do not think it is absolutely emergent with a hemoglobin of 6.7, it certainly is heading in that direction and given that the colonoscopy is not until this afternoon and there is no certainty that we will be able to stop the bleeding, I do not think it is unreasonable at this point to transfuse and the patient agreed that he would like to go ahead and proceed. An order was placed for 2 units PRBCs.
[2018-04-17] MEDS ORDERED: diphenhydrAMINE 25 MG CAPSULE PO ONE (07:00)
[2018-04-17] MEDS: PANTOPRAZOLE 40 MG VIAL IVP SCH (08:31)
--- NOTE | 2018-04-17 09:17 | PROVIDER PROGRESS NOTE ---
Subjective - Prog Note Date Prog Note Date: 04/17/18 Prog Note Time: 09:28 - Subjective Subjective: He has been really scared. Having episodes of tachycardia, nausea. Usually associated with bright red blood per rectum. Needed Ativan yesterday. This morning he says he feels better. Between the Ativan, cold washcloth, antiemetics, he does not feel nearly as miserable. He is still concerned about the bright red blood per rectum. He ended up dropping his hemoglobin to 6.7 and now needs 2 units of packed cells this morning. Colonoscopy is still for this afternoon. Denies chest pain, cough, fever, chills. Current Medications - Current Medications Current Medications: Active Medications Generic Name Dose Route Start Last Admin Trade Name Freq PRN Reason Stop Dose Admin Acetaminophen 650 mg 04/16/18 00:57 04/16/18 11:18 Tylenol PO 650 mg Q4HR PRN Administration Pain 1 to 4 Hydrocodone Bitart/Acetaminophen 1 tab 04/16/18 00:57 [place] 5/325 PO Q4HR PRN Pain 5 to 7 Gabapentin 300 mg 04/16/18 21:00 04/16/18 22:07 Neurontin PO Not Given QPM KATHERIN Sodium Chloride 1,000 mls @ 175 mls/hr 04/16/18 20:10 04/17/18 08:48 Normal Saline 0.9% IV Infused .[id number] KATHERIN Infusion Insulin Aspart 5 unit 04/17/18 12:00 Novolog SUBQ TIDWM KATHERIN Protocol Insulin Glargine 10 unit 04/16/18 21:00 04/16/18 21:58 Lantus Solostar SUBQ 10 unit QPM KATHERIN Administration Insulin Glargine 20 unit 04/17/18 10:00 Lantus Solostar SUBQ DAILY KATHERIN Insulin Human Regular 2 - 10 unit 04/16/18 12:00 04/17/18 05:53 Novolin R SUBQ 8 unit Q6HR KATHERIN Administration Protocol Lisinopril 10 mg 04/16/18 09:00 04/16/18 11:01 Zestril PO Not Given DAILY KATHERIN Lorazepam 1 mg 04/16/18 20:03 04/17/18 07:17 Ativan Inj (Vial) IVP 1 mg Q3H PRN Administration Anxiety Morphine Sulfate 2 mg 04/16/18 00:57 Morphine (Carpuject) IVP Q2HR PRN Pain 8 to 10 Ondansetron HCl 4 mg 04/16/18 00:57 Zofran Inj IVP Q6HR PRN Nausea / Vomiting Pantoprazole Sodium 40 mg 04/16/18 07:00 04/17/18 08:31 Protonix IVP 40 mg QDAC KATHERIN Administration Polyethylene Glycol 17 gm 04/16/18 09:00 04/16/18 11:23 Miralax PO Not Given DAILY KATHERIN Prochlorperazine Edisylate 10 mg 04/16/18 00:57 04/16/18 22:07 Compazine Inj IVP 10 mg Q6HR PRN Administration Nausea / Vomiting Sertraline HCl 100 mg 04/16/18 09:00 04/16/18 12:20 Zoloft PO 100 mg DAILY KATHERIN Administration Sodium Chloride 10 ml 04/16/18 00:57 04/16/18 20:15 Normal Saline Flush 0.9% IVP 10 ml PRN PRN Administration NEEDED PER PROVIDER ORDERS Sodium Chloride 10 ml 04/16/18 01:00 04/17/18 08:48 Normal Saline Flush 0.9% IVP Not Given 0100,0900,1700 KATHERIN Temazepam 15 mg 04/16/18 01:30 Restoril PO QPM PRN Insomnia Witch Mary/Glycerin 1 each 04/16/18 06:40 Tucks TOP PRN PRN ITCHING HYDROcod/ACETAM 5/325 [[place] 5/325] 1 each PO TID PRN 08/09/13 Insulin Lispro [Humalog] 72 unit [id number] DAILY 08/09/13 Aspirin [Aspir 81] 81 mg PO DAILY 12/12/13 Ergocalciferol [Vitamin D2] 50,000 units PO TH@0900 04/08/18 Gabapentin 300 mg PO QPM 04/08/18 Lisinopril 10 mg PO DAILY 04/08/18 Sertraline HCl 100 mg PO DAILY 04/08/18 Objective - Vital Signs/Intake & Output Reviewed Vital Signs: Yes Vital Signs: Vital Signs x48h Temp Pulse Pulse Resp BP BP Pulse Ox 04/17/18 09:00 37.0 C 128 H 16 131/70 H 04/17/18 08:38 37.4 C 128 H 16 141/74 H 04/17/18 08:01 37.0 C 129 H 20 139/82 H 100 04/17/18 05:00 37.0 C 134 H 18 137/68 H 100 Intake & Output: Intake & Output 04/14/18 04/15/18 04/16/18 04/17/18 23:59 23:59 23:59 23:59 Intake Total 3034.160 1848.333 Output Total 3300 1100 Balance -265.840 748.333 - Objective General Appearance: positive: No acute distress, Alert, Other (Moderately overweight black male in no acute distress laying on his right side, cold washcloth on his face, asleep but awakens easily when I walk in the room) Eyes Bilateral: positive: PERRL, EOMI ENT: positive: Pharynx nml Neck: positive: No JVD. negative: Stiff neck, Carotid bruit Respiratory: positive: Chest non-tender. negative: Wheezes, Rales, Rhonchi Cardiovascular: positive: Regular rate & rhythm, Tachycardia. negative: Sys tolic murmur, Gallop/S4, Friction rub Abdomen: positive: Non-tender, No organomegaly, Nml bowel sounds, No distention Skin: positive: Warm, Diaphoresis Extremities: positive: Non-tender, Full ROM Neurologic/Psychiatric: positive: Oriented x3, CN's nml (2-12), Motor nml, Sensation nml. negative: Mood/affect nml - Lab Results Fish Bones: 04/17/18 15:50 04/15/18 23:55 Other Labs: Lab Results x24hrs 04/17/18 04/17/18 04/17/18 Range/Units 06:00 05:30 00:19 WBC 16.3 H (4.8-10.8) x10^3/uL RBC 2.14 L (4.70-6.10) 10^6/uL Hgb 6.7 L* 7.7 L (14.0-18.0) g/dL Hct 20.2 L 23.3 L (42.0-52.0) % MCV 94.4 H (80.0-94.0) fL MCH 31.3 H (27.0-31.0) pg MCHC 33.1 (32.0-36.0) g/dL RDW 12.7 (12.0-15.0) % Plt Count 205 (130-450) 10^3/uL MPV 8.0 (7.4-11.4) fL POC Whole Bld Glucose 312 H (70 - 100) mg/dL Glycated Hemoglobin (4.6-6.2) % Estim Average Glucose (70-100) Blood Type Antibody Screen Crossmatch IS Only 04/16/18 04/16/18 04/16/18 Range/Units 23:24 21:53 18:06 WBC (4.8-10.8) x10^3/uL RBC (4.70-6.10) 10^6/uL Hgb (14.0-18.0) g/dL Hct (42.0-52.0) % MCV (80.0-94.0) fL MCH (27.0-31.0) pg MCHC (32.0-36.0) g/dL RDW (12.0-15.0) % Plt Count (130-450) 10^3/uL MPV (7.4-11.4) fL POC Whole Bld Glucose 408 H 393 H 298 H (70 - 100) mg/dL Glycated Hemoglobin (4.6-6.2) % Estim Average Glucose (70-100) Blood Type Antibody Screen Crossmatch IS Only 04/16/18 04/16/18 04/16/18 Range/Units 18:05 18:05 11:54 WBC 12.5 H (4.8-10.8) x10^3/uL RBC 3.10 L (4.70-6.10) 10^6/uL Hgb 9.3 L 9.9 L (14.0-18.0) g/dL Hct 26.9 L 28.4 L (42.0-52.0) % MCV 91.7 (80.0-94.0) fL MCH 31.9 H (27.0-31.0) pg MCHC 34.8 (32.0-36.0) g/dL RDW 12.4 (12.0-15.0) % Plt Count 229 (130-450) 10^3/uL MPV 8.2 (7.4-11.4) fL POC Whole Bld Glucose (70 - 100) mg/dL Glycated Hemoglobin 10.2 H (4.6-6.2) % Estim Average Glucose 246 H (70-100) Blood Type Antibody Screen Crossmatch IS Only 04/16/18 04/15/18 Range/Units 11:52 23:55 WBC (4.8-10.8) x10^3/uL RBC (4.70-6.10) 10^6/uL Hgb (14.0-18.0) g/dL Hct (42.0-52.0) % MCV (80.0-94.0) fL MCH (27.0-31.0) pg MCHC (32.0-36.0) g/dL RDW (12.0-15.0) % Plt Count (130-450) 10^3/uL MPV (7.4-11.4) fL POC Whole Bld Glucose 304 H (70 - 100) mg/dL Glycated Hemoglobin (4.6-6.2) % Estim Average Glucose (70-100) Blood Type O POSITIVE Antibody Screen NEGATIVE Crossmatch IS Only See Detail ABX Reporting Has patient been on IV antibiotics over the past 48 hours?: No Sepsis Event Note (H) - Evaluation Current Stage of Sepsis: Ruled out Assessment/Plan - Problem List (1) Rectal bleeding Impression: He had several episodes of near syncope with going to the bathroom yesterday. Started having large amounts of blood w BM and hemoglobin is gone from 13.3>10.6>9.9>9.3>7.7>6.7 this am. Now receiving 2 units of PRBC Plan: Already typed and cross, transfusion when goes below 7 grams hgb Surgery consult for colonoscopy. 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 (2) Rectal abscess Impression: s/p I&D. was on abx and surgery did not feel he needed more. I thought he was on some here, he is not. No fever, no chills, no elevated WBC. (3) Diabetes mellitus with hyperglycemia Impression: Yesterday glucose was 234, 282, 307, 304, 298, 393 and at midnight 408. This morning he is 312. His pump is off. And this is in spite of being on Lantus and sliding scale. But increase the Lantus again today. Plan: Lantus 20 bid Not On a pump. Q. 6-hour glucose checks before clear liquid diet, sliding scale as necessary. Consider adding fixed dose insulin before meals Qualifiers: Diabetes mellitus type: type 2 Diabetes mellitus cargo inspector insulin use: with jail use Qualified Code(s): E11.65 - Type 2 diabetes mellitus with hyperglycemia; Z79.4 - [facility] (current) use of insulin; Z79.4 - time clock inspector (current) use of insulin; Z79.4 - time clock inspector (current) use of insulin; Z79.4 - [facility] (current) use of insulin
[2018-04-17] MEDS ORDERED: INSULIN GLARGINE 300 UNIT/3 ML PEN SUBQ SCH (10:00)
[2018-04-17] MEDS: LISINOPRIL 5 MG TABLET PO SCH (10:11)
[2018-04-17] MEDS: SERTRALINE 50 MG TABLET PO SCH (10:11)
--- NOTE | 2018-04-17 11:26 | ANESTHESIA ---
Pre-Anesthesia VS, & Labs - Diagnosis Diagnosis Rectal bleeding - Procedure colonoscopy Vital Signs: Temp Pulse Resp BP Pulse Ox 37.2 C 111 H 18 118/53 L 100 04/17/18 11:14 04/17/18 11:14 04/17/18 11:14 04/17/18 11:14 04/17/18 11:14 Height 6 ft Weight (kg) 132.268 kg Body Mass Index 39.5 - NPO >8 hours - Lab Results Current Lab Results: Laboratory Tests 04/17/18 10:56: POC Whole Bld Glucose 303 H 04/17/18 06:00: WBC 16.3 H, RBC 2.14 L, Hgb 6.7 L*, Hct 20.2 L, MCV 94.4 H, MCH 31.3 H, MCHC 33.1, RDW 12.7, Plt Count 205, MPV 8.0 04/17/18 05:30: POC Whole Bld Glucose 312 H 04/17/18 00:19: Hgb 7.7 L, Hct 23.3 L 04/16/18 23:24: POC Whole Bld Glucose 408 H 04/16/18 21:53: POC Whole Bld Glucose 393 H 04/16/18 18:06: POC Whole Bld Glucose 298 H 04/16/18 18:05: Hgb 9.3 L, Hct 26.9 L 04/16/18 18:05: Glycated Hemoglobin 10.2 H, Estim Average Glucose 246 H 04/16/18 11:54: WBC 12.5 H, RBC 3.10 L, Hgb 9.9 L, Hct 28.4 L, MCV 91.7, MCH 31.9 H, MCHC 34.8, RDW 12.4, Plt Count 229, MPV 8.2 04/16/18 11:52: POC Whole Bld Glucose 304 H 04/16/18 07:18: POC Whole Bld Glucose 307 H 04/16/18 06:19: WBC 10.8, RBC 3.28 L, Hgb 10.6 L, Hct 30.6 L, MCV 93.4, MCH 32.2 H, MCHC 34.5, RDW 12.7, Plt Count 235, MPV 8.1 04/16/18 04:40: POC Whole Bld Glucose 282 H 04/16/18 01:30: Blood Type Recheck O POSITIVE 04/16/18 01:11: POC Whole Bld Glucose 234 H 04/15/18 23:55: Blood Type O POSITIVE, Antibody Screen NEGATIVE, Crossmatch IS Only See Detail 04/15/18 23:55: Blood Type O POSITIVE, Antibody Screen NEGATIVE 04/15/18 23:55: Troponin I < 0.04 04/15/18 23:55: Sodium 136, Potassium 3.5, Chloride 104, Carbon Dioxide 24, Anion Gap 8.0, BUN 9, Creatinine 0.8, Estimated GFR (MDRD) 127, Glucose 251 H, Calcium 8.5, Total Bilirubin 0.4, AST 20, ALT 23, Alkaline Phosphatase 71, Total Protein 6.4 L, Albumin 3.6, Globulin 2.8, Albumin/Globulin Ratio 1.3, Lipase 26 04/15/18 23:55: WBC 9.1, RBC 4.02 L, Hgb 13.3 L, Hct 37.4 L, MCV 93.0, MCH 33.2 H, MCHC 35.7, RDW 12.6, Plt Count 260, MPV 7.8, Neut # (Auto) 5.3, Lymph # (Auto) 2.5, [place] # (Auto) 0.8, Eos # (Auto) 0.3, Baso # (Auto) 0.1, Absolute Nucleated RBC 0.01, Nucleated RBC % 0.1 Fish Bones: 04/17/18 06:00 04/15/18 23:55 Home Medications and Allergies Active Medications Acetaminophen (Tylenol) 650 mg PO Q4HR PRN PRN Reason: Pain 1 to 4 Last Admin: 04/16/18 11:18 Dose: 650 mg Hydrocodone Bitart/Acetaminophen ([place] 5/325) 1 tab PO Q4HR PRN PRN Reason: Pain 5 to 7 Gabapentin (Neurontin) 300 mg PO QPM KATHERIN Last Admin: 04/16/18 22:07 Dose: Not Given Sodium Chloride (Normal Saline 0.9%) 1,000 mls @ 175 mls/hr IV .Q5H43M KATHERIN Last Infusion: 04/17/18 08:48 Dose: Infused Insulin Aspart (Novolog) 5 unit SUBQ TIDWM KATHERIN; Protocol Insulin Glargine (Lantus Solostar) 10 unit SUBQ QPM KATHERIN Last Admin: 12/02/18 21:58 Dose: 10 unit Insulin Glargine (Lantus Solostar) 20 unit SUBQ DAILY [facility] Insulin Human Regular (Novolin R) 2 - 10 unit SUBQ Q6HR [facility]; Protocol Last Admin: 04/17/18 05:53 Dose: 8 unit Lisinopril (Zestril) 10 mg PO DAILY [facility] Last Admin: 04/17/18 10:11 Dose: 10 mg Lorazepam (Ativan Inj (Vial)) 1 mg IVP Q3H PRN PRN Reason: Anxiety Last Admin: 04/17/18 07:17 Dose: 1 mg Morphine Sulfate (Morphine (Carpuject)) 2 mg IVP Q2HR PRN PRN Reason: Pain 8 to 10 Ondansetron HCl (Zofran Inj) 4 mg IVP Q6HR PRN PRN Reason: Nausea / Vomiting Pantoprazole Sodium (Protonix) 40 mg IVP QDAC [facility] Last Admin: 04/17/18 08:31 Dose: 40 mg Polyethylene Glycol (Miralax) 17 gm PO DAILY [facility] Last Admin: 04/16/18 11:23 Dose: Not Given Prochlorperazine Edisylate (Compazine Inj) 10 mg IVP Q6HR PRN PRN Reason: Nausea / Vomiting Last Admin: 04/16/18 22:07 Dose: 10 mg Sertraline HCl (Zoloft) 100 mg PO DAILY [facility] Last Admin: 04/17/18 10:11 Dose: 100 mg Sodium Chloride (Normal Saline Flush 0.9%) 10 ml IVP PRN PRN PRN Reason: NEEDED PER PROVIDER ORDERS Last Admin: 04/16/18 20:15 Dose: 10 ml Sodium Chloride (Normal Saline Flush 0.9%) 10 ml IVP 0100,0900,1700 [facility] Last Admin: 04/17/18 08:48 Dose: Not Given Temazepam (Restoril) 15 mg PO QPM PRN PRN Reason: Insomnia [place]/Glycerin (Tucks) 1 each TOP PRN PRN PRN Reason: ITCHING HYDROcod/ACETAM 5/325 [[place] 5/325] 1 each PO TID PRN 08/09/13 Insulin Lispro [Humalog] 72 unit [id number] DAILY 08/09/13 Aspirin [Aspir 81] 81 mg PO DAILY 12/12/13 Ergocalciferol [Vitamin D2] 50,000 units PO TH@0900 04/08/18 Gabapentin 300 mg PO QPM 04/08/18 Lisinopril 10 mg PO DAILY 04/08/18 Sertraline HCl 100 mg PO DAILY 04/08/18 Allergies/Adverse Reactions: Allergies Allergy/AdvReac Type Severity Reaction Status Date / Time azithromycin AdvReac Nausea Verified 04/15/18 22:34 Anes History & Medical History - Anesthetic History Anesthesia Complications: reports: No previous complications Family history of Anesthesia Complications: Denies - Medical History Cardiovascular: reports: Hypertension Pulmonary: reports: None Gastrointestinal: reports: GERD, Other Urinary: reports: Other Neuro: reports: None Musculoskeletal: reports: Chronic back pain, Other Endocrine/Autoimmune: reports: Type 2 diabetes, Other Blood Disorders: reports: None Skin: reports: None Smoking Status: Former smoker - Surgical History General: Bowel surgery Eyes Ears Nose Throat (EENT): Tonsil/Adenoidectomy Orthopedic: Other Plan Anesthesia Type: MAC Consent for Procedure(s) Verified and Reviewed: Yes Code Status: Attempt Resuscitation ASA classification: 3-Severe systemic disease Is this case an emergency?: Yes
[2018-04-17] MEDS: POLYETHYLENE GLYCOL 3350 17 GM PACKET PO SCH (11:43)
[2018-04-17] MEDS ORDERED: LACTATED RINGERS 1,000 ML IV ONE (11:57)
[2018-04-17] MEDS: INSULIN ASPART 300 UNIT/3 ML PEN SUBQ SCH ×2 (12:10→17:11)
[2018-04-17] MEDS ORDERED: MIDAZOLAM 2 MG/2 ML VIAL IVP ONE (12:20)
[2018-04-17] MEDS ORDERED: PROPOFOL 200 MG/20 ML VIAL IVP ONE (12:20)
[2018-04-17] MEDS ORDERED: LIDOCAINE-MPF 2% 5 ML VIAL IM ONE (12:20)
[2018-04-17 16:00] LABS: HGB - HEMOGLOBIN 7.9 g/dL (14.0-18.0)
[2018-04-17 16:09] VITALS: BP 124/54
--- NOTE | 2018-04-17 16:21 | Discharge Plan ---
Discharge Plan Disposition: 01 Home, Self Care Condition: Good Diet: Diabetic Activity Restrictions: Activity as Tolerated (BUT NO WORK UNTIL 04/21/18) Shower Restrictions: No Driving Restrictions: No Instruction Topics: Hemorrhoids Self Care, Bleeding Rectal, Hemorrhoids, Sitz Bath Additional Instructions or Follow Up instructions: You were admitted to the hospital because of episodes of bloody rectal discharge. You had recently been discharged from the hospital after an incision and debridement for a supra levator rectal abscess. It is very rare, but you seem to have had significant hemorrhoidal bleeding. A colonoscopy was done and you had the healing abscess area with clot over the healing abscess, and hemorrhoids that were oozing. Your hemoglobin started at 13.3. Normal is 14 grams. After bloody bowel movements and a colonoscopy prep, your hemoglobin drifted to 6.7 g. You received 2 units of blood and at discharge you were 7.9 grams. Please take an iron tablet of ferrous gluconate once a day. Do not worry that it will make your stools black. Please see Dr. Ernst or Dr. Solis in the next week in their office. It is stressed that you make sure that you do not get constipated. This will make rectal bleeding worse. So take Colace, fiber, and lots of water on a regular basis. Sitz baths sometimes take care of any rectal discomfort you may have. If you develop further serious, copious bloody stool, please come back to the emergency room. If you develop fever, chills, rectal pain please come back to the emergency room. No Smoking: If you smoke, Please STOP! Call for help. Follow-up with: Yaritza Obrien PA [Primary Care Provider] - Kenn Solis MD [Provider Admit Priv/Credential] -
[2018-04-17] MEDS ORDERED: INSULIN ASPART 300 UNIT/3 ML PEN SUBQ SCH (17:00)
--- NOTE | 2018-04-20 13:25 | DISCHARGE SUMMARY ---
Physician: Mindy Munoz MD DATE OF ADMISSION: 04/16/2018 DATE OF DISCHARGE: 04/17/2018 DISCHARGE DIAGNOSES 1. Rectal bleeding. 2. Acute blood loss anemia. 3. Rectal abscess. 4. Bleeding hemorrhoids. 5. Hypertension. 6. Diabetes mellitus, with hyperglycemia, uncontrolled, with complications, on long-term use of insulin. 7. Anxiety. DISCHARGE MEDICATIONS 1. Aspirin 81 mg a day. 2. Vitamin D2 at 50,000 units weekly. 3. Gabapentin 300 mg in the evening. 4. [place] 5/325 at 1 p.o. t.i.d. p.r.n. 5. Lispro insulin pump continuous. 6. Lisinopril 10 mg daily. 7. Sertraline 100 mg daily. PRINCIPAL PROCEDURES 1. Colonoscopy, diagnostic, with moderate sized internal hemorrhoids found. Clot at the site of I and D site, which is not actively bleeding. Retroflex views also continue to reveal internal hemorrhoids. 2. Transfusion of 2 units of packed cells. HOSPITAL COURSE: The patient was just discharged from the hospital on 04/08/2018 for rectal abscess which required an I and D. He had been on IV antibiotics and responded well to the incision and debridement so that General Surgery felt he did not need antibiotics at time of discharge. He was instructed on the use of Sitz baths, instructed on the use of better control for his diabetes, and sent home with a small dose of oral narcotics but instructed to keep his stool as soft as possible. He began having bright red blood per rectum. It started at 8 o'clock in the evening without any known provocation. There have been times during the week where he was pushing a little bit more than usual, but his bowel movements have been soft. He has no pain, but he is feeling dizziness and lightheadedness with this blood. No shortness of breath, no chest pain, no weakness. His initial hemoglobin was slightly lower than baseline. He presented as 13.3. The patient was instructed to get a prep that night for colonoscopy the next day. However, he was tired, and every time he got up to have a bowel movement he became exceedingly lightheaded just walking to the toilet or sitting on the toilet. As such, prep was not given. The next day we reinstituted the order for a prep. Hemoglobin did drop. His lowest was 6.7. He was given 2 units of packed cells and hemoglobin went up to 7.9. He has no longer had lightheadedness or dizziness. Colonoscopy revealed internal hemorrhoids or bleeding as well as a clot on the incision and debridement site. He was not felt to have any other source of bleeding. He was transfused 2 units of blood. Blood pressure was highest 177/85 and high during the stay in the 140s-150s. Some of this may be due to quite a bit of anxiety. Diabetes continues to be uncontrolled. He says he is going to be making an effort on that in the outpatient setting. He did not have his pump on during his stay, and that was resumed at discharge. On the day of discharge, we asked him if he wanted to stay 1 more day to watch his hemoglobin, but he said he felt better. PHYSICAL EXAMINATION VITAL SIGNS: Temperature was 36.8, pulse 81, blood pressure 149/88, respirations 18, 99% on room air. GENERAL: He is a tall, groomed, well-nourished black male, in no acute distress. CHEST: Lungs clear. Heart regular rate and rhythm. ABDOMEN: Soft, nontender. EXTREMITIES: Without edema. Able to ambulate in the room. He is just very tired. Instructed to keep stool soft. See General Surgery in the next week. Fiber, water, and stool softeners recommended. No new medications ordered. See his primary care provider in the next week as well. He wanted a letter for no return to work at this time. I wrote a letter stating that he could return to work after 3 days. TD: 04/20/2018 12:51 MARIUSZ
== END 2018-04-17 17:15 | disposition home or self-care (01) ==
LOC: ED 22:26 → MS2 04-16 00:57
PROVIDERS: ADMIT Family Medicine Sports Medicine; ATTEND Specialist
PROC: 0DJD8ZZ Inspection of Lower Intestinal Tract, Via Natural or Artificial Opening Endoscopic (ICD-10-PCS; principal; 2018-04-15)
DX: K62.5 Hemorrhage of anus and rectum (principal); D62 Acute posthemorrhagic anemia; K61.1 Rectal abscess; K64.8 Other hemorrhoids; K64.4 Residual hemorrhoidal skin tags; I10 Essential (primary) hypertension; E11.65 Type 2 diabetes mellitus with hyperglycemia; Z79.4 Long term (current) use of insulin; F41.9 Anxiety disorder, unspecified; K21.9 Gastro-esophageal reflux disease without esophagitis; E66.01 Morbid (severe) obesity due to excess calories; Z68.39 Body mass index [BMI] 39.0-39.9, adult
CPT/HCPCS: 36415; 45378; 80053; 83036; 83690; 84484; 85014; 85018; 85025; 85027; 86850; 86900; 86901; 86920; 96365; 96375; 99283; 99284; A9270; G0378; J1815; J2060; J7120; P9016

== ENCOUNTER 2018-04-20 05:44 | Observation (INO) | payer OTHER ==
[2018-04-20] MEDS ORDERED: ONDANSETRON 4 MG/2 ML VIAL IVP STA (06:43)
[2018-04-20] MEDS ORDERED: HYDROmorphone 1 MG/ML CARPUJECT IVP STA ×2 (06:43→09:12)
--- NOTE | 2018-04-20 07:23 | CT Report ---
Reason: headache, vision changes Procedure Date: 04/20/2018 Accession Number: [id number] / [id number] Procedure: CT - Head W/O CPT Code: FULL RESULT: EXAM: CT HEAD EXAM DATE: 04/20/2018 07:07 AM. CLINICAL HISTORY: Headache, vision changes. COMPARISON: None. TECHNIQUE: Multiaxial CT images were obtained from the foramen magnum to the vertex. Reformats: Sagittal and coronal. IV contrast: None. In accordance with CT protocol optimization, one or more of the following dose reduction techniques were utilized for this exam: automated exposure control, adjustment of mA and/or KV based on patient size, or use of iterative reconstructive technique. FINDINGS: Parenchyma: No intraparenchymal hemorrhage. No evidence of mass, midline shift, or CT findings of infarction. Harley-white differentiation is distinct. Extraaxial Spaces: Normal for age. No subdural or epidural collections identified. Ventricles: Normal in size and position. Sinuses and Orbits: Imaged paranasal sinuses, orbits, and mastoids show no significant abnormality. Bones: No evidence of fracture or calvarial defect. Other: None. IMPRESSION: No acute intracranial abnormality. RADIA
--- NOTE | 2018-04-20 08:12 | ED Physician Documentation ---
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 DM HLD HTN also recent GI surgery for rectal abscess with GI bleed and low H/H req transfusion (dc summary not available yet) last night about 5 PM he developed vision changes then this AM awoke at 5 Am and could not see at all - not a field cut, not double vision, no blurry vision - could only see light and dark no hearing loss no speech abn no weakness or numbness after awakening with loss of vision he deveoped a R temporal and R neck pain had some palpiations as well see by wire annealer - not a TPA candidate - CTH and labs ordered - CTH is back and neg - labs have not yet been drawn otherwise well - no CP BP etc no trauma no CO exposure Review of Systems Constitutional: denies: Fever, Chills Eyes: reports: Loss of vision Ears: denies: Loss of hearing Cardiac: denies: Chest pain / pressure Respiratory: denies: Dyspnea GI: denies: Abdominal Pain Musculoskeletal: reports: Neck pain Neurologic: reports: Headache. denies: Generalized weakness, Focal weakness, Numbness, Difficulty speaking, Head injury Endocrine: denies: Easy bruising / bleeding Immunocompromised: denies: Immunocompromised PD PAST MEDICAL HISTORY - Past Medical History Cardiovascular: Hypertension Respiratory: None Neuro: None Endocrine/Autoimmune: Type 2 diabetes, Other GI: GERD, Other : Other HEENT: None Psych: Anxiety Musculoskeletal: Chronic back pain, Other Derm: None - Past Surgical History Past Surgical History: No General: Bowel surgery Ortho: Other HEENT: Tonsil/Adenoidectomy - Present Medications Home Medications: Ambulatory Orders Medication Instructions Recorded Confirmed HYDROcod/ACETAM 5/325 [[place] 5/325] 1 each PO TID PRN 08/09/13 04/16/18 Insulin Lispro [Humalog] 72 unit [id number] DAILY 08/09/13 04/16/18 Aspirin [Aspir 81] 81 mg PO DAILY 12/12/13 04/16/18 Ergocalciferol [Vitamin D2] 50,000 units PO TH@0900 04/08/18 04/16/18 Gabapentin 300 mg PO QPM 04/08/18 04/16/18 Lisinopril 10 mg PO DAILY 04/08/18 04/16/18 Sertraline HCl 100 mg PO DAILY 04/08/18 04/16/18 - Allergies Allergies/Adverse Reactions: Allergies Allergy/AdvReac Type Severity Reaction Status Date / Time azithromycin AdvReac Nausea Verified 04/20/18 08:07 - Social History Does the pt smoke?: No Smoking Status: Never smoker Does the pt drink ETOH?: Yes Does the pt have substance abuse?: Yes - Immunizations Immunizations are current?: Yes - POLST Patient has POLST: No PD ED PE NORMAL - Vitals Vital signs reviewed: Yes - General General: Alert and oriented X 3 - HEENT HEENT: Atraumatic, PERRL, EOMI, Other (no field cut, nl EOMI, pupils 2 and reactive and symm) - Neck Neck: Supple, no meningeal sign - Cardiac Cardiac: RRR, No murmur - Respiratory Respiratory: No respiratory distress - Abdomen Abdomen: Soft, Non tender - Derm Derm: Normal color - Neuro Neuro: Alert and oriented X 3, tobacco conditioner 2-12 intact, No motor deficit, No sensory deficit, Normal speech Eye Opening: Spontaneous Motor: Obeys Commands Verbal: Oriented GCS Score: 15 Results - Vitals Vitals: Vital Signs - 24 hr 04/20/18 04/20/18 04/20/18 05:54 08:05 08:45 Temperature 36.9 C Heart Rate 86 79 79 Respiratory 20 18 16 Rate Blood Pressure 177/85 H 163/94 H 145/81 H O2 Saturation 100 100 100 Oxygen O2 Source Room air - EKG (time done) 0927 Rate: Rate (enter#) (78) Rhythm: NSR [place]: Normal Intervals: Normal CT Ischemia: Normal ST segments - Labs Labs: Laboratory Tests 04/20/18 04/20/18 08:18 08:18 WBC 9.7 RBC 2.58 L Hgb 8.3 L Hct 24.1 L MCV 93.5 MCH 32.1 H MCHC 34.4 RDW 13.4 Plt Count 253 MPV 8.4 Neut # (Auto) Not Reportable Lymph # (Auto) Not Reportable [place] # (Auto) Not Reportable Eos # (Auto) Not Reportable Baso # (Auto) Not Reportable Absolute Nucleated RBC Not Reportable Total Counted 100 Band Neuts % (Manual) 0 Abnorm Lymph % (Manual) 0 Metamyelocytes % 1 H Myelocytes % 1 H Nucleated RBC % Not Reportable Neutrophils # (Manual) 7.3 H Lymphocytes # (Manual) 1.6 Monocytes # (Manual) 0.5 Eosinophils # (Manual) 0.1 Basophils # (Manual) 0.0 Differential Comment MANUAL DIFFERENTIAL RBC Morph Micro Appear 1+ POLYCHROMASIA Sodium 140 Potassium 2.7 L Chloride 104 Carbon Dioxide 27 Anion Gap 9.0 BUN < 5 L Creatinine 0.7 Estimated GFR (MDRD) 148 Glucose 145 H Calcium 8.3 L - Rads (name of study) CTH Radiology: See rad report (no acute process) PD MEDICAL DECISION MAKING - ED course ED course: sx now resolved - concerning for TIA CTH neg EKG NSR H/H better than recent dc K repleted d/w hospitalist at 0915 - will admit but req I speak to neuro first [facility] agrees with plan to admit for MRI MRA head neck echo tele serial neuro exams and does not fele pt needs transfer at this time as his sx have cleared Departure - Departure Disposition: ED Place in Observation Clinical Impression: TIA (transient ischemic attack) NIHSS - Time Time: 08:00 - Level of Consciousness Level of consciousness: (0) Alert, Keenly responsive LOC Questions: (0) Answers both Q's correct LOC Commands: (0) Performs both correctly - Gaze Best Gaze: (0) Normal - Visual Visual: (0) No loss - Facial Palsy Facial Palsy: (0) Normal, symmetrical movement - Motor Arms (both separate) Motor Arm (right): (0) No drift Motor Arm (left): (0) No drift - Motor Legs (both separate) Motor Leg (right): (0) No drift Motor Leg (left): (0) No drift - Limb Ataxia Limb Ataxia: (0) Absent - Sensory Sensory: (0) Normal - Best Language Best Language: (0) No aphasia - Dysarthria Dysarthria: (0) Normal - Extinction and Inattention (formally neg Extinction and inattention: (0) No abnormality - Total Score/Results Total Score/Result: 0
[2018-04-20 08:45] LABS: BASOPHILS % (AUTO) 0.7 %; EOSINOPHILS % (AUTO) 0.7 %; HGB - HEMOGLOBIN 8.3 g/dL (14.0-18.0); LYMPHOCYTES % (AUTO) 20.3 %; MEAN CORPUSCULAR HEMOGLOBIN 32.1 pg (27.0-31.0); MEAN CORPUSCULAR HGB CONC 34.4 g/dL (32.0-36.0); MEAN CORPUSCULAR VOLUME 93.5 fL (80.0-94.0); MEAN PLATELET VOLUME 8.4 fL (7.4-11.4); MONOCYTES % (AUTO) 7.7 %; NEUTROPHILS % (AUTO) 70.6 %; PLT - PLATELET COUNT 253 10^3/uL (130-450); RED BLOOD COUNT 2.58 10^6/uL (4.70-6.10); RED CELL DISTRIBUTION WIDTH 13.4 % (12.0-15.0); WHITE BLOOD COUNT 9.7 x10^3/uL (4.8-10.8)
[2018-04-20 08:48] LABS: ABNORMAL LYMPHS % (MANUAL) 0 %; BAND NEUTROPHILS % (MANUAL) 0 %
[2018-04-20 08:58] LABS: BUN - BLOOD UREA NITROGEN < 5 mg/dL (6-20); CALCIUM 8.3 mg/dL (8.5-10.3); CARBON DIOXIDE - CO2 27 mmol/L (21-32); CHLORIDE 104 mmol/L (101-111); CREATININE 0.7 mg/dL (0.6-1.2); GFR - MDRD 148 (>89); GLUCOSE 145 mg/dL (70-100); SODIUM 140 mmol/L (135-145)
[2018-04-20 09:09] LABS: DIFFERENTIAL COMMENT MANUAL DIFFERENTIAL; EOSINOPHILS # (MANUAL) 0.1 10^3/uL (0-0.7); LYMPHOCYTES # (MANUAL) 1.6 10^3/uL (1.5-3.5); LYMPHOCYTES % (MANUAL) 17 %; METAMYELOCYTES % (MANUAL) 1 %; MONOCYTES # (MANUAL) 0.5 10^3/uL (0.0-1.0); MYELOCYTES % (MANUAL) 1 %; NEUTROPHILS # (MANUAL) 7.3 10^3/uL (1.5-6.6); NEUTROPHILS % (MANUAL) 75 %
[2018-04-20] MEDS ORDERED: POTASSIUM CHLORIDE 20 MEQ TABLET PO STA (09:17)
[2018-04-20] MEDS ORDERED: ACETAMINOPHEN 325 MG TABLET PO PRN (10:46)
[2018-04-20] MEDS ORDERED: ALPRAZolam 0.25 MG TABLET PO ONE (12:04)
[2018-04-20] MEDS: INSULIN ASPART 300 UNIT/3 ML PEN SUBQ SCH ×3 (12:10→21:57)
[2018-04-20] MEDS ORDERED: HYDROmorphone 2 MG/ML VIAL IVP PRN (13:12)
[2018-04-20] MEDS: SODIUM CHLORIDE FLUSH 0.9% 10 ML SYRINGE IVP SCH ×2 (14:05→23:50)
[2018-04-20] MEDS ORDERED: LORazepam 2 MG/ML VIAL IVP ONE (14:28)
[2018-04-20] MEDS ORDERED: LORazepam 2 MG/ML VIAL IVP PRN (15:59)
[2018-04-20] MEDS ORDERED: FLUMAZENIL 0.1 MG/1 ML 5 ML MDV IVP PRN (16:02)
[2018-04-20] MEDS: SODIUM CHLORIDE FLUSH 0.9% 10 ML SYRINGE IVP PRN ×2 (17:10→17:12)
[2018-04-20] MEDS: LORazepam 2 MG/ML VIAL IVP PRN ×2 (17:12→17:15)
--- NOTE | 2018-04-20 18:45 | MRI Report ---
Reason: TIA, vision loss Procedure Date: 04/20/2018 Accession Number: [id number] / [id number] Procedure: MRI - Brain W/O CPT Code: FULL RESULT: EXAM: MRI BRAIN WITHOUT CONTRAST EXAM DATE: 04/20/2018 06:13 PM. CLINICAL HISTORY: TIA, vision loss. Severe headaches. COMPARISON: BRAIN ANGIO W/O 04/20/2018 2:30 PM HEAD W/O 04/20/2018 6:54 AM. TECHNIQUE: Sagittal T1, axial DWI and axial T1, T2, gradient echo and T2 FLAIR. FINDINGS: Brain Volume: Normal for age. Parenchyma/Dura: No mass, acute infarct or hemorrhage. No white matter lesions identified. Ventricles/Cisterns: No hydrocephalus. No abnormal extra-axial fluid collection or hemorrhage. Orbits: Symmetric and unremarkable. Sinuses: Mild maxillary and ethmoid sinus mucosal thickening. No air-fluid level. Clear mastoids. Bones: No focal pathologic appearing marrow signal changes. Other: None. IMPRESSION: 1. No MRI evidence for acute intracranial abnormality. 2. Bilateral mild maxillary and ethmoid sinus mucosal thickening. RADIA
--- NOTE | 2018-04-20 18:51 | MRI Report ---
Reason: TIA, vision loss Procedure Date: 04/20/2018 Accession Number: [id number] / [id number] Procedure: MRI - Angio Brain W/O (MRA) CPT Code: FULL RESULT: EXAM MRA BRAIN EXAM DATE: 04/20/2018 06:14 PM. CLINICAL HISTORY: History of TIA, vision loss and severe headache. COMPARISON: None. TECHNIQUE: Multiplanar, multisequence MRA sequences of the brain were performed. Other: None. Post-processing: Multiplanar 3D MIP reconstructions. IV Contrast: None. FINDINGS: Proximal bilateral middle cerebral artery flow signal loss. This is more severe on the right than the left. This suggests the possibility of mild to moderate left and moderate to severe right side stenosis of the proximal segments of the middle cerebral arteries. Imaging artifact may also contribute to this loss of arterial flow signal. Both distal internal carotid arteries are patent but the terminal segment of the right intradural vertebral artery appears to taper and become stenotic near its intracranial bifurcation. Indistinct contours of the proximal anterior cerebral artery segments, this is indeterminate and may be from imaging artifact or stenosis. The partially visualized proximal [place] A2 segments appear grossly intact. Unremarkable appearance of the distal MCA M1 segments without evidence for MCA branch occlusion. No intracranial vertebrobasilar insufficiency. Congenitally dominant left vertebral artery. The posterior cerebral arteries appear to be patent and there is flow signal in a right posterior communicating artery. There does appear to be some flow signal loss at the right MACHINING MANAGER P1-P2 junction and the right posterior communicating artery origin is ill-defined. It is unclear whether the loss of flow signal is from imaging artifact, radial arterial luminal stenosis or both. Unremarkable appearance of the left MACHINING MANAGER. No evidence for aneurysm of the [place]. Patent anterior communicating artery. No evidence for [place] aneurysm. IMPRESSION: Loss of arterial flow signal is present at the origins of both middle cerebral arteries right greater than left, at the intracranial right ICA terminus and at both proximal anterior cerebral artery segments. Proximal right MACHINING MANAGER flow signal loss is also suggested. These findings are nonspecific. Pathologic arterial stenosis cannot be ruled out. Imaging artifact may contribute to this appearance. Follow-up with head CTA is suggested for clarification. RADIA
[2018-04-20] MEDS ORDERED: POTASSIUM CHLORIDE 20 MEQ TABLET PO SCH (19:01)
--- NOTE | 2018-04-20 20:03 | PROVIDER PROGRESS NOTE ---
Hospitalist Cross-cover Note - Cross-Cover Note Cross-Cover Note: Documentation note for conversation with Dr. Michel Cabrera, neurologist collections curator at [facility], who was kind enough to call me back to provide recommendations for this patient. I called to discuss the patient's case and in particular updates the results of the MRI brain and MRA brain. Given the findings that I read to Dr. Cabrera, as well as the presentation of the patient's history, he suggests that the recommendation for a follow-up CT angiogram of the head is that because sometimes an MRI will overcall stenosis of cerebral arteries and the CT angiogram of the head may help to further illustrate any true stenosis. His recommendation is to allow contrast washout overnight and order the CT angiogram for tomorrow morning, and depending on the results if there is significant stenosis this may suggest something like a Ochoa Ochoa syndrome, and it may warrant a referral to [facility] tomorrow. On the other hand, if the CT angiogram of the head is relatively unremarkable with respect to stenosis, and his symptoms remain completely resolved, a urgent transfer may not be necessary but he does still recommend referral to an outpatient neurologist such as at the [facility]. With respect to blood pressure he recommended permissive hypertension as would be managed in a TIA or a stroke, as well as optimizing other risk factors such as his lipids, diabetes, and keeping him on a 81 mg aspirin daily. This information will be passed on to the morning team and an order will be placed for the CT angiogram and a fasting lipid panel.
[2018-04-20] MEDS ORDERED: METOPROLOL 5 MG/5 ML VIAL IVP PRN (20:04)
--- NOTE | 2018-04-20 20:05 | HISTORY & PHYSICAL EXAMINATION ---
DATE OF SERVICE: 04/20/2018 Physician: Eli Richey MD HISTORY OF PRESENT ILLNESS: This is a 43-year-old black male who has been admitted twice over this past month: Several weeks ago, he was admitted with severe rectal pain and diagnosed with a rectal abscess that needed I and D, he was sent home with antibiotics. He was then admitted again just several days later with rapid bright red blood loss per rectum and underwent colonoscopy that showed bleeding internal and external hemorrhoids. He received blood transfusions during that admission. He also has a history of diabetes on an insulin pump. There is a past history also of hypertension and hyperlipidemia and morbid obesity. The patient presents now with complaints of vision loss: He states he awoke and had nearly complete vision loss, only being able to "see lights and shadows". The symptoms lasted about 2 hours. It is unclear if this was unilateral or bilateral according to the ER notes, but to me he said it was bilateral. He presented to the emergency room and had improving symptoms and by the time he was placed in Observation status, his symptoms have resolved. There was no other neurologic complaint whatsoever. He has been compliant with his medications. The associated symptoms are that he developed a right-sided headache as the vision was improving. He had a head CT, which was negative and he is being placed in Observation for further evaluation of his neurologic symptoms. PAST MEDICAL HISTORY: Diabetes on insulin, hypertension, hyperlipidemia, obesity, recent rectal abscess requiring drainage and antibiotics, recent GI bleed requiring transfusion and bleeding found to be from hemorrhoids. ALLERGIES: AZITHROMYCIN. MEDICATIONS 1. Insulin pump. 2. Sertraline 100 mg daily. 3. Lisinopril 10 mg daily. 4. [place] t.i.d. p.r.n. 5. Gabapentin 300 mg every night. 6. Vitamin D2 50,000 units once a week. 7. A baby aspirin daily. REVIEW OF SYSTEMS: A comprehensive review of system was performed and the pertinent positives are in the HPI, the rest are negative. SOCIAL HISTORY: The patient is an ex-smoker, drinks alcohol, and uses no illicit drugs. FAMILY HISTORY: No inherited diseases. PHYSICAL EXAMINATION GENERAL: Mildly overweight white male. He is in no distress. VITAL SIGNS: Blood pressure 150/83, pulse is in the 70s-100s, in sinus rhythm. He is afebrile. Room air saturation 99%. HEENT: Unremarkable. Oral mucosa is moist. NECK: Without JVD or carotid bruits. LUNGS: Clear. HEART: Sounds normal. ABDOMEN: Soft, obese, nontender. EXTREMITIES: No edema. No clubbing or cyanosis. NEUROLOGIC: Grossly intact, cranial nerves are grossly intact as well. IMAGING AND LABS: Sodium 140, potassium 2.7, BUN less than 5 and creatinine 0.7, glucose 145, magnesium 2.0. No liver tests were done. White blood count 9.7, hemoglobin 8.3, platelet count 253. The last hemoglobin before today was 7.9 and before that 6.7 when he required the transfusion. EKG: Normal sinus rhythm, LVH voltage. No acute ST or T-wave changes. CT of the head showed no evidence of acute intracranial abnormality. IMPRESSION 1. Transient ischemic attack, possible; however, this is bilateral not unilateral vision changes suggesting a systemic cause. 2. Diabetes mellitus on an Insulin pump. 3. Hypertension. 4. Hypokalemia. 5. History of rectal bleeding from hemorrhoids after rectal abscess. PLAN: Place the patient in Observation status, on telemetry, monitoring for atrial fibrillation. Obtain imaging with MRI of the brain and MRA of the brain and neck vessels. Obtain an Echo to rule out any cardiac source of embolus or a shunt. Consider evaluation for other sources of bilateral vision loss such as global brain hypoperfusion as with hypotension. Continue his aspirin, but no Plavix addition as of yet, since the symptoms are not consistent with a focal neurologic event. Check lipids and treat per guidelines in a diabetic. Use sliding scale insulin with fingerstick glucose checks and begin a carbohydrate controlled diet. CODE STATUS: FULL CODE. DEEP VENOUS THROMBOSIS PROPHYLAXIS: SCDs. ATTESTATION: The patient is expected to be discharged or transferred to another facility within 96 hours: Yes. cc: Yaritza Obrien PA-C TD: 04/20/2018 19:18 [facility]
[2018-04-20] MEDS ORDERED: GABAPENTIN 300 MG CAPSULE PO SCH (21:00)
[2018-04-21 05:56] LABS: BASOPHILS # (AUTO) 0.1 10^3/uL (0.0-0.1); EOSINOPHILS # (AUTO) 0.1 10^3/uL (0.0-0.7); HGB - HEMOGLOBIN 8.1 g/dL (14.0-18.0); LYMPHOCYTES # (AUTO) 1.5 10^3/uL (1.5-3.5); WHITE BLOOD COUNT 8.3 x10^3/uL (4.8-10.8)
[2018-04-21 06:14] LABS: CHOL/HDL RATIO 4.2 (<5.0); CHOLESTEROL 144 mg/dL; HDL CHOLESTEROL 34 mg/dL; LDL CHOLESTEROL,CALCULATED 88 mg/dL; LDL/HDL RATIO 2.6 (<3.6); VLDL CHOLESTEROL 22 mg/dL
[2018-04-21 06:15] LABS: INR 1.2 (0.8-1.2)
[2018-04-21 06:20] LABS: BASOPHILS % (AUTO) 0.7 %; EOSINOPHILS % (AUTO) 1.4 %; LYMPHOCYTES % (AUTO) 18.3 %; MEAN CORPUSCULAR HEMOGLOBIN 33.1 pg (27.0-31.0); MEAN CORPUSCULAR HGB CONC 34.9 g/dL (32.0-36.0); MEAN CORPUSCULAR VOLUME 94.9 fL (80.0-94.0); MEAN PLATELET VOLUME 8.6 fL (7.4-11.4); MONOCYTES # (AUTO) 0.6 10^3/uL (0.0-1.0); MONOCYTES % (AUTO) 7.6 %; NEUTROPHILS # (AUTO) 5.9 10^3/uL (1.5-6.6); PLT - PLATELET COUNT 269 10^3/uL (130-450); RED BLOOD COUNT 2.44 10^6/uL (4.70-6.10); RED CELL DISTRIBUTION WIDTH 13.8 % (12.0-15.0)
[2018-04-21 06:23] LABS: BUN - BLOOD UREA NITROGEN < 5 mg/dL (6-20); CALCIUM 8.1 mg/dL (8.5-10.3); CARBON DIOXIDE - CO2 24 mmol/L (21-32); CHLORIDE 106 mmol/L (101-111); CREATININE 0.6 mg/dL (0.6-1.2); GFR - MDRD 177 (>89); GLUCOSE 222 mg/dL (70-100); SODIUM 137 mmol/L (135-145)
[2018-04-21 06:40] LABS: PLATELET ESTIMATE, MANUAL NORMAL (130-450,000) (NORMAL); RBC MORPHOLOGY (MULTIPLE) NORMAL APPEARANCE (NORMAL)
[2018-04-21 06:41] LABS: DIFFERENTIAL COMMENT MANUAL=AUTO DIFF
[2018-04-21] MEDS ORDERED: PANTOPRAZOLE 40 MG TABLET PO SCH (07:00)
[2018-04-21] MEDS ORDERED: IOVERSOL 320 100 ML VIAL IVP ONE ×3 (07:26→17:10)
[2018-04-21] MEDS ORDERED: INSULIN LISPRO SUBQ SCH (09:00)
[2018-04-21] MEDS ORDERED: ASPIRIN EC 81 MG TABLET PO SCH (09:00)
[2018-04-21] MEDS ORDERED: POLYETHYLENE GLYCOL 3350 17 GM PACKET PO SCH ×2 (09:00)
[2018-04-21] MEDS ORDERED: SERTRALINE 50 MG TABLET PO SCH (09:00)
[2018-04-21] MEDS: INSULIN ASPART 300 UNIT/3 ML PEN SUBQ SCH (09:33)
[2018-04-21] MEDS: SODIUM CHLORIDE FLUSH 0.9% 10 ML SYRINGE IVP SCH (09:34)
[2018-04-21] MEDS ORDERED: INSULIN ASPART 300 UNIT/3 ML PEN SUBQ SCH (13:10)
--- NOTE | 2018-04-21 14:07 | CT Report ---
Reason: Eval for cerebral artery stenois - c/w MRA brain Procedure Date: 04/21/2018 Accession Number: [id number] / [id number] Procedure: CT - Head Angio CPT Code: FULL RESULT: CT HEAD WITHOUT AND WITH CONTRAST AND CT ANGIOGRAM HEAD INDICATION: 43-year-old male. Brain MRI performed in evaluation for TIA with vision loss demonstrates loss of arterial flow signal at origins of both MCAs, at the right ICA terminus and at both proximal anterior cerebral artery segments. CT angiography has been requested in further assessment. TECHNIQUE: Head CT Sequential 5 mm axial images were obtained through the brain, prior to and following the CT angiogram. CT Angiogram Head 80 cc of [id number]-300 contrast was injected at a rapid rate through a large bore antecubital intravenous catheter. The head was scanned helically during arterial phase. Data was reconstructed in 2.5 mm axial images. In addition, MIP reconstructions have been generated in multiple projections to allow better assessment of the intracranial arteries. In accordance with CT protocol optimization, one or more of the following dose reduction techniques were utilized for this exam: automated exposure control, adjustment of mA and/or KV based on patient size, or use of iterative reconstructive technique. COMPARISON: MR angiogram 04/20/2018. FINDINGS: Head CT There is mild generalized prominence of the cerebral cortical sulci. Ventricular size is normal. There is excessive quantum mottle artifact) on brain window images decreasing the sensitivity for detection of subtle abnormality such as acute ischemic infarction. Grossly attenuation of cortex and white matter appears normal. No intracranial hemorrhage or abnormal extra-axial fluid collection. On the postcontrast sequence, no enhancing space-occupying mass lesion is demonstrated. There appears to be normal intravascular contrast enhancement in the dural venous sinuses and deep venous structures. The degree of intra-arterial contrast enhancement is not optimal; however, overall this study appears to be of diagnostic quality. Anterior circulation: The internal carotid arteries appear to be widely patent bilaterally. In particular, no significant stenosis is demonstrated at the right ICA terminus. No ICA aneurysm is identified. The A1 segment of the right anterior cerebral artery is hypoplastic but appears to be patent throughout without focal stenosis. There is a dominant left A1 segment. An anterior communicating artery is demonstrated. There is filling of the A2 and distal MARIANNA branches bilaterally. Evaluation is limited due to artifact; however, no obvious hemodynamically significant stenosis is seen involving main MARIANNA branches. The MCAs are unremarkable. In particular, no stenosis is identified involving the proximal M1 segment for right or left MCA. In addition, no aneurysm is seen. There is no obvious occlusion or hemodynamically significant stenosis affecting main branches of either MCA. There appear to be a similar number of opacified M3 and M4 branches bilaterally. Posterior circulation: The right vertebral artery is hypoplastic but patent. The right PICA is small but patent. There is minor calcified plaque in the mid V4 segment for dominant left vertebral artery. No significant associated stenosis. The left PICA appears patent. The basilar artery appears patent throughout. The superior cerebellar arteries and posterior cerebral arteries appear patent. The P1 segment of the right posterior cerebral artery is mildly hypoplastic. There is a moderate size right posterior communicating artery that supplies the P2 and distal right HVAC RESIDENTIAL SERVICE TECHNICIAN branches. This represents a known anatomical variant ( type right HVAC RESIDENTIAL SERVICE TECHNICIAN). No definite left posterior communicator is demonstrated on CTA; however, a small left-sided posterior communicating artery is seen on the patient's recent MRA. No aneurysms are demonstrated arising from the basilar artery trunk or apex. IMPRESSION: Head CT No acute intracranial pathology. CT Angiogram Head The degree of intra-arterial contrast enhancement is not optimal; however, this examination does appear to be of diagnostic quality. In particular, the CTA confirms that the apparent multifocal stenoses demonstrated on recent MRA represent artifact rather than true arterial pathology. There is no evidence of occlusion or hemodynamically significant stenosis affecting the main branches of the anterior or posterior circulations on this intracranial CT angiogram.
--- NOTE | 2018-04-21 15:14 | Discharge Plan ---
Discharge Plan Disposition: 01 Home, Self Care Condition: Stable Diet: Diabetic Activity Restrictions: Activity as Tolerated Instruction Topics: Diabetic Retinopathy Evaluate Eyes Additional Instructions or Follow Up instructions: You were placed in Observation status to evaluate vision loss of both eyes. The MRI/MRA findings were re-checked by CT scanning and that was felt to be an artifact or over-call. Please see an High School Sports Coach to evaluate that further. Resume all your pre-hospital medications. If you have new or worsening symptoms, come to the ER. No Smoking: If you smoke, Please STOP! Call for help. Follow-up with: Yaritza Obrien PA [Primary Care Provider] -
[2018-04-21 15:35] VITALS: BP 140/86
--- NOTE | 2018-04-22 21:11 | DISCHARGE SUMMARY ---
Physician: Eli Richey MD DATE OF ADMISSION: 04/20/2018 DATE OF DISCHARGE: 04/21/2018 HISTORY OF PRESENT ILLNESS: This is a 43-year-old black male who has a history of diabetes on an insulin pump, has had recent admission here 2 other times this month, once with rectal abscess requiring incision and drainage and antibiotics, following that he had bright red blood per rectum, required a transfusion for symptomatic anemia, and scoping found bleeding internal and external hemorrhoids. He now presents with awakening and having loss of vision. This was nearly complete vision loss, only being able to see "lights and shadows," and it lasted for about 2 hours. As it was resolving, he developed a right- sided headache. In the emergency room, his neurologic exam was benign, and they called tele-stroke. The On-call Neurologist advised that he be placed in Observation for imaging to look for a source of possible embolization with this possible TIA diagnosis. His head CT done in the emergency room showed no bleeding and no acute findings. HOSPITAL COURSE AND DISCHARGE DIAGNOSES 1. Sudden vision loss. The patient underwent an Echo, which showed no intracardiac clot or shunts. He underwent brain and neck MRI and MRA, and the MRA was significant for the following: Proximal bilateral middle cerebral artery flow signal loss, more severe on the right than the left, suggesting mild to moderate bilateral stenosis of the proximal segments of the middle cerebral artery. Both distal internal carotid arteries are patent, but the terminal segment of the right vertebral artery appears to taper and become stenotic. He had another phone call placed to a different on-call Neurologist who advised that he undergo CTA of the brain with contrast because the MRA might be over- calling his various abnormalities. The brain CTA was read as having no acute intracranial pathology, and "apparent multifocal stenoses demonstrated on recent MRA represent artifact rather than true arterial pathology." There were no areas of occlusion or stenoses. Therefore, this patient's sudden bilateral visual loss is unexplained. The symptoms did not recur while here. He was advised to be seen by an Street Sweeper and a Neurologist for further evaluation and management. Please note the patient has claustrophobia, and he required sedatives to be able to undergo the various MRI and MRA exams. 2. Diabetes. The patient was on a sliding scale insulin and carb-controlled diet while here; his insulin pump was resumed at the time of discharge. 3. History of rectal bleeding. The patient had minimal soreness in the area of the abscess and the bleeding, but no further trouble with those symptoms while here. 4. Hypertension. The patient was kept on his blood pressure medications while here. 5. Hypokalemia. The patient required potassium replacement while here. LABS AND IMAGING: Reviewed and summarized. ALLERGIES: AZITHROMYCIN. DISCHARGE MEDICATIONS 1. Baby aspirin daily. 2. Vitamin D2 at 50,000 units once a week. 3. Gabapentin 300 mg daily. 4. [place] t.i.d. p.r.n. pain. 5. Humalog insulin on his pump. 6. Lisinopril 10 mg daily. 7. Sertraline 100 mg daily. CONDITION AT DISCHARGE: Stable. PHYSICAL EXAMINATION VITAL SIGNS: Blood pressure 140/86, pulse of 90-100 in sinus rhythm, afebrile, room air saturation 100%. HEENT: Unremarkable. No vision loss. NECK: Without JVD or carotid bruits. CHEST: Clear. HEART: Sounds normal. No murmur. ABDOMEN: Soft, obese, normal bowel sounds, nontender. EXTREMITIES: No edema. NEUROLOGIC: Grossly intact. FOLLOWUP: He was advised to see his PCP as previously planned, and to see Ophthalmology within a week, and to consider further Neurology evaluation as well. CODE STATUS: FULL CODE. Time required to complete this entire discharge: 30 minutes. cc: Yaritza Obrien PA-C TD: 04/22/2018 20:31 MTDD
[2018-04-27] MEDS ORDERED: ERGOCALCIFEROL 50,000 UNIT CAPSULE PO SCH (09:00)
== END 2018-04-21 16:05 | disposition home or self-care (01) ==
LOC: ED 05:44 → MS2 10:46
PROVIDERS: ADMIT Internal Medicine; ATTEND Internal Medicine
DX: H53.133 Sudden visual loss, bilateral (principal); R51 Headache; M54.2 Cervicalgia; I10 Essential (primary) hypertension; E11.9 Type 2 diabetes mellitus without complications; E78.5 Hyperlipidemia, unspecified; F41.9 Anxiety disorder, unspecified; F40.240 Claustrophobia; E87.6 Hypokalemia; E66.01 Morbid (severe) obesity due to excess calories; K64.8 Other hemorrhoids; K64.4 Residual hemorrhoidal skin tags; Z79.4 Long term (current) use of insulin; Z79.82 Long term (current) use of aspirin; Z79.899 Other long term (current) drug therapy; Z96.41 Presence of insulin pump (external) (internal); Z87.19 Personal history of other diseases of the digestive system; Z68.38 Body mass index [BMI] 38.0-38.9, adult; Z87.891 Personal history of nicotine dependence
CPT/HCPCS: 36415; 70450; 70496; 70544; 70551; 80048; 80061; 83735; 84132; 85025; 85610; 93005; 93306; 96374; 96375; 96376; 99283; 99284; A9270; G0378; J1170; J2060; Q9967; 83721

== ENCOUNTER 2018-11-13 13:58 | Outpatient (CLI) | payer OTHER | END 2018-11-13 13:59 | disposition home or self-care (01) | LOC: SC 13:58 | PROVIDERS: ATTEND Internal Medicine Pulmonary Disease | DX: G47.10 Hypersomnia, unspecified (principal); G47.8 Other sleep disorders; R06.83 Snoring; R06.81 Apnea, not elsewhere classified; E66.9 Obesity, unspecified; Z68.39 Body mass index [BMI] 39.0-39.9, adult | CPT/HCPCS: 99203; 99212 ==

== ENCOUNTER 2018-12-10 19:26 | Outpatient (CLI) | payer OTHER | END 2018-12-10 19:27 | disposition home or self-care (01) | LOC: SC 19:26 | PROVIDERS: ATTEND Internal Medicine Pulmonary Disease | DX: G47.33 Obstructive sleep apnea (adult) (pediatric) (principal); G47.61 Periodic limb movement disorder; E66.9 Obesity, unspecified; Z68.39 Body mass index [BMI] 39.0-39.9, adult | CPT/HCPCS: 95810 ==

== ENCOUNTER 2019-01-24 15:12 | Outpatient (CLI) | payer OTHER ==
--- NOTE | 2019-01-24 16:14 | SLEEP CARE CONSULTATION ---
Information from patient questionnaire entered by Pricila Fitzgerald. I have reviewed and concur with the information entered by Pricila Fitzgerald. This document represents the service I personally performed and the decisions made by me, Misti Krause RN, MSN, OPHTHALMIC NURSE. History of Present Illness Initial [place] Sleepiness Scale score: 15 Current [place] Sleepiness Scale score: 14 Additional HPI information: TELLY BETHEA JR returns for follow up of the recently performed polysomnography and was informed of the polysomnography findings. I explained the pathophysiology behind obstructive sleep apnea. We then spent quite a bit of time discussing different treatment options. For mild obstructive sleep apnea, surgery and oral appliance are alternatives to nasal CPAP therapy but in moderate or severe cases, nasal CPAP is the most effective and reliable treatment. I reviewed the impact of weight changes on sleep apnea and strongly recommended losing weight. After some discussion, the patient opted to go with the nasal CPAP therapy. Nasal autoCPAP set at [id number] will be ordered as preferred method of treatment initiation after rationale explained. A manual titration study will be ordered if unable to find optimal pressure with office adjustments. I explained how CPAP machine works with sample devices Respironics Dreamstation and [employer] [id number] and what to expect when using the machine. Using CPAP every night in order to get used to it was emphasized. Patient advised to put CPAP mask on before getting into bed so as not to fall asleep without CPAP. To assist acclimation to CPAP use, it could also be used for a short time during day while reading or watching TV. The patient was instructed to call the CPAP supplier to discuss any mechanical problem that may occur. If the mask given is uncomfortable or is difficult to keep on through the night even with adjustment, contact the CPAP supplier as many will replace with another mask style if notified before 30 days. If snoring or perceives is not getting enough air or too much air from the machine, notify this office. [facility] patient education PAP tips reviewed and given to patient. Patient counseled not drink alcohol less than 4 hours before bedtime as it can increase snoring and apnea. Patient was cautioned about risks of drowsy driving until sleepiness symptoms resolve. Patient denies drowsy driving. [facility] patient education on snoring and sleep apnea given and reviewed. Sleep Study - Polysomnography Polysomnography findings: The quality of the study is good. The patient had slightly reduced sleep efficiency due to frequent awakenings after the sleep onset. The sleep architecture was abnormal for sleep fragmentation and reduced amount of time spent in REM sleep. Respiratory monitoring showed moderate obstructive sleep apnea-hypopnea (AHI = 21.0) associated with frequent arousals, oxyhemoglobin desaturation but no significant hypoxia (suzette oxygen saturation of 90%). The respiratory events occurred mainly during supine sleep (supine AHI = 61.5; non-supine = 6.61). Snore was moderate in intensity. There was severe periodic leg movement of sleep contributing to the sleep fragmentation. Cardiac rhythm was normal sinus rhythm with occasional premature ventricular contractions. No abnormal behavior (parasomnia) observed during the night. Allergies and Home Medications Known drug allergies: Yes (azithromycin) Home medication list reviewed: Yes Allergy and home medication list: Medication Name (generic/name brand) Strength & Dosage Sertraline HCL 100mg tab one daily Lisinopril 10mg tab one daily Alprazolam 1mg tab one three times daily Fluoxetine 20mg cap one every morning Gabapentin 300mg cap one daily Humalog 100 unit/ml Solution 52.5 U per insulin pump and 2 U per SS Hydrocodone/Acetaminophen 5-325mg tab 2-3 daily as needed Benonatate 200mg cap one three times daily Vitamin D2 50,000 IU cap one weekly Esomeprazole Magnesium DR 40mg cap one daily Review of Systems Review of systems same as previous: Yes Physical Exam Blood Pressure: 130/80 Cuff size: long Heart Rate: 80 O2 Saturation: 98 Height: 6 ft 0.3 in Weight (kg): 292 lb Body Mass Index: 39.2 BMI Classification: Class 2 Impression and Plan 1. Obstructive Sleep Apnea-Hypopnea Syndrome, moderate, with lowest oxygen saturation of 90%. Obviously this is the cause of the patients symptoms of unrefreshed sleep, and excessive daytime sleepiness. Positive pressure therapy could benefit his hypertension, diabetes, gerd and anxiety. As mentioned above, the patient will be started on nasal autoCPAP therapy with pressure set at 4-15 cmH2O. A manual titration study will be completed if unable to find optimal treatment pressure with office adjustments. Compliance guidelines also reviewed. A copy of compliance guidelines will be given for reference at check out. Because the apnea is more severe supine, I instructed to avoid sleeping supine using pillow positioning until able to start CPAP use. 2. Periodic limb movement, severe, that did fragment patients sleep. Periodic limb movement of sleep (PLMS) is characterized by episodes of repetitive limb movements that occur during sleep and usually involve the lower limbs. The etiology is unknown but can be associated with restless leg syndrome (RLS), neuropathy, spinal cord diseases, kidney disease, rheumatological disorders, narcolepsy, obstructive sleep apnea, and REM sleep behavior disorder. Other factors that can increase PLMS and/or RLS are heredity and iron deficiency as reflected by a low serum ferritin level below 50 to 75mcg / L. Several medications can precipitate or aggravate PLMS such as selective serotonin re- uptake inhibitor antidepressants, tricyclic antidepressants, lithium, and dopamine receptor antagonists with the exception of bupropion. Caffeine can also aggravate PLMS and should be avoided. Sleep hygiene methods can also improve sleep as well as lifestyle changes such as regular exercise. Patient was advised further evaluation is indicated due to his history of diabetic neuropathy and frequent RLS symptoms. Iron deficiency anemia could be a secondary cause and should be ruled out before adding medication. In addition, consider changing his sertraline to bupropion for his anxiety. 3. Restless Leg Syndrome (RLS): as exhibited by an urge to move the legs and generally involves symptoms of uncomfortable and unpleasant sensations. Symptoms usually begin or worsen with inactivity or periods of rest such as sitting or lying down. These symptoms can be partially or completely relieved with movement such as stretching, walking or other movement. Generally they occur late in the evening or at bedtime. Sometimes the urge to move legs can be without discomfort or involve the arms and other parts of the body. Symptoms can cause patient concern and difficulty initiating sleep affecting daytime functioning. RLS is a sensorimotor disorder that can be hereditary and is often associated with PLMS periodic limb movement of sleep. It can also be secondary to mild iron deficiency (serum ferritin less than 50mcg - 75mcg/L) and magnesium deficiencies. Other medical conditions associated with RLS are narcolepsy,migraine headaches, chronic obstructive pulmonary disease, Parkinson disease, multiple sclerosis, peripheral neuropathy, obstructive sleep apnea, diabetes mellitus, fibromyalgia, rheumatoid arthritis, nocturnal eating, obesity, thyroid disease and heart disease and renal failure as well as mood disorders and ADHD. Also, medications such as most antidepressants with exception of bupropion, some centrally active dopamine receptor antagonists, sedating antihistamines such as Benadryl can precipitate or aggravate this disorder. Other factors that can increase symptoms are sleep deprivation, caffeine, nicotine and alcohol use. I recommend ruling out these conditions if not already done. [employer] Restless Leg syndrome pamphlet given and reviewed. * Nasal auto CPAP therapy, pressure at 4-15 cm H2O. [Respironics preferred]. * Attempt to lose weight. * Avoid alcohol consumption near bedtime. * Avoid supine sleep until using CPAP. * The patient is again cautioned about driving until sleepiness completely resolves. * Follow up with PCP for further evaluation of PLMS as also has RLS symptoms frequently and diabetic neuropathy. * Return one month after CPAP obtained. I will assess response to therapy and compliance at that time. I spent 100% of this 40 minute visit face to face with the patient with greater than 50% of this was spent time counseling the patient and coordination of care.
[2019-01-24 16:15] VITALS: BP 130/80
== END 2019-01-24 15:13 | disposition home or self-care (01) ==
LOC: SC 15:12
PROVIDERS: ATTEND Nurse Practitioner Family
DX: G47.33 Obstructive sleep apnea (adult) (pediatric) (principal); G47.61 Periodic limb movement disorder; G25.81 Restless legs syndrome
CPT/HCPCS: 99212; 99215

== ENCOUNTER 2019-03-26 13:22 | Outpatient (CLI) | payer OTHER ==
--- NOTE | 2019-03-26 14:21 | SLEEP CARE CONSULTATION ---
Information from patient questionnaire entered by Juanita Moya. I have reviewed and concur with the information entered by Juanita Moya. This document represents the service I personally performed and the decisions made by me, Misti Krause, RN, MSN, SUPERVISOR OPERATIONS. History of Present Illness Previous diagnosis: Moderate, Obstructive Sleep Apnea-Hypopnea Syndrome AHI: 21.0 Reason for follow up: first compliance Equipment type: CPAP Equipment obtained from: [employer] Mask style: Full face Mask brand: Resmed Backup mask available: No Last cushion change: not since set up CPAP Compliance Data - Data Reviewed with Patient Average duration of nightly device use: 1.55 Compliance rate %: 3.3 Current pressure setting (cmH2O): 4-15 Humidity settin Heated hose settin Average residual AHI: 5.7 Central apnea: 0.1 Obstructive apnea: 0.8 Hypopnea: 4.9 Average large leak: 40 sec Subjective Patient concerns: reports: aerophagia, mask discomfort (wonders if full face mask is increasing claustrophobia), nasal congestion (intermittent), dry mouth, nose, throat (with CPAP. He feels he breathes out of nose more and would like to try a nasal mask. ), other (feels like I'm not getting enough air when sleeps on his side. He wonders if it is due to the mask . The air was too warm so went to nonheated hose. ). denies: air blowing in eyes, mask leak noise, condensation in mask/hose, epistaxis Observed to snore while using device: No Current pressure setting perceived as: too low (when he is on his side even with mask) On therapy, patient: denies: drowsiness while driving Initial [place] Sleepiness Scale score: 15 Current [place] Sleepiness Scale score: 12 Allergies and Home Medications Known drug allergies: Yes Home medication list reviewed: Yes Allergy and home medication list: Lisinopril 10mg tab one daily Fluoxetine 20mg cap one every morning Gabapentin 300mg cap one daily Humalog 100 unit/ml Solution 52.5 U per insulin pump and 2 U per SS Hydrocodone/Acetaminophen 5-325mg tab 2-3 daily as needed Benonatate 200mg cap one three times daily Vitamin D2 50,000 IU cap one weekly Esomeprazole Magnesium DR 40mg cap one daily Review of Systems Review of systems same as previous: Yes Physical Exam Blood Pressure: 140/70 Cuff size: long Heart Rate: 103 O2 Saturation: 97 Height: 6 ft 0.25 in Weight: 297 lb Weight change since last visit: gained 5 pounds Body Mass Index: 39.9 BMI Classification: Obesity Class 2 Impression and Plan 1. Obstructive Sleep Apnea-Hypopnea Syndrome, moderate, with poor treatment compliance and slightly elevated residual AHI. On CPAP therapy, the patient has noted no change. However, he has not been able to wear his mask very long due to feeling of claustrophobia and air hunger. Thus I will increase his autoCPAP pressure to [id number]. He is to contact me if the pressure change is uncomfortable. The claustrophobia seems to be from the warmth of the air and size of the mask. Thus he is advised to keep his heated hose off and only add if condensation. The humidity can be adjusted as needed to reduce dryness symptoms. I also showed him sample nasal masks and fitted him with his choice of the Wisp nasal mask. I placed this on his prescription so can get proper replacement parts. A chinstrap fitting was also ordered if needed. He is encouraged to acclimate to mask by using while watching TV and / or reading before bedtime a short time daily. Patient's apnea severity and rationale for treatment to reduce apnea, improve sleep quality and reduce cardiovascular and cerebrovascular events was reviewed. I also reviewed the benefit of consistent device use of CPAP for hypertension, diabetes, anxiety. Since his apnea is more severe supine, he is advised to avoid supine sleep if unable to use CPAP. * * Change CPAP pressure to 8-12 cmH2O * Try Wisp nasal mask - large * Consider CPAP pillow * Only add heated hose if condensation. * Notify me if snoring with mask or feeling that the pressure is too much or too little * Attempt to lose weight * Return for follow up in 1-2 months , or sooner if concerns arise I spent 100% of this 30 minute visit face to face with the patient with greater than 50% of this was spent time counseling the patient and coordination of care.
[2019-03-29 17:21] VITALS: BP 140/70
== END 2019-03-26 13:23 | disposition home or self-care (01) ==
LOC: SC 13:22
PROVIDERS: ATTEND Nurse Practitioner Family
DX: G47.33 Obstructive sleep apnea (adult) (pediatric) (principal); E66.9 Obesity, unspecified; Z68.39 Body mass index [BMI] 39.0-39.9, adult
CPT/HCPCS: 99212; 99214

== ENCOUNTER 2019-07-02 13:35 | Outpatient (CLI) | payer OTHER ==
[2019-07-02 14:48] VITALS: BP 124/72
--- NOTE | 2019-07-02 14:48 | SLEEP CARE CONSULTATION ---
Information from patient questionnaire entered by Pricila Fitzgerald. I have reviewed and concur with the information entered by Pricila Fitzgerald. This document represents the service I personally performed and the decisions made by me, Misti Krause, RN, MSN, CONCRETE SPREADER. History of Present Illness Previous diagnosis: Moderate, Obstructive Sleep Apnea-Hypopnea Syndrome AHI: 21.0 Reason for follow up: three month (requalify, missed compliance) Equipment obtained from: [employer] Mask style: Full face Backup mask available: Yes Last cushion change: a couple of days ago Prior sleep studies: Yes HPI additional information: The adjustment of humidity and heated hose assisted comfort of CPAP. He turned off the heated hose and is only having pass over of water in reservoir for humidity. He tried the nasal mask but found the full face mask was more comfortable after all. He started putting mask on as soon as in bed which also assisted his use of CPAP. He did not try CPAP pillow. He is very pleased with benefit the past 30 days. He is now waking if off his face and replacing it. CPAP Compliance Data - Data Reviewed with Patient Average duration of nightly device use: 4h 50m Compliance rate %: 60 Current pressure setting (cmH2O): 8-12 Humidity settin Heated hose settin Average residual AHI: 2.8 Average large leak: 6m 42s Subjective Missed days of use due to: reports: illness (with cold and nasal congestion ) Patient concerns: reports: nasal congestion (only when ill with cold and used saline nasal spray to clear nose. ), dry mouth, nose, throat (waking him to mild to moderate dry mouth and drinking water 3 of 7 nights ). denies: aerophagia, mask discomfort, air blowing in eyes, mask leak noise, condensation in mask/hose, epistaxis Observed to snore while using device: No Current pressure setting perceived as: comfortable On therapy, patient: reports: sleeping better, awakening more refreshed, being more awake and alert during the day, more rested overall. denies: drowsiness while driving Initial [place] Sleepiness Scale score: 15 Current [place] Sleepiness Scale score: 6 Allergies and Home Medications Known drug allergies: Yes (see above ) Home medication list reviewed: Yes Allergy and home medication list: Medication Name (generic/name brand) Strength & Dosage Sertraline HCL 100mg tab one daily Lisinopril 10mg tab one daily Alprazolam 1mg tab one three times daily Fluoxetine 20mg cap one every morning Gabapentin 300mg cap one 3 times daily Humalog 100 unit/ml Solution 52.5 U per insulin pump and 2 U per SS Hydrocodone/Acetaminophen 5-325mg tab 2-3 daily as needed Benonatate 200mg cap one three times daily Vitamin D2 50,000 IU cap one weekly Esomeprazole Magnesium DR 40mg cap one daily Review of Systems Review of systems same as previous: Yes Physical Exam Blood Pressure: 124/72 Cuff size: long Heart Rate: 88 O2 Saturation: 97 Height: 6 ft 0.25 in Weight: 196 lb 12.8 oz Body Mass Index: 26.5 BMI Classification: Overweight Impression and Plan 1. Obstructive Sleep Apnea-Hypopnea Syndrome,moderate , with fair treatment compliance and good apnea control. On CPAP therapy, the patient has better sleep quality and is more rested overall. He has improved his compliance from 3.3 % at last visit to 60% the past 30days. The missed days were due to nasal congestion from a cold. He is very pleased with benefit of treatment and plans on continuing. He did not meet compliance in the first 90 days of use due to eugene strophobia from air hunger now corrected with pressure change and change of air warmth. He is now comfortable with the pressure range and it also reduced residual AHI. It is unclear whether his insurance will require retesting for coverage of machine or if we can just continue to work on his compliance. He is thus advised to contact his insurance to see if equipment paid for and continue to work on compliance. If a retest is required, it will be a HST. Oral dryness can be reduced by adjusting heated hose lower from 3 to 2 or 1 as the humidity is at maximum. Patient thought he had turned off heated hose and reduced humidity. Printed instructions given on how to change humidity and heated hose settings with rationale explaining why to change. Oral dryness can also be reduced by reducing mask leaks by adjusting his mask slightly. Patient advised that chronic oral dryness can affect dental health and advised to follow up with dentist. In addition, there are oral dryness products that can be used to reduce dryness such as Biotene products, Dry mouth rinse and Xylomelts. Patient to discuss best option with dentist. If nasal congestion recurs, he was advised how a higher humidity will also benefit in addition to using his saline nasal spray prior to CPAP to facilitate nasal breathing. Patient's apnea severity and rationale for treatment to reduce apnea, improve sleep quality and reduce cardiovascular and cerebrovascular events was reviewed. I also reviewed the benefit of consistent device use of CPAP for hypertension, diabetes, anxiety. Since patient has more severe apnea in supine position, patient advised to avoid supine sleep with pillow positioning if unable to use CPAP while ill or if without electricity to reduce apnea risk. He is also advised to lose weight to reduce apnea severity and benefit to diabetes / hypertension. * Continue CPAP pressure at 8-12 cmH2O * Adjust heated hose * Notify me if snoring with mask or feeling that the pressure is too much or too little * Attempt to lose weight * Contact insurance. * Call this office if any problems using CPAP * Return for follow up in 1-2 months , or sooner if concerns arise Time Spent with Patient (minutes): 40 I spent 100% of this visit face to face with the patient with greater than 50% of this was spent time counseling the patient and coordination of care.
== END 2019-07-02 13:36 | disposition home or self-care (01) ==
LOC: SC 13:35
PROVIDERS: ATTEND Nurse Practitioner Family
DX: G47.33 Obstructive sleep apnea (adult) (pediatric) (principal); E66.3 Overweight; Z68.26 Body mass index [BMI] 26.0-26.9, adult
CPT/HCPCS: 99212; 99215

== ENCOUNTER 2020-11-07 16:21 | Emergency (ER) | payer OTHER ==
[2020-11-07] MEDS ORDERED: HYDROmorphone 1 MG/ML CARPUJECT IVP STA ×2 (17:23→18:59)
[2020-11-07] MEDS ORDERED: KETOROLAC 30 MG/ML VIAL IVP STA (17:23)
--- NOTE | 2020-11-07 17:25 | ED Physician Documentation ---
History of Present Illness - Stated complaint Stated Complaint: BACK/LOWER BODY PX - Chief complaint Chief Complaint: General - History obtained from History obtained from: Patient - Additonal information Additional information: 45-year-old gentleman with chronic back pain on pain regimen for same was in his usual state of health until 8 days ago, he was getting out of a tractor and felt severe significant back pain with radiation to the left testicle. His testicles always hurt, that is not new but the pain on the left of his back is new and he also has some numbness in the left leg. No saddle anesthesia, incontinence. Pain was uncontrolled today when he coughed while on the toilet. No fevers. He is a type II diabetic with an insulin pump and his blood sugars have been controlled. Review of Systems Constitutional: reports: Reviewed and negative Eyes: reports: Reviewed and negative Ears: reports: Reviewed and negative Nose: reports: Reviewed and negative Throat: reports: Reviewed and negative Cardiac: reports: Reviewed and negative PD PAST MEDICAL HISTORY - Past Medical History Cardiovascular: Hypertension Respiratory: None Neuro: None Endocrine/Autoimmune: Type 2 diabetes, Other GI: GERD, Other : Other HEENT: None Psych: Anxiety Musculoskeletal: Chronic back pain, Other Derm: None - Past Surgical History Past Surgical History: No General: Bowel surgery Ortho: Other HEENT: Tonsil/Adenoidectomy - Present Medications Home Medications: Ambulatory Orders Medication Instructions Recorded Confirmed HYDROcod/ACETAM 5/325 [[place] 5/325] 1 each PO TID PRN 08/09/13 11/07/20 Insulin Lispro [Humalog] 72 unit [id number] DAILY 08/09/13 11/07/20 Aspirin [Aspir 81] 81 mg PO DAILY 12/12/13 11/07/20 lisinopriL [Lisinopril] 10 mg PO DAILY 04/08/18 11/07/20 Amitriptyline HCl 1 tab PO DAILY 11/07/20 11/07/20 Atorvastatin [Lipitor] 1 tab PO DAILY 11/07/20 11/07/20 Cyclobenzaprine [Flexeril] 10 mg PO TID PRN #20 tablet 11/07/20 Lidocaine Patch 5% [Lidoderm Patch] 1 patch TOP DAILY PRN #10 patch 11/07/20 Meloxicam [Mobic] 7.5 mg PO BID PRN #20 tablet 11/07/20 Oxycodone HCl/Acetaminophen 1 - 2 each PO Q6H PRN #14 tablet 11/07/20 [Percocet 5-325 mg Tablet] - Allergies Allergies/Adverse Reactions: Allergies Allergy/AdvReac Type Severity Reaction Status Date / Time azithromycin AdvReac Nausea Verified 11/07/20 16:24 - Social History Does the pt smoke?: No Smoking Status: Never smoker Does the pt drink ETOH?: Yes Does the pt have substance abuse?: Yes - Immunizations Immunizations are current?: Yes - POLST Patient has POLST: No PD ED PE NORMAL - Vitals Vital signs reviewed: Yes - General General: Alert and oriented X 3, No acute distress (Severe wincing with any motion. Comfortable at rest) - Abdomen Abdomen: Soft, Non tender - Male Male : Other (Testicles are not tender with normal lie, no swelling) - Back Back: No CVA TTP, No spinal TTP - Derm Derm: Normal color, Warm and dry - Extremities Extremities: Other (Mildly diminished sensation in the left leg not following a dermatomal pattern. Otherwise symmetric lower extremity reflexes and strength.) - Neuro Neuro: Alert and oriented X 3, Normal speech Eye Opening: Spontaneous Motor: Obeys Commands Verbal: Oriented GCS Score: 15 - Psych Psych: Normal mood, Normal affect Results - Vitals Vitals: Vital Signs - 24 hr 11/07/20 11/07/20 16:24 18:58 Temperature 36.5 C 37.3 C Heart Rate 102 H 81 Respiratory 16 12 Rate Blood Pressure 139/89 H 148/81 H O2 Saturation 98 100 Oxygen O2 Source Room air - Labs Labs: Laboratory Tests 11/07/20 11/07/20 17:34 17:35 WBC 7.2 RBC 4.78 Hgb 15.4 Hct 42.9 MCV 89.7 MCH 32.2 H MCHC 35.9 RDW 12.6 Plt Count 235 MPV 10.3 Neut # (Auto) 4.7 Lymph # (Auto) 1.5 [place] # (Auto) 0.8 Eos # (Auto) 0.1 Baso # (Auto) 0.0 Absolute Nucleated RBC 0.00 Nucleated RBC % 0.0 Sodium 132 L Potassium 4.0 Chloride 99 L Carbon Dioxide 26 Anion Gap 7.0 BUN 12 Creatinine 0.9 Estimated GFR (MDRD) 110 Glucose 190 H Calcium 8.9 PD MEDICAL DECISION MAKING - ED course ED course: 1. Mild lower lumbar spine degenerative disc disease and arthropathy resulting in mild central and moderate right foraminal stenosis at L4-5. 2. 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 45-year-old gentleman with an acute exacerbation of chronic back pain with some new neurologic symptoms. CT of the lumbar spine done given potential injury and showing degenerative disc disease with sacroiliac arthritis and ankylosing sacroiliitis on the right. He is feeling much better after pain medication. 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 Back pain Qualifiers: Back pain location: low back pain Chronicity: acute Back pain laterality: left Sciatica presence: with sciatica Sciatica laterality: sciatica of left side Qualified Code(s): M54.42 - Lumbago with sciatica, left side Condition: Good Record reviewed to determine appropriate education?: Yes Instructions: ED Neck Back Pain General Prescriptions: Cyclobenzaprine [Flexeril] 10 mg PO TID PRN #20 tablet PRN Reason: Spasms Lidocaine Patch 5% [Lidoderm Patch] 1 patch TOP DAILY PRN #10 patch PRN Reason: pain Comments: Given the finding of ankylosing sacroiliac arthritis on the right, consider following up with a assembler fluorescent lights for consideration of this entity and more specific treatment for your back pain. Otherwise you can take the prescription for Percocet and meloxicam that Dr. Gaitan gave you earlier in the day. Follow- up with your pain management doctor, next available appointment. Forms: Activity restrictions
[2020-11-07 17:40] LABS: BASOPHILS % (AUTO) 0.6 %; EOSINOPHILS # (AUTO) 0.1 10^3/uL (0.0-0.7); EOSINOPHILS % (AUTO) 1.5 %; HCT - HEMATOCRIT 42.9 % (42.0-52.0); HGB - HEMOGLOBIN 15.4 g/dL (14.0-18.0); LYMPHOCYTES # (AUTO) 1.5 10^3/uL (1.5-3.5); LYMPHOCYTES % (AUTO) 20.6 %; MEAN CORPUSCULAR HEMOGLOBIN 32.2 pg (27.0-31.0); MEAN CORPUSCULAR HGB CONC 35.9 g/dL (32.0-36.0); MEAN CORPUSCULAR VOLUME 89.7 fL (80.0-94.0); MEAN PLATELET VOLUME 10.3 fL (7.4-11.4); MONOCYTES # (AUTO) 0.8 10^3/uL (0.0-1.0); MONOCYTES % (AUTO) 11.3 %; NEUTROPHILS # (AUTO) 4.7 10^3/uL (1.5-6.6); NEUTROPHILS % (AUTO) 65.2 %; PLT - PLATELET COUNT 235 10^3/uL (130-450); RED BLOOD COUNT 4.78 10^6/uL (4.70-6.10); RED CELL DISTRIBUTION WIDTH 12.6 % (12.0-15.0); WHITE BLOOD COUNT 7.2 x10^3/uL (4.8-10.8)
[2020-11-07 17:49] LABS: CALCIUM 8.9 mg/dL (8.5-10.3); CREATININE 0.9 mg/dL (0.6-1.2)
--- NOTE | 2020-11-07 18:53 | CT Report ---
PROCEDURE: LUMBAR SPINE WO INDICATIONS: 45-year-old male with worsening left-sided low back pain x1 week, chronic right-sided b ack pain TECHNIQUE: Noncontrast 3 mm thick sections acquired from the T12 level to the sacrum. Sagittal and coronal refo rmats were constructed. For radiation dose reduction, the following was used: automated exposure co ntrol, adjustment of mA and/or kV according to patient size. COMPARISON: None. FINDINGS: Image quality: Excellent. Bones: There is normal bony alignment. No acute vertebral body compression fractures. No suspiciou s lytic or blastic bony lesions. Central spinal caliber is of normal overall caliber. No pars defec ts. There is bilateral sacroiliac jointr hypertrophy with marginal osteophytes and ankylosis noted o n the right. Right iliac a 7 mm osteoma noted as well. T12-L1: Normal in appearance. L1-L2: Mild disc space narrowing without disc bulge, protrusion present. No central or foraminal s tenosis. Small left anterior osteophyte. L2-L3: Normal in appearance. L3-L4: Mild disc space narrowing and circumferential disc bulge present without central stenosis. N o foraminal stenosis. L4-L5: Moderate disc space narrowing and mild circumferential disc bulge results in mild central st enosis. Moderate right and mild left foraminal stenosis. L5-S1: Mild disc space narrowing without disc bulge or central stenosis. No foraminal stenosis. Soft tissues: No retroperitoneal masses or hematomas. Visualized aorta is normal in caliber. IMPRESSION: 1. Mild lower lumbar spine degenerative disc disease and arthropathy resulting in mild central and mo derate right foraminal stenosis at L4-5. 2. 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 Reviewed by: Luis Daniel Alvarado MD on 11/07/2020 5:52 PM [facility]DT Approved by: Luis Daniel Alvarado MD on 11/07/2020 5:52 PM AKDT Station ID: [id number]
[2020-11-07] MEDS ORDERED: LIDOCAINE PATCH 5% TOP STA (20:07)
[2020-11-07 20:30] VITALS: BP 130/83
== END 2020-11-07 20:48 | disposition home or self-care (01) ==
LOC: ED 16:21
DX: M54.42 Lumbago with sciatica, left side (principal); G89.29 Other chronic pain; M51.36 Other intervertebral disc degeneration, lumbar region; M47.896 Other spondylosis, lumbar region; E11.65 Type 2 diabetes mellitus with hyperglycemia; Z79.4 Long term (current) use of insulin; I10 Essential (primary) hypertension
CPT/HCPCS: 36415; 72131; 80048; 85025; 96372; 96374; 96375; 96376; 99284; A9270; J1170

== ENCOUNTER 2020-12-17 07:00 | Outpatient (CLI) | payer OTHER ==
[2020-12-17 20:29] LABS: CORONAVIRUS 229E-RESP PCR NOT DETECTED; CORONAVIRUS HKU1-RESP PCR NOT DETECTED; CORONAVIRUS NL63-RESP PCR NOT DETECTED; CORONAVIRUS OC43-RESP PCR NOT DETECTED
[2020-12-17 20:33] LABS: B. PARAPERTUSSIS- RESP PCR PAN NOT DETECTED; B. PERTUSSIS- RESP PCR PANEL NOT DETECTED; C. PNEUMONIAE- RESP PCR PANEL NOT DETECTED; HUMAN METAPNEUMOVIRUS NOT DETECTED; INFLUENZA A- RESP PCR PANEL NOT DETECTED; INFLUENZA B - RESP PCR PANEL NOT DETECTED; M. PNEUMONIAE- RESP PCR PANEL NOT DETECTED; PARAINFLUENZA VIRUS 1 NOT DETECTED; PARAINFLUENZA VIRUS 2 NOT DETECTED; PARAINFLUENZA VIRUS 3 NOT DETECTED; PARAINFLUENZA VIRUS 4 NOT DETECTED; RHINOVIRUS/ENTEROVIRUS NOT DETECTED; RSV- RESP PCR PANEL NOT DETECTED; SARS-CoV-2 -RESP PCR PANEL DETECTED
== END 2020-12-17 23:59 | disposition home or self-care (01) ==
LOC: COV 07:00
PROVIDERS: ATTEND Emergency Medicine
DX: U07.1 COVID-19 (principal)
CPT/HCPCS: 0202U

== ENCOUNTER 2020-12-17 19:29 | Emergency (ER) | payer OTHER ==
--- NOTE | 2020-12-17 19:45 | ED Physician Documentation ---
PD HPI URI - Stated complaint Stated Complaint: COUGH,SORE THROAT,CP - Chief complaint Chief Complaint: Resp - History obtained from History obtained from: Patient - History of Present Illness Timing - onset: How many days ago (3) Timing details: Gradual onset Associated symptoms: Sore throat, Dry cough, Chest pain. No: Fever, Dyspnea Contributing factors: Sick contact Recently seen: Not recently seen - Additional information Additional information: c/o 3 days of sore throat, nonproductive cough, nausea without vomiting, anterior chest discomfort. patient has had COVID vaccination. He returned from [facility] to [place] today and he says multiple other family members have similar symptoms. Review of Systems Constitutional: denies: Fever, Chills, Sweats Throat: reports: Sore throat Cardiac: reports: Chest pain / pressure. denies: Palpitations, Pedal edema, Calf pain Respiratory: reports: Cough. denies: Dyspnea GI: reports: Nausea. denies: Abdominal Pain, Vomiting PD PAST MEDICAL HISTORY - Past Medical History Cardiovascular: Hypertension Respiratory: None Neuro: None Endocrine/Autoimmune: Type 2 diabetes, Other GI: GERD, Other : Other HEENT: None Psych: Anxiety Musculoskeletal: Chronic back pain, Other Derm: None - Past Surgical History Past Surgical History: No General: Bowel surgery Ortho: Other HEENT: Tonsil/Adenoidectomy - Present Medications Home Medications: Ambulatory Orders Medication Instructions Recorded Confirmed HYDROcod/ACETAM 5/325 [[place] 5/325] 1 each PO TID PRN 08/09/13 11/07/20 Insulin Lispro [Humalog] 72 unit [id number] DAILY 08/09/13 11/07/20 Aspirin [Aspir 81] 81 mg PO DAILY 12/12/13 11/07/20 lisinopriL [Lisinopril] 10 mg PO DAILY 04/08/18 11/07/20 Amitriptyline HCl 1 tab PO DAILY 11/07/20 11/07/20 Atorvastatin [Lipitor] 1 tab PO DAILY 11/07/20 11/07/20 Cyclobenzaprine [Flexeril] 10 mg PO TID PRN #20 tablet 11/07/20 Lidocaine Patch 5% [Lidoderm Patch] 1 patch TOP DAILY PRN #10 patch 11/07/20 Meloxicam [Mobic] 7.5 mg PO BID PRN #20 tablet 06/25/21 Oxycodone HCl/Acetaminophen 1 - 2 each PO Q6H PRN #14 tablet 11/07/20 [Percocet 5-325 mg Tablet] Codeine Phosphate/Guaifenesin 5 - 10 ml PO Q6HR #120 12/17/20 [Guaifen-Codeine 100-10 mg/5 ml] - Allergies Allergies/Adverse Reactions: Allergies Allergy/AdvReac Type Severity Reaction Status Date / Time azithromycin AdvReac Nausea Verified 12/17/20 19:32 - Social History Does the pt smoke?: No Smoking Status: Never smoker Does the pt drink ETOH?: Yes Does the pt have substance abuse?: Yes - Immunizations Immunizations are current?: Yes - POLST Patient has POLST: No PD ED PE NORMAL - Vitals Vital signs reviewed: Yes - General General: Alert and oriented X 3, No acute distress, Well developed/nourished - HEENT HEENT: Moist mucous membranes - Neck Neck: Supple, no meningeal sign - Cardiac Cardiac: RRR, No murmur - Respiratory Respiratory: No respiratory distress, Clear bilaterally - Abdomen Abdomen: Soft, Non tender - Back Back: No CVA TTP - Derm Derm: Normal color, Warm and dry - Extremities Extremities: No edema Results - Vitals Vitals: Vital Signs - 24 hr 12/17/20 12/17/20 19:32 22:09 Temperature 36.6 C Heart Rate 86 89 Respiratory 16 18 Rate Blood Pressure 149/96 H 146/98 H O2 Saturation 99 100 Oxygen O2 Source Room air - Labs Labs: Laboratory Tests 12/17/20 12/17/20 12/17/20 20:37 20:37 20:37 WBC 4.3 L RBC 4.70 Hgb 14.8 Hct 42.5 MCV 90.4 MCH 31.5 H MCHC 34.8 RDW 12.9 Plt Count 224 MPV 9.8 Neut # (Auto) 2.0 Lymph # (Auto) 1.1 L [place] # (Auto) 1.0 Eos # (Auto) 0.0 Baso # (Auto) 0.1 Absolute Nucleated RBC 0.00 Nucleated RBC % 0.0 Sodium 138 Potassium 3.3 L Chloride 104 Carbon Dioxide 25 Anion Gap 9.0 BUN 8 Creatinine 0.7 Estimated GFR (MDRD) 147 Glucose 128 H Calcium 9.1 Total Bilirubin 0.6 AST 21 ALT 24 Alkaline Phosphatase 40 L Troponin I High Sens 5.0 Total Protein 6.7 Albumin 3.7 Globulin 3.0 Albumin/Globulin Ratio 1.2 Lipase 18 L Group A Strep Rapid 12/17/20 21:20 WBC RBC Hgb Hct MCV MCH MCHC RDW Plt Count MPV Neut # (Auto) Lymph # (Auto) [place] # (Auto) Eos # (Auto) Baso # (Auto) Absolute Nucleated RBC Nucleated RBC % Sodium Potassium Chloride Carbon Dioxide Anion Gap BUN Creatinine Estimated GFR (MDRD) Glucose Calcium Total Bilirubin AST ALT Alkaline Phosphatase Troponin I High Sens Total Protein Albumin Globulin Albumin/Globulin Ratio Lipase Group A Strep Rapid Negative - Rads (name of study) chest xray Radiology: Prelim report reviewed, See rad report PD MEDICAL DECISION MAKING - ED course Complexity details: reviewed results, re-evaluated patient, considered differential, d/w patient ED course: despite being COVID vaccinated, patient has (+) COVID 19 on respiratory panel tonight. He is in NAD, unremarkable exam. No concerning findings on blood tests, EKG, CXR. I advised him to return in the morning for IV Regeneron (meets criteria with BMI and DM) Departure - Departure Disposition: 01 Home, Self Care Clinical Impression: COVID-19, Hypokalemia Condition: Good Instructions: ED Potassium Deficiency, COVID-19 [facility] Department of Health Follow-Up: Siobhan Chaes ARNP [Primary Care Provider] - Within 1 week Prescriptions: Codeine Phosphate/Guaifenesin [Guaifen-Codeine 100-10 mg/5 ml] 5 - 10 ml PO Q6HR #120 Comments: There is an intravenous medication that can be given as a one-time dose to help reduce the severity of a COVID infection for patients who meet certain criteria; you meet the criteria for this medication (diabetic, body mass index greater than 25). This medication is only available during the day when the pharmacist is on the hospital campus. I recommend you have this medication; if you are interested in receiving it, come back to the emergency department in the morning around 8 AM and explain when you register that you are here for the medication (Regeneron) Forms: Activity restrictions Discharge Date/Time: 12/17/20 22:10
--- NOTE | 2020-12-17 20:30 | XRAY Report ---
PROCEDURE: Chest 2 View X-Ray INDICATIONS: chest pain, cough TECHNIQUE: 2 view(s) of the chest. COMPARISON: None. FINDINGS: Surgical changes and devices: None. Lungs and pleura: No pleural effusions or pneumothorax. Lungs are clear. Mediastinum: Mediastinal contours are normal. Heart size is normal. Bones and chest wall: No suspicious bony abnormalities. Soft tissues appear unremarkable. IMPRESSION: No evidence of acute pulmonary process. Reviewed by: Ruben Fajardo MD on 12/17/2020 8:29 PM PDT Approved by: Ruben Fajardo MD on 12/17/2020 8:29 PM PDT Station ID: [id number]
[2020-12-17 20:43] LABS: BASOPHILS # (AUTO) 0.1 10^3/uL (0.0-0.1); BASOPHILS % (AUTO) 1.2 %; EOSINOPHILS % (AUTO) 0.9 %; HCT - HEMATOCRIT 42.5 % (42.0-52.0); HGB - HEMOGLOBIN 14.8 g/dL (14.0-18.0); LYMPHOCYTES # (AUTO) 1.1 10^3/uL (1.5-3.5); LYMPHOCYTES % (AUTO) 26.8 %; MEAN CORPUSCULAR HEMOGLOBIN 31.5 pg (27.0-31.0); MEAN CORPUSCULAR HGB CONC 34.8 g/dL (32.0-36.0); MEAN CORPUSCULAR VOLUME 90.4 fL (80.0-94.0); MEAN PLATELET VOLUME 9.8 fL (7.4-11.4); MONOCYTES % (AUTO) 22.8 %; NEUTROPHILS % (AUTO) 47.1 %; PLT - PLATELET COUNT 224 10^3/uL (130-450); RED CELL DISTRIBUTION WIDTH 12.9 % (12.0-15.0); WHITE BLOOD COUNT 4.3 x10^3/uL (4.8-10.8)
[2020-12-17 20:57] LABS: ALBUMIN 3.7 g/dL (3.2-5.5); ALBUMIN/GLOBULIN RATIO 1.2 (1.0-2.2); BILIRUBIN,TOTAL 0.6 mg/dL (0.2-1.0); CALCIUM 9.1 mg/dL (8.5-10.3); CREATININE 0.7 mg/dL (0.6-1.2); POTASSIUM 3.3 mmol/L (3.5-5.0); TOTAL PROTEIN 6.7 g/dL (6.7-8.2)
[2020-12-17] MEDS ORDERED: guaiFENesin/CODEINE 5 ML UDC PO STA (21:48)
[2020-12-17] MEDS ORDERED: POTASSIUM CHLORIDE 20 MEQ TABLET PO STA (21:53)
[2020-12-17 21:55] LABS: RAPID STREP SCREEN Negative (Negative)
[2020-12-17 22:10] VITALS: BP 146/98
== END 2020-12-17 22:10 | disposition home or self-care (01) ==
LOC: ED 19:29
DX: U07.1 COVID-19 (principal); E87.6 Hypokalemia; I10 Essential (primary) hypertension; E11.9 Type 2 diabetes mellitus without complications; K21.9 Gastro-esophageal reflux disease without esophagitis; G89.29 Other chronic pain; M54.9 Dorsalgia, unspecified; Z79.4 Long term (current) use of insulin; Z79.82 Long term (current) use of aspirin; Z79.899 Other long term (current) drug therapy
CPT/HCPCS: 36415; 71046; 80053; 83690; 84484; 85025; 87070; 87430; 93005; 99284; A9270

== ENCOUNTER 2020-12-18 08:29 | Emergency (ER) | payer OTHER ==
[2020-12-18] MEDS ORDERED: CASIRIVIMAB/IMDEVIMAB 10 ML in SODIUM CHLORIDE 0.9% 50 ML IV ONE (09:30)
--- NOTE | 2020-12-18 10:20 | ED Physician Documentation ---
History of Present Illness - Stated complaint Stated Complaint: C+ - Chief complaint Chief Complaint: General - History obtained from History obtained from: Patient - Additonal information Additional information: Department after being diagnosed with Covid last night and told to come back for Regeneron infusion. Patient states he does not really feel any worse since last night except that he has a headache. No shortness of breath. Patient has had an ongoing dry cough. No fevers or chills. No body aches. No lightheadedness. The patient states he was vaccinated with the majority of vaccine, but the rest of his family including his is not vaccinated and he is very anxious about their welfare as they are also all Covid positive. He states his children are aged 9-18. He also just had a sister and [id number] of Covid, as well. The patient began to feel sick while in [place] for his sister's memorial service a few days ago. He did not realize he had Covid and states that he flew back home to [place]. Review of Systems Ten Systems: 10 systems reviewed and negative Constitutional: reports: Reviewed and negative Eyes: reports: Reviewed and negative Ears: reports: Reviewed and negative Nose: reports: Congestion Throat: reports: Reviewed and negative Cardiac: reports: Chest pain / pressure (Soreness) Respiratory: reports: Cough. denies: Dyspnea GI: reports: Reviewed and negative : reports: Reviewed and negative Skin: reports: Reviewed and negative Musculoskeletal: reports: Reviewed and negative Neurologic: reports: Reviewed and negative Psychiatric: reports: Reviewed and negative Endocrine: reports: Reviewed and negative Immunocompromised: reports: Reviewed and negative PD PAST MEDICAL HISTORY - Past Medical History Past Medical History: Yes Cardiovascular: Hypertension Respiratory: None Neuro: None Endocrine/Autoimmune: Type 2 diabetes, Other GI: GERD, Other : Other HEENT: None Psych: Anxiety Musculoskeletal: Chronic back pain, Other Derm: None - Past Surgical History Past Surgical History: No General: Bowel surgery Ortho: Other HEENT: Tonsil/Adenoidectomy - Present Medications Home Medications: Ambulatory Orders Medication Instructions Recorded Confirmed Insulin Lispro [Humalog] 72 unit [id number] DAILY 08/09/13 12/18/20 Aspirin [Aspir 81] 81 mg PO DAILY 12/12/13 12/18/20 lisinopriL [Lisinopril] 10 mg PO DAILY 04/08/18 12/18/20 Amitriptyline HCl 1 tab PO DAILY 11/07/20 12/18/20 Atorvastatin [Lipitor] 1 tab PO DAILY 11/07/20 12/18/20 Meloxicam [Mobic] 7.5 mg PO BID PRN #20 tablet 11/07/20 12/18/20 Codeine Phosphate/Guaifenesin 5 - 10 ml PO Q6HR #120 12/17/20 12/18/20 [Guaifen-Codeine 100-10 mg/5 ml] - Allergies Allergies/Adverse Reactions: Allergies Allergy/AdvReac Type Severity Reaction Status Date / Time azithromycin AdvReac Nausea Verified 12/18/20 08:52 - Social History Does the pt smoke?: No Smoking Status: Never smoker Does the pt drink ETOH?: Yes Does the pt have substance abuse?: Yes - Immunizations Immunizations are current?: Yes - POLST Patient has POLST: No PD ED PE NORMAL - Vitals Vital signs reviewed: Yes - General General: Alert and oriented X 3, No acute distress, Well developed/nourished - HEENT HEENT: Atraumatic, PERRL, EOMI, Moist mucous membranes - Neck Neck: Supple, no meningeal sign - Cardiac Cardiac: RRR, No murmur, Strong equal pulses - Respiratory Respiratory: No respiratory distress, Clear bilaterally - Abdomen Abdomen: Soft, Non tender, Non distended - Derm Derm: Normal color, Warm and dry, No rash - Extremities Extremities: No deformity, No edema, No calf tenderness / cord - Neuro Neuro: Alert and oriented X 3 - Psych Psych: Normal mood, Normal affect Results - Vitals Vitals: Vital Signs - 24 hr 12/18/20 12/18/20 08:48 09:03 Temperature 36.7 C Heart Rate 96 91 Respiratory 23 18 Rate Blood Pressure 131/91 H 130/90 H O2 Saturation 95 97 Oxygen O2 Source Room air PD MEDICAL DECISION MAKING - ED course Complexity details: considered differential, d/w patient ED course: The patient was treated with an Regeneron infusion and was stable throughout his stay in the emergency department. He was quite well-appearing and his vital signs were all looked good, and I did not feel that repeat work-up was indicated at this point in time. We have discussed symptomatic management at home and the usual indications for return. Departure - Departure Disposition: 01 Home, Self Care Clinical Impression: COVID Condition: Stable Instructions: COVID-19 [facility]
[2020-12-18 11:12] VITALS: BP 138/102
== END 2020-12-18 11:13 | disposition home or self-care (01) ==
LOC: ED 08:29
DX: U07.1 COVID-19 (principal)
CPT/HCPCS: J7040; M0243; Q0244

== ENCOUNTER 2021-04-29 14:30 | Outpatient (CLI) | payer OTHER ==
--- NOTE | 2021-04-29 16:17 | XRAY Report ---
PROCEDURE: Toe(s) LT INDICATIONS: DIABETIC FOOT ULCER TECHNIQUE: 3 views of the great toe(s) acquired. COMPARISON: None FINDINGS: Bones: No fractures or dislocations. Osteoarthritic changes are noted at first MTP joint and first i nterphalangeal joint. Subtle cortical irregularity along medial cortex of first metatarsal neck is se en. Soft tissues: Soft tissue swelling over medial aspect of first MTP joint and first metatarsal shaft i s seen. IMPRESSION: Soft tissue swelling over medial aspect of first MTP joint with underlying erosive changes in first m etatarsal neck concerning for osteomyelitis in this area. Left great toe osteoarthritis. No acute fra cture or dislocation. Reviewed by: Siva Patino MD on 04/29/2021 4:16 PM PST Approved by: Siva Patino MD on 04/29/2021 4:16 PM PST Station ID: [id number]
== END 2021-04-29 14:31 | disposition home or self-care (01) ==
LOC: DI 14:30
PROVIDERS: ATTEND Registered Nurse
DX: E13.621 Other specified diabetes mellitus with foot ulcer (principal); R93.6 Abnormal findings on diagnostic imaging of limbs; R93.89 Abnormal findings on diagnostic imaging of other specified body structures; M19.072 Primary osteoarthritis, left ankle and foot
CPT/HCPCS: 73660

== ENCOUNTER 2022-11-29 15:50 | Outpatient (CLI) | payer OTHER ==
--- NOTE | 2022-11-29 16:45 | XRAY Report ---
PROCEDURE: Knee 3 View RT INDICATIONS: PAIN IN RIGHT KNEE TECHNIQUE: 3 views of the right knee(s) were acquired. COMPARISON: None. FINDINGS: Bones: There is a minimally displaced fracture at the inferior tip of the patella. No suspicious bon y lesions. Mild to moderate medial and lateral compartment narrowing. No erosions. Soft tissues: Mild knee joint effusion. No suspicious soft tissue calcifications or masses. Soft ti ssue edema is noted overlying the patella. Several small calcifications IMPRESSION: Minimally displaced inferior patellar tip fracture. Reviewed by: Pilar Maravilla MD on 11/29/2022 4:44 PM PDT Approved by: Pilar Maravilla MD on 11/29/2022 4:44 PM PDT Station ID: [id number]
== END 2022-11-29 15:51 | disposition home or self-care (01) ==
LOC: DI 15:50
PROVIDERS: ATTEND Internal Medicine
DX: S82.001A Unspecified fracture of right patella, initial encounter for closed fracture (principal)

== ENCOUNTER 2022-12-22 10:58 | Emergency (ER) | payer OTHER ==
--- NOTE | 2022-12-22 11:30 | ED Physician Documentation ---
PD HPI UPPER EXT INJURY - Stated complaint Stated Complaint: RT SHOULDER PX, BACK PX - Chief complaint Chief Complaint: Back Pain - History obtained from History obtained from: Patient - History of Present Illness Location: Right, Shoulder, Other (and also low back left side.) Type of injury: No: Fall, Twist Timing - onset: How many days ago (has ongoing low back pain and it is worse than usual without noted injury. New right shoulder pain both front and back, again without obvious initiating event. Pain with all ROM.) Timing - details: Gradual onset, Still present, Waxing and waning Worsened by: Moving Associated symptoms: No: Weakness, Numbness, Swelling, Discolored Contributing factors: No: Anticoagulated Review of Systems Constitutional: denies: Fever, Chills Eyes: denies: Irritation Skin: denies: Rash, Lesions Musculoskeletal: reports: Back pain. denies: Neck pain Neurologic: denies: Focal weakness, Numbness PD PAST MEDICAL HISTORY - Past Medical History Past Medical History: Yes Cardiovascular: Hypertension Respiratory: None Neuro: None Endocrine/Autoimmune: Type 2 diabetes, Other GI: GERD, Other : Other HEENT: None Psych: Anxiety Musculoskeletal: Chronic back pain, Other Derm: None - Past Surgical History Past Surgical History: No General: Bowel surgery Ortho: Other HEENT: Tonsil/Adenoidectomy - Present Medications Home Medications: Ambulatory Orders Medication Instructions Recorded Confirmed Insulin Lispro [Humalog] 72 unit [id number] DAILY 08/09/13 12/18/20 Aspirin [Aspir 81] 81 mg PO DAILY 12/12/13 12/18/20 lisinopriL [Lisinopril] 10 mg PO DAILY 04/08/18 12/18/20 Amitriptyline HCl 1 tab PO DAILY 11/07/20 12/18/20 Atorvastatin [Lipitor] 1 tab PO DAILY 11/07/20 12/18/20 Meloxicam [Mobic] 7.5 mg PO BID PRN #20 tablet 11/07/20 12/18/20 Codeine Phosphate/Guaifenesin 5 - 10 ml PO Q6HR #120 12/17/20 12/18/20 [Guaifen-Codeine 100-10 mg/5 ml] Ondansetron Odt [Zofran] 4 mg TL Q6H PRN #10 tablet 05/08/21 Meloxicam [Mobic] 7.5 mg PO BID 10 Days #20 tablet 12/22/22 dexAMETHasone [Decadron] 4 mg PO DAILY #5 tablet 12/22/22 tiZANidine [Zanaflex] 4 mg PO Q8H PRN #25 tablet 12/22/22 - Allergies Allergies/Adverse Reactions: Allergies Allergy/AdvReac Type Severity Reaction Status Date / Time azithromycin AdvReac Nausea Verified 12/22/22 11:08 - Social History Does the pt smoke?: No Smoking Status: Never smoker Does the pt drink ETOH?: Yes Does the pt have substance abuse?: Yes - Immunizations Immunizations are current?: Yes - POLST Patient has POLST: No PD ED PE NORMAL - Vitals Vital signs reviewed: Yes - General General: Alert and oriented X 3, No acute distress, Well developed/nourished - Cardiac Cardiac: RRR, No murmur - Respiratory Respiratory: No respiratory distress, Clear bilaterally - Abdomen Abdomen: Soft, Non tender - Back Back: No spinal TTP (has some soft tissue tenderness left lower back without deformity, rash. has soft tissue tenderness to touch.) - Derm Derm: Normal color, No rash - Extremities Extremities: Other (right shoulder with some tenderness both anteriorly and postrior around scapula. ROM pain most with reaching behind his own back. ) - Neuro Neuro: Alert and oriented X 3, No motor deficit, No sensory deficit, Normal speech Results - Vitals Vitals: Vital Signs - 24 hr 12/22/22 12/22/22 11:05 12:33 Temperature 36.5 C 36.6 C Heart Rate 74 72 Respiratory 20 19 Rate Blood Pressure 148/87 H 144/82 H O2 Saturation 97 98 Oxygen O2 Source Room air - Rads (name of study) right shoulder Relevant Findings:: Prelim report reviewed, EMP independent interpretation of test (arthitic changes. No acute. ) PD Medical Decision Making - ED course Complexity details: considered differential (seems like shoulder strain or tendonitis. Back is chronic with recent increase. No red flags for [facility] to suggest need for imaging/labs. ), d/w patient Departure - Departure Disposition: 01 Home, Self Care Clinical Impression: Low back pain Qualifiers: Chronicity: acute Back pain laterality: left Sciatica presence: without sciatica Qualified Code(s): M54.50 - Low back pain, unspecified Shoulder pain, acute Qualifiers: Laterality: right Qualified Code(s): M25.511 - Pain in right shoulder Condition: Stable Record reviewed to determine appropriate education?: Yes Instructions: ED Sprain Shoulder Follow-Up: [facility] [Provider Group] Prescriptions: dexAMETHasone [Decadron] 4 mg PO DAILY #5 tablet Meloxicam [Mobic] 7.5 mg PO BID 10 Days #20 tablet tiZANidine [Zanaflex] 4 mg PO Q8H PRN #25 tablet PRN Reason: Spasms Comments: Your shoulder x-ray shows some minimal arthritis but no obvious acute injury. I would use the sling periodically through the day to reduce motion and activity. Avoid heavy lifting push pull or overhead reaching. Have the shoulder out of the sling with range of motion a few times daily so it does not stiffen. For your low back, heat to the area and gentle stretching to help with the muscles. For both shoulder and back, I would suggest using Decadron steroid anti- inflammatory daily for the next several days and then changed to meloxicam nonsteroidal anti-inflammatory twice daily with food after that. Continue with usual Vicodin pain pills as prescribed by your pain clinic. Add tizanidine muscle relaxant to help with stiffness in the back primarily but it may help the shoulder as well. Add Tylenol every 4-6 hours if needed for pain. I sent new prescriptions to [facility] in [place]. Follow-up with your orthopedist in about a week or so if the shoulder is not improving well. Discharge Date/Time: 12/22/22 12:33
[2022-12-22] MEDS: dexAMETHasone 4 MG TABLET PO STA (11:52)
[2022-12-22 12:42] VITALS: BP 144/82; O2SAT 98
--- NOTE | 2022-12-22 13:12 | XRAY Report ---
PROCEDURE: Shoulder 3 View RT INDICATIONS: shoulder pain 5-6 days TECHNIQUE: 3 views of the shoulder were acquired. COMPARISON: None. FINDINGS: Bones: No acute fractures or dislocations. No suspicious bony lesions. Visualized ribs appear inta ct. Soft tissues: No suspicious soft tissue calcifications. IMPRESSION: No acute osseous abnormality. If there is clinical concern or persistent symptoms, additional imaging such as repeat radiographs or advanced imaging (e.g. CT, MRI) may be helpful for further evaluation. Reviewed by: Itz Rashid MD on 12/22/2022 1:11 PM PDT Approved by: Itz Rashid MD on 12/22/2022 1:11 PM PDT Station ID: [id number]
== END 2022-12-22 12:33 | disposition home or self-care (01) ==
LOC: ED 10:58
DX: M25.511 Pain in right shoulder (principal); M54.50 Low back pain, unspecified; I10 Essential (primary) hypertension; E11.9 Type 2 diabetes mellitus without complications; Z79.4 Long term (current) use of insulin; Z79.82 Long term (current) use of aspirin; Z79.899 Other long term (current) drug therapy
CPT/HCPCS: 99283; 99284

== ENCOUNTER 2023-09-10 15:37 | Emergency (ER) | payer OTHER ==
[2023-09-10 15:46] VITALS: BP 136/83; O2SAT 99
--- NOTE | 2023-09-10 15:59 | ED Physician Documentation ---
PD HPI BACK PAIN - Stated complaint Stated Complaint: LOWER BACK PX - Chief complaint Chief Complaint: Back Pain - History obtained from History obtained from: Patient - Additional information Additional information: 48-year-old gentleman presents for the evaluation of exacerbation of chronic back pain. He has had back pain for 18 years with occasional flares. He had a flare for about a week now, it is worse than his usual flare. It is in the right low back and radiates to the right abdomen. It is worse especially if he tries to get up from a sitting or bent over position. He denies urinary incontinence, saddle anesthesia, fevers. He is a diabetic and blood sugars have been generally controlled with the pump lately. 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 PD PAST MEDICAL HISTORY - Past Medical History Cardiovascular: Hypertension Respiratory: None Neuro: None Endocrine/Autoimmune: Type 2 diabetes, Other GI: GERD, Other : Other HEENT: None Psych: Anxiety Musculoskeletal: Chronic back pain, Other Derm: None - Past Surgical History Past Surgical History: No General: Bowel surgery Ortho: Other HEENT: Tonsil/Adenoidectomy - Present Medications Home Medications: Ambulatory Orders Medication Instructions Recorded Confirmed Insulin Lispro [Humalog] 72 unit [id number] DAILY 08/09/13 12/18/20 Aspirin [Aspir 81] 81 mg PO DAILY 12/12/13 12/18/20 lisinopriL [Lisinopril] 10 mg PO DAILY 04/08/18 12/18/20 Amitriptyline HCl 1 tab PO DAILY 11/07/20 12/18/20 Atorvastatin [Lipitor] 1 tab PO DAILY 11/07/20 12/18/20 Meloxicam [Mobic] 7.5 mg PO BID PRN #20 tablet 11/07/20 12/18/20 Codeine Phosphate/Guaifenesin 5 - 10 ml PO Q6HR #120 12/17/20 12/18/20 [Guaifen-Codeine 100-10 mg/5 ml] Ondansetron Odt [Zofran] 4 mg TL Q6H PRN #10 tablet 05/08/21 Meloxicam [Mobic] 7.5 mg PO BID 10 Days #20 tablet 08/09/23 dexAMETHasone [Decadron] 4 mg PO DAILY #5 tablet 12/22/22 tiZANidine [Zanaflex] 4 mg PO Q8H PRN #25 tablet 12/22/22 Gabapentin [Neurontin] 300 mg PO TID PRN #30 cap 09/10/23 - Allergies Allergies/Adverse Reactions: Allergies Allergy/AdvReac Type Severity Reaction Status Date / Time azithromycin AdvReac Nausea Verified 09/10/23 15:45 - Social History Does the pt smoke?: No Smoking Status: Never smoker Does the pt drink ETOH?: Yes Does the pt have substance abuse?: Yes Substance Use and Type: Marijuana - Immunizations Immunizations are current?: Yes - POLST Patient has POLST: No PD ED PE NORMAL - Vitals Vital signs reviewed: Yes - General General: Alert and oriented X 3, Other (Comfortable at rest but winces with motion.) - Back Back: No spinal TTP - Extremities Extremities: Other (The patient has equal and normal Achilles and patellar reflexes bilaterally. Normal sensation in all areas of the legs. Patient denies saddle anesthesia. Normal strength in flexion-extension at the ankles, knees, and flexion of the hips.) - Neuro Neuro: Alert and oriented X 3, Normal speech Results - Vitals Vitals: Vital Signs - 24 hr 09/10/23 15:40 Temperature 36.9 C Heart Rate 99 Respiratory 16 Rate Blood Pressure 136/83 H O2 Saturation 99 Oxygen O2 Source Room air PD Medical Decision Making - ED course ED course: He has an exacerbation of chronic back pain. He been to the clinic twice in the last week and Toradol has been helpful but only briefly so. He would like to do a steroid shot today and understands this may worsen his blood sugars but just plans to manipulate his pump to address that. Otherwise did not want any painkillers per se but was willing to try gabapentin after discussion. Departure - Departure Disposition: 01 Home, Self Care Clinical Impression: Back pain Condition: Good Record reviewed to determine appropriate education?: Yes Instructions: ED Low Back Pain Injury Prescriptions: Gabapentin [Neurontin] 300 mg PO TID PRN #30 cap PRN Reason: Pain Comments: Make sure to get appropriate follow-up for that abnormal MRI you had done a year ago. I do not know the details but it sounds like you need to see a back specialist. I sent your prescription electronically to the [facility] in [place]. Do not drink or drive while taking gabapentin. You can continue the other medications you are on with this. As discussed your blood sugars may go up due to the steroid shot, you can manipulate your pump per instructions from your vessel specialist to address this. Return for new or worsening symptoms. Follow-up with your doctor as scheduled.
[2023-09-10] MEDS: DEXAMETHASONE 10 MG/ML VIAL IM STA (16:07)
== END 2023-09-10 16:13 | disposition home or self-care (01) ==
LOC: ED 15:37
DX: M54.50 Low back pain, unspecified (principal); G89.29 Other chronic pain; E11.9 Type 2 diabetes mellitus without complications; Z96.41 Presence of insulin pump (external) (internal); R93.7 Abnormal findings on diagnostic imaging of other parts of musculoskeletal system
CPT/HCPCS: 96372; 99283; 99284